=== PATIENT | female | born 1935 | race Caucasian/White ===

== ENCOUNTER 2016-10-02 15:37 | Emergency (ER) | payer MEDICARE, OTHER ==
[2016-10-02 15:47] VITALS: BP 153/95; TEMP 97.9; O2SAT 91
--- NOTE | 2016-10-02 16:13 | RAD ---
PROCEDURE: Ankle,Right 3 Views CLINICAL HISTORY: twisted fell INDICATION: Same as above COMPARISON: None . TECHNIQUE: 3.0 Views of the right ankle were done. FINDINGS: There is nondisplaced spiral fracture through the distal right fibula extending into the distal tibiofibular articulation. There is adjacent soft tissue swelling. There is a small plantar calcaneal spur. There is presence of a 5 mm well-circumscribed lytic lesion with sclerotic margins in the medial subarticular talar dome and may represent a small osteochondral defect There is generalized osteopenia of the bones The joint spaces are relatively well-maintained. There is no visualization of any radiopaque foreign bodies. IMPRESSION: There is nondisplaced spiral fracture through the distal right fibula extending into the distal tibiofibular articulation. There is adjacent soft tissue swelling. There is a small plantar calcaneal spur. There is presence of a 5 mm well-circumscribed lytic lesion with sclerotic margins in the medial subarticular talar dome and may represent a small osteochondral defect. Electronically signed by: Jeronimo Steiner MD 10/02/2016 4:13 PM CDT
--- NOTE | 2016-10-02 16:50 | ED.PDOC ---
History of Present Illness - General Chief Complaint: Lower Extremity Injury Stated Complaint: fall Time Seen by Provider: 10/02/16 15:38 Source: patient Exam Limitations: no limitations - History of Present Illness Initial Comments: the patient is an 80-year-old female who twisted her right ankle and fell when she was walking across the street. She injured her right ankle but no other injuries. The laceration. There is swelling and tenderness about the medial and lateral malleoli. She is neurovascularly intact distally. Tendon function appears to be preserved. Pulses are palpable distally. Capillary refill is good. Passive range of motion appears to be preserved. Occurred: just prior to arrival Pain - Lower Extremity: moderate: Right Ankle Method of Injury: fell, twisted Improving Factors: immobilization Worsening Factors: movement Allergies/Adverse Reactions: Allergies NO KNOWN ALLERGY Allergy (Verified 10/02/16 15:47) Home Medications: Ambulatory Orders Btfwwmbahclws-Jwau-Hyxjbshbwp [Fioricet] 1 ea PO Q8H PRN #21 tab 10/02/16 Review of Systems - Review of Systems Constitutional: States: no symptoms reported EENTM: States: no symptoms reported Respiratory: States: no symptoms reported Cardiology: States: no symptoms reported Gastrointestinal/Abdominal: States: no symptoms reported Genitourinary: States: no symptoms reported Musculoskeletal: States: see HPI Skin: States: no symptoms reported Neurological: States: no symptoms reported Endocrine: States: no symptoms reported All other Systems: No Change from Baseline Past Medical History (General) - Patient Medical History Hx of COPD: Yes Surgical History: no surgical history - Vaccination History Hx Tetanus, Diphtheria Vaccination: No Hx Influenza Vaccination: No Hx Pneumococcal Vaccination: No Immunizations Up to Date: No - Social History Hx Tobacco Use: Yes Hx Alcohol Use: No Hx Substance Use: No Hx Substance Use Treatment: No Hx Depression: No - Activities of Daily Living Hospice Agency (if applicable):: None - Female History Patient is a Female of Child Bearing Age (10 -59 yrs old): No Patient : No Family Medical History - Family History Mother Family History: Unknown Physical Exam - Physical Exam General Appearance: Alert, Comfortable, No apparent distress Eyes, Ears, Nose, Throat: PERRL/EOMI, normal ENT inspection Neck: non-tender, full range of motion, supple Cardiovascular/Respiratory: normal peripheral pulses, normal breath sounds, no respiratory distress, other - regular rate Thigh/Hip: normal inspection, non-tender, no evidence of injury, normal ROM Leg: normal inspection, non-tender, no evidence of injury, normal ROM Knee: normal inspection, non-tender, no evidence of injury, normal ROM Ankle: pain, swelling - see history of present illness, other Foot: normal inspection, non-tender, no evidence of injury, normal ROM Neuro/Tendon: normal sensation, normal motor functions, normal tendon functions Mental Status: alert, oriented x 3 Comments: Vital Signs - 24 hr 10/02/16 15:38 Temperature 97.9 F Pulse Rate [ 88 pulse ox] Respiratory 20 Rate Blood Pressure 153/95 [Left Arm] O2 Sat by Pulse 91 L Oximetry Progress - Progress Progress: 10/02/16 16:50 the patient is a 80-year-old female presenting to the emergency room secondary to a fall while walking. The patient has sustained a bimalleolar fracture. The patient will be immobilized with splinting. Ibuprofen and Fioricet can be used for discomfort. ER warnings were given for any worsening. She needs to follow up with later this week for further evaluation and intervention is warranted. She is to use a walker and be nonweightbearing with that leg. ER warnings were given. 10/02/16 16:51 Departure - Departure Clinical Impression: Bimalleolar fracture of right ankle Qualifiers: Encounter type: initial encounter Fracture type: closed Qualifier Code: ( S82.841A) Displaced bimalleolar fracture of right lower leg, initial encounter for closed fracture Disposition: Discharge to Home or Self Care Condition: Fair Departure Forms: ED Discharge - Pt. Copy, Patient Portal Self Enrollment Instructions: DI for Ankle Fracture Diet: regular diet Activity: no pushing/pulling with affected limb Referrals: Kiko Saunders III, MD [Primary Care Provider] - 1-2 Weeks Prescriptions: Pwnfojiukgrnn-Pndi-Dmbqdspwxc [Fioricet] 1 ea PO Q8H PRN #21 tab PRN Reason: Pain Home Medications: Ambulatory Orders Vrhyfuzrayenb-Klwu-Thdcbjipdr [Fioricet] 1 ea PO Q8H PRN #21 tab 10/02/16 Additional Instructions: the patient is a 80-year-old female presenting to the emergency room secondary to a fall while walking. The patient has sustained a bimalleolar fracture. The patient will be immobilized with splinting. Ibuprofen and Fioricet can be used for discomfort. ER warnings were given for any worsening. She needs to follow up with later this week for further evaluation and intervention is warranted. She is to use a walker and be nonweightbearing with that leg. ER warnings were given.
[2016-10-02] MEDS ORDERED: IBUPROFEN 200 MG TAB PO ONE (16:52)
[2016-10-02] MEDS ORDERED: HYDROcodone 5MG/APAP 325MG 1 EA TAB PO ONE (16:52)
== END 2016-10-02 17:17 | disposition home or self-care (01) ==
LOC: ER 15:37
DX: S82.841A Displaced bimalleolar fracture of right lower leg, initial encounter for closed fracture (principal); J44.9 Chronic obstructive pulmonary disease, unspecified; Z87.891 Personal history of nicotine dependence; W19.XXXA Unspecified fall, initial encounter; X50.1XXA Overexertion from prolonged static or awkward postures, initial encounter; Y92.410 Unspecified street and highway as the place of occurrence of the external cause

== ENCOUNTER → 2016-10-05 | Outpatient (CLI) | payer MEDICARE, OTHER ==
--- NOTE | 2016-10-05 13:37 | RAD ---
EXAM DESCRIPTION: Ankle,Right 3 Views CLINICAL HISTORY: 80 years,Female,FX COMPARISON: October 02, 2016 FINDINGS: The right ankle demonstrates demonstrates overlying splinting material. There is a nondisplaced oblique fracture to the distal fibula and a nondisplaced fracture of the lateral talus as well. Ankle mortise and talar dome unremarkable. Soft tissues are unremarkable. IMPRESSION: Newly casted right ankle with a bimalleolar fracture nondisplaced [] Electronically signed by: Kiko Woodard MD 10/05/2016 1:27 PM CDT
== END | disposition home or self-care (01) ==
LOC: RAD 09:36
PROVIDERS: ATTEND Orthopaedic Surgery
DX: M25.571 Pain in right ankle and joints of right foot (principal)

== ENCOUNTER → 2016-10-06 | Outpatient (CLI) | payer MEDICARE, OTHER | END | disposition home or self-care (01) | LOC: YCHH 10:41 | PROVIDERS: ATTEND Family Medicine | DX: D53.9 Nutritional anemia, unspecified (principal); I10 Essential (primary) hypertension; J44.9 Chronic obstructive pulmonary disease, unspecified ==

== ENCOUNTER → 2016-10-09 | Outpatient (CLI) | payer MEDICARE, OTHER | END | disposition home or self-care (01) | LOC: YCHH 09:16 | PROVIDERS: ATTEND Family Medicine | DX: I10 Essential (primary) hypertension (principal); E53.8 Deficiency of other specified B group vitamins; E55.9 Vitamin D deficiency, unspecified; J44.9 Chronic obstructive pulmonary disease, unspecified ==

== ENCOUNTER → 2016-10-13 | Outpatient (CLI) | payer MEDICARE, OTHER ==
--- NOTE | 2016-10-14 10:40 | RAD ---
Procedure: 3 View right Ankle Exam date: 10/13/2016 8:58 AM CDT Ordering: REX QUIGLEY Clinical Indication: BIMALLEOLAR FX OF ANKLE Comparison: October 05, 2016 FINDINGS: Casting material in place. No significant interval healing of the bimalleolar fractures. No new fractures identified. There is diffuse disuse osteopenia. IMPRESSION: 1. Stable bimalleolar fractures with no significant callus formation. Casting material in place. No significant change. Electronically signed by: Rigoberto Bean MD 10/14/2016 10:39 AM CDT
== END | disposition home or self-care (01) ==
LOC: RAD 08:57
PROVIDERS: ATTEND Orthopaedic Surgery
DX: S82.844D Nondisplaced bimalleolar fracture of right lower leg, subsequent encounter for closed fracture with routine healing (principal)

== ENCOUNTER → 2016-10-16 | Outpatient (CLI) | payer MEDICARE, OTHER | END | disposition home or self-care (01) | LOC: YCHH 10:30 | PROVIDERS: ATTEND Family Medicine | DX: M17.2 Bilateral post-traumatic osteoarthritis of knee (principal); I10 Essential (primary) hypertension ==

== ENCOUNTER → 2016-10-18 | Outpatient (CLI) | payer OTHER | END | disposition home or self-care (01) | LOC: YCHH 17:23 | PROVIDERS: ATTEND Family Medicine | DX: J44.9 Chronic obstructive pulmonary disease, unspecified (principal); I10 Essential (primary) hypertension; N39.0 Urinary tract infection, site not specified ==

== ENCOUNTER → 2016-10-27 | Outpatient (CLI) | payer OTHER ==
--- NOTE | 2016-10-27 11:53 | RAD ---
EXAM DESCRIPTION: Ankle,Right 3 Views CLINICAL HISTORY: 80 years,Female,BIMALLEOLAR FX OF ANKLE COMPARISON: October 13, 2016 FINDINGS: The right ankle demonstrates overlying cast obscuring most detail. There is oblique fracture to the distal fibula with minimal displacement stable. The fracture of the medial malleolus is not seen well through this cast but is nondisplaced. Ankle mortise and talar dome unremarkable. IMPRESSION: Right casted ankle fixating a minimal displaced oblique fracture to the distal right fibula and nondisplaced fracture of the medial malleolus. Note significant changes prior study. [] Electronically signed by: Kiko Woodard MD 10/27/2016 11:52 AM CDT
== END | disposition home or self-care (01) ==
LOC: RAD 08:39
PROVIDERS: ATTEND Orthopaedic Surgery
DX: S82.844D Nondisplaced bimalleolar fracture of right lower leg, subsequent encounter for closed fracture with routine healing (principal); X58.XXXA Exposure to other specified factors, initial encounter

== ENCOUNTER 2016-11-11 08:44 | Emergency (ER) | payer MEDICARE ==
--- NOTE | 2016-11-11 08:56 | ED.PDOC ---
History of Present Illness - General Chief Complaint: Respiratory Problem Stated Complaint: Difficulty breathing Time Seen by Provider: 11/11/16 08:55 Source: patient, RN notes reviewed, Vital Signs reviewed Exam Limitations: no limitations - History of Present Illness Initial Comments: Dominique Vallejo 80 y/o female with history of copd and hbp stated that she had non productive cough this am and sob given 4 nebulzer treatment with b agonist and continue to have difficulty breathing.She continue to smoke 1ppd and had been counseled by her primary md for the last 10 years accdg. to daughter but again counseled while talking to patient that best treatment for her is again to stop her smoking habits but stating she wont quit she only live by herself and smoking gives her some comfort.Denies fever chest pain and hemoptysis.Had closed reduction and plaster cast of right bimalleolar fracture several weeks ago. Timing/Duration: other - today Severity: moderate Activities at Onset: none Possible Cause: chronic episodes, smoke exposure - smoker for 60 years and continue to smoke Improving Factors: nothing Worsening Factors: nothing Associated Symptoms: cough Respiratory Risk Factors: other - cigarettes Allergies/Adverse Reactions: Allergies NO KNOWN ALLERGY Allergy (Verified 10/02/16 15:47) Review of Systems - Review of Systems Constitutional: States: no symptoms reported EENTM: States: no symptoms reported Respiratory: States: see HPI Cardiology: States: no symptoms reported Gastrointestinal/Abdominal: States: no symptoms reported Genitourinary: States: no symptoms reported Musculoskeletal: States: no symptoms reported Skin: States: no symptoms reported Neurological: States: no symptoms reported Endocrine: States: no symptoms reported Hematologic/Lymphatic: States: no symptoms reported Past Medical History (General) - Patient Medical History Hx of COPD: Yes Hx Hypertension: Yes Surgical History: other - knee,cataract,hysterectomy - Vaccination History Hx Tetanus, Diphtheria Vaccination: No Hx Influenza Vaccination: No Hx Pneumococcal Vaccination: No - Social History Hx Tobacco Use: Yes - continue to smoke Hx Alcohol Use: No Hx Substance Use: No Hx Substance Use Treatment: No Hx Depression: No - Activities of Daily Living Patient Lives Alone: Yes Grooming Ability: Independent Eating (Feeding) Ability: Independent Toileting Ability: Minimum Assistance - Female History Patient is a Female of Child Bearing Age (10 -59 yrs old): No Patient : No Family Medical History - Family History Mother Family History: Unknown Hx Family Asthma: Yes - copd-dad Physical Exam - Physical Exam General Appearance: Alert, Anxious, No apparent distress Eyes, Ears, Nose, Throat Exam: PERRL/EOMI, normal ENT inspection, TMs normal, pharynx normal Neck: non-tender, full range of motion, supple, normal inspection Respiratory: chest non-tender, no respiratory distress, rhonchi Cardiovascular/Chest: normal peripheral pulses, regular rate, rhythm, no JVD, no murmur, tachycardia Peripheral Pulses: radial,right: 2+, radial,left: 2+ Gastrointestinal/Abdominal: normal bowel sounds, non tender, soft, no organomegaly Extremity: normal range of motion, non-tender, normal inspection, no pedal edema , no calf tenderness, other - right leg in cast Neurologic: no motor/sensory deficits, alert, normal mood/affect, oriented x 3 Skin Exam: normal color, warm/dry Lymphatic: no adenopathy Progress - Results/Orders Results/Orders: 11/11/16 10:17 CTA Chest [CT] Stat 11/11/16 10:53 LACTIC ACID Stat PARTIAL THROMBOPLASTIN TIME Stat PROTHROMBIN TIME Stat ABG [Arterial Blood Gas] Stat Laboratory Results WBC 13.5 K/mm3 (4.8-10.8) H 11/11/16 09:28 RBC 4.58 M/mm3 (4.20-5.40) 11/11/16 09:28 Hgb 13.6 gm/dL (12.0-16.0) 11/11/16 09:28 Hct 41.8 % (36.0-47.0) 11/11/16 09:28 MCV 91.3 fl (81.0-99.0) 11/11/16 09:28 MCH 29.8 pg (27.0-31.0) 11/11/16 09:28 MCHC 32.6 g/dL (33.0-37.0) L 11/11/16 09:28 RDW 15.4 % (11.5-14.5) H 11/11/16 09:28 Plt Count 282 K/mm3 (130-400) 11/11/16 09:28 MPV 8.2 fl (7.40-10.4) 11/11/16 09:28 Absolute Neuts (auto) 12.70 K/uL (1.8-6.8) H 05/13/17 09:28 Absolute Lymphs (auto) 0.40 K/uL (1.0-3.4) L 11/11/16 09:28 Absolute Monos (auto) 0.40 K/uL (0.2-0.8) 11/11/16 09:28 Absolute Eos (auto) 0.00 K/uL (0.0-0.4) 11/11/16 09:28 Absolute Basos (auto) 0.00 K/uL (0.0-0.1) 11/11/16 09:28 Neutrophils % 93.5 % (42.0-78.0) H 11/11/16 09:28 Lymphocytes % 3.0 % (20.0-50.0) L 11/11/16 09:28 Monocytes % 3.2 % (2.0-9.0) 11/11/16: Eosinophils % 0.1 % (1.0-5.0) L 11/11/16: Basophils % 0.2 % (0.0-2.0) 11/11/16 09:28 PT 12.0 SECONDS (9.4-12.5) 11/11/16 09:28 INR 1.060 11/11/16 09:28 PTT (SP) 30.6 SECONDS (25.1-36.5) 11/11/16 09:28 D-Dimer, Quantitative 3275 ng/mL (0-230) H* 11/11/16 09:28 Sodium 126 mmol/L (135-145) L 11/11/16 09:28 Potassium 4.2 mmol/L (3.6-5.0) 11/11/16 09:28 Chloride 95 mmol/L (101-111) L 11/11/16 09:28 Carbon Dioxide 23 mmol/L (21-31) 11/11/16 09:28 Anion Gap 12.2 (12-18) 11/11/16 09:28 BUN 14 mg/dL (7-18) 11/11/16 09:28 Creatinine 0.98 mg/dL (0.6-1.3) 11/11/16 09:28 BUN/Creatinine Ratio 14.3 (10-20) 11/11/16 09:28 Random Glucose 110 mg/dL (70-105) H 11/11/16 09:28 Serum Osmolality 254.5 mOsm/L (275-295) L* 11/11/16 09: Calcium 11.5 mg/dL (8.4-10.2) H 11/11/16 09: Magnesium 1.3 mg/dL (1.8-2.5) L 11/11/16 09: Total Bilirubin 0.7 mg/dL (0.2-1.0) 11/11/16 09: Direct Bilirubin 0.2 mg/dL (0-0.2) 11/11/16: Indirect Bilirubin 0.5 mg/dL (0.2-0.8) 11/11/16: AST 21 IU/L (10-42) 11/11/16: ALT 14 IU/L (10-60) 11/11/16: Alkaline Phosphatase 67 IU/L (42-121) 11/11/16 09: Creatine Kinase 50 IU/L (26-140) 11/11/16 09: CK-MB (CK-2) 4.9 ng/mL (0.0-4.4) H* 11/11/16 09: CK-MB (CK-2) % Not Reportable 11/11/16: Troponin I 0.12 ng/mL (0.01-0.05) H* 11/11/16 09: B-Natriuretic Peptide 90.9 pg/ml (0-100) 11/11/16 09: Serum Total Protein 6.4 gm/dL (6.4-8.2) 11/11/16 09: Albumin 3.4 g/dl (3.2-5.5) 11/11/16 09:28 Globulin Cancelled 11/11/16 09:28 Albumin/Globulin Ratio Cancelled 11/11/16 09:28 ABG Room air-ph-7.41,co2-30.4 po2-58% sao2-92% Fio2-90.2 % - EKG/XRAY/CT EKG: Sinus, Tachy, nonspecific ST T wave Chg Comments: heart rate-113;possible left atrial enlargement XRAY: chest - per radiologist large infiltrate in the right and lower mid lung zones and small pleural effusion CT Ordered: Yes - per radiologist-right hilar mass with enlrged node,pleural effusion,pe CT Interpretation Call Back: Yes - pe subsegmental Departure - Departure Clinical Impression: Dyspnea and respiratory abnormalities, Pulmonary embolus, right, Mass of hilum , Non-ST elevation ME (NSTEMI), Hyponatremia with decreased serum osmolality Pneumonia, organism unspecified Qualifiers: Laterality: right Lung location: middle lobe of lung Qualified Code(s): J18.9 - Pneumonia, unspecified organism Time of Disposition: 11:57 - D/W [facility] hospitalist Disposition: Transfer to Hospital Condition: Fair Departure Forms: Patient Portal Self Enrollment Referrals: Kiko Saunders III, MD [Primary Care Provider] - 1-2 Weeks
[2016-11-11] MEDS ORDERED: methylPREDNISolone SODIUM SUC 125 MG/2 ML VIAL IV ONE (09:00)
[2016-11-11] MEDS ORDERED: IPRATROPIUM/ALBUTEROL 3 ML VIAL NEB ONE ×2 (09:06→09:07)
--- NOTE | 2016-11-11 09:35 | RAD ---
PROCEDURE: XR CHEST 1 VIEW HISTORY: sob COMPARISON: 10/19/2016 TECHNIQUE: Single projection of the chest was done. FINDINGS: There is presence of large infiltrates in the right mid and lower lung zone, minimal infiltrate in the left lower lung zone and probable small right-sided pleural effusion . The cardiomediastinal silhouette is stable. There are no pneumothoraces IMPRESSION: There is presence of large infiltrates in the right mid and lower lung zone, minimal infiltrate in the left lower lung zone and probable small right-sided pleural effusion . Electronically signed by: Jernoimo Steiner MD 11/11/2016 9:35 AM CDT
--- NOTE | 2016-11-11 11:13 | CT ---
PROCEDURE: CTA Chest HISTORY: sob Indication: Same as above Comparison: Chest x-ray done on the same day Technique: CT of the chest was done with intravenous contrast followed by CT angiography of the pulmonary arteries. Coronal, Sagittal and 3D volumetric MIP reconstructions were generated from the acquired data. The patient was injected with contrast intravenously, without any documented immediate adverse reactions. This exam was performed according to our departmental dose-optimization program, which includes automated exposure control, adjustment of the mA and/or KV according to the patient's size and/or use of iterative reconstruction technique. FINDINGS: There is presence of a 3.1 x 1.9 x 2.4 cm right hilar mass/enlarged lymph node and presence of small free flowing right-sided pleural effusion as well as diffuse infiltrates in the right upper, right middle and right lower lobes of the lung. There is presence of a thrombus in a subsegmental branch in the right lower lobe of the lung The trachea, bilateral mainstem bronchi and the bilateral main segmental bronchi are patent without any intraluminal mass lesions. There is no gross evidence of clinically significant thoracic aortic aneurysm or thoracic aortic dissection. There is no clinically significant pericardial effusion. There are no other pathologically enlarged lymph nodes in the mediastinum, left hilar, bilateral supraclavicular or the bilateral axillary regions. The thoracic bony rib cage appears grossly unremarkable. The visualized thoracic spine shows generalized osteopenia and moderate compression deformities involving the T6 and T7 vertebrae and mild compression deformity involving the T9 vertebra. Limited evaluation of the evaluated upper abdomen does not show any gross abnormalities. The findings were discussed with Dr. Coello at 11:11 AM IMPRESSION: There is presence of a thrombus in a subsegmental branch in the right lower lobe of the lung There is presence of a 3.1 x 1.9 x 2.4 cm right hilar mass/enlarged lymph node and presence of small free flowing right-sided pleural effusion as well as diffuse infiltrates in the right upper, right middle and right lower lobes of the lung. The visualized thoracic spine shows generalized osteopenia and moderate compression deformities involving the T6 and T7 vertebrae and mild compression deformity involving the T9 vertebra. These findings are most likely old Electronically signed by: Jeronimo Steiner MD 11/11/2016 11:12 AM CDT
[2016-11-11] MEDS ORDERED: ASPIRIN (CHEWABLE) 81 MG TAB PO ONE (11:17)
[2016-11-11] MEDS ORDERED: HEPARIN SODIUM (PORCINE) 5,000 U/ML VIAL IV ONE (11:19)
[2016-11-11] MEDS ORDERED: HEPARIN IVPB SCH (11:30)
[2016-11-11] MEDS ORDERED: cefTRIAXone SODIUM 1 GM in SODIUM CHL 0.9% 50ML MIN-BAG+ 50 ML IVPB ONE (11:31)
[2016-11-11] MEDS ORDERED: SODIUM CHL 0.9% 50ML MIN-BAG+ 50 ML IVPB ONE (11:43)
[2016-11-11] MEDS ORDERED: cefTRIAXone SODIUM 1 GM VIAL ONE (11:43)
[2016-11-11 11:53] VITALS: BP 135/59; TEMP 99.6; O2SAT 98
== END 2016-11-11 12:31 | disposition short-term general hospital (02) ==
LOC: ER 08:44
DX: J18.9 Pneumonia, unspecified organism (principal); I26.99 Other pulmonary embolism without acute cor pulmonale; I21.4 Non-ST elevation (NSTEMI) myocardial infarction; E87.1 Hypo-osmolality and hyponatremia; R22.2 Localized swelling, mass and lump, trunk; I10 Essential (primary) hypertension; F17.210 Nicotine dependence, cigarettes, uncomplicated

== ENCOUNTER → 2016-11-16 | Outpatient (CLI) | payer MEDICARE ==
--- NOTE | 2016-11-16 16:33 | RAD ---
EXAM DESCRIPTION: Ankle,Right 3 Views CLINICAL HISTORY: 80 years Female, BIMALLEOLAR FX OF ANKLE IMPRESSION: Today's exam is compared October 13, 2016. 3 views of the right ankle with overlying cast material noted. Only minimal callus is seen about the obliquely oriented distal fibular fracture. The syndesmosis, lateral clear space and ankle mortise are preserved on today's study. The medial malleolus fracture is not well visualized on today's exam is likely healed. Electronically signed by: Gage Hodges MD 11/16/2016 4:33 PM CDT
== END | disposition home or self-care (01) ==
LOC: RAD 09:35
PROVIDERS: ATTEND Orthopaedic Surgery
DX: S82.844D Nondisplaced bimalleolar fracture of right lower leg, subsequent encounter for closed fracture with routine healing (principal)

== ENCOUNTER → 2016-11-30 | Outpatient (CLI) | payer OTHER ==
--- NOTE | 2016-11-30 10:12 | RAD ---
EXAM DESCRIPTION: Ankle,Right 3 Views CLINICAL HISTORY: 80 years, Female, BIMALLEOLAR FX OF ANKLE COMPARISON: November 16, 2016, October 02, 2016 TECHNIQUE: AP/lateral/oblique of the ankle FINDINGS: Out of cast views demonstrate significant osteopenia with a preserved ankle mortise with very slight widening of the joint compartment medially. A minimally displaced nonangulated fracture of the distal fibula above the ankle mortise is present with at least mild bridging callus formation but incomplete bony healing and resolution of the fracture line noted. A new fracture or displacement is not apparent. IMPRESSION: 1. Incompletely healed distal fibular fracture with minimal bridging callus formation and residual lucency along the oblique fracture line above the ankle mortise. 2. Intact ankle mortise with minimal widening of the medial joint compartment, unchanged from prior studies. Electronically signed by: Mauricio Monroy MD 11/30/2016 10:11 AM CDT
== END | disposition home or self-care (01) ==
LOC: RAD 09:31
PROVIDERS: ATTEND Orthopaedic Surgery
DX: S82.844D Nondisplaced bimalleolar fracture of right lower leg, subsequent encounter for closed fracture with routine healing (principal); X58.XXXA Exposure to other specified factors, initial encounter

== ENCOUNTER 2016-12-02 21:40 | Inpatient (IN) | payer OTHER ==
[2016-12-02] MEDS ORDERED: HYDROmorphone HCL INJ 2 MG/ML VIAL ONE (21:47)
[2016-12-02] MEDS ORDERED: ONDANSETRON INJ 4 MG/2 ML VIAL ONE (21:47)
[2016-12-02] MEDS ORDERED: ONDANSETRON INJ 4 MG/2 ML VIAL IV ONE (21:48)
[2016-12-02] MEDS ORDERED: HYDROmorphone HCL INJ 2 MG/ML VIAL IV ONE (21:52)
--- NOTE | 2016-12-02 22:07 | RAD ---
EXAM DESCRIPTION: Hip,Left 2 Views CLINICAL HISTORY: 80 years Female Fall COMPARISON: None. TECHNIQUE: Two view FINDINGS: There is an intertrochanteric fracture of the left hip. There is varus deformity at the fracture. Mild displacement of the lesser trochanteric fragments. IMPRESSION: INTERTROCHANTERIC FRACTURE OF THE LEFT HIP WITH VARUS DEFORMITY Electronically signed by: Veena Jung 12/02/2016 10:07 PM CDT
--- NOTE | 2016-12-02 22:47 | ED.PDOC ---
History of Present Illness - General Chief Complaint: Lower Extremity Injury Stated Complaint: fall/possible hip fx Time Seen by Provider: 12/02/16 22:30 Source: patient, RN notes reviewed, Vital Signs reviewed, family Additional Information: History of fall at home and landed on left hip with possible hip fracture. Left lower extremity externally rotated and shortened upon initial assessment by EMS. Pt fell and unable to get up due to pain. Otherwise, pt denies any other complaints. - History of Present Illness Occurred: just prior to arrival Pain - Lower Extremity: severe: Left Thigh/Hip Method of Injury: fell Improving Factors: immobilization Worsening Factors: movement Allergies/Adverse Reactions: Allergies NO KNOWN ALLERGY Allergy (Verified 10/02/16 15:47) Home Medications: Ambulatory Orders Albuterol Sulfate Nebs [Proventil Nebs] 2.5 mg INH Q4H PRN 11/11/16 Albuterol Sulfate [Proair Hfa] 2 puff INH Q4H PRN 11/11/16 Amlodipine Besylate [Norvasc] 2.5 mg PO DAILY 11/11/16 Donepezil Hydrochloride [Aricept] 10 mg PO DAILY 11/11/16 Lisinopril 40 mg PO DAILY 11/11/16 Tiotropium [place] Monohydrate [Spiriva Handihaler] 1 puff INH DAILY 11/11/16 cloNAZepam [KlonoPIN] 0.5 mg PO BID 11/11/16 Review of Systems - Review of Systems Constitutional: States: no symptoms reported EENTM: States: no symptoms reported Respiratory: States: no symptoms reported Cardiology: States: no symptoms reported Gastrointestinal/Abdominal: States: no symptoms reported Genitourinary: States: no symptoms reported Musculoskeletal: States: see HPI Skin: States: no symptoms reported Neurological: States: no symptoms reported Endocrine: States: no symptoms reported Hematologic/Lymphatic: States: no symptoms reported Past Medical History (General) - Patient Medical History Hx Stroke: No Hx of COPD: Yes Hx Congestive Heart Failure: No Hx Hypertension: Yes Hx Diabetes: No Hx MRSA: No Hx Other PMH: Yes - PE diagnosed 3 weeks ago. On Eliquis. - Vaccination History Hx Tetanus, Diphtheria Vaccination: No Hx Influenza Vaccination: No Hx Pneumococcal Vaccination: No - Social History Hx Tobacco Use: Yes - continue to smoke Hx Alcohol Use: No Hx Substance Use: No Hx Substance Use Treatment: No Hx Depression: No - Female History Patient : No Family Medical History - Family History Mother Family History: Unknown Living Status: Hx Family Asthma: Yes - copd-dad Physical Exam - Physical Exam General Appearance: Frail, Obvious distress - with movement of left lower extremity. Otherwise, comfortable at rest Eyes, Ears, Nose, Throat: PERRL/EOMI, normal ENT inspection, TMs normal, pharynx normal Neck: non-tender, full range of motion, supple Cardiovascular/Respiratory: regular rate, rhythm, normal peripheral pulses, no respiratory distress Gastrointestinal/Abdominal: non-tender Back: normal inspection Thigh/Hip: deformity - left Lower extremity shortened and externally rotated, limited ROM Leg: normal inspection, no evidence of injury Knee: normal inspection, no evidence of injury Ankle: other - right ankle with walking boot for healing ankle fracture Foot: normal inspection Neuro/Tendon: normal sensation, normal motor functions, responds to pain Mental Status: alert, oriented x 3 Skin: normal color Progress - Progress Progress: 12/02/16 22:50 History, Exam suggestive of left hip fracture, confirmed with x-ray. Dr. Wilson contacted and agreed to care for patient's hip fracture if Hospitalist agreed to manage patient's medical issues on the mendoza. Pt appears to be stable medically - no respiratory distress. Stable COPD and PE without complications at this time. - Results/Orders Results/Orders: 12/02/16 12/02/16 22:42 22:45 Temperature 98.2 F Pulse Rate [L 76 Arm] Respiratory 20 18 Rate Blood Pressure 165/56 132/80 [L Arm] O2 Sat by Pulse 97 99 Oximetry - EKG/XRAY/CT XRAY: hip - Intertrochanteric fracture of left hip with varus deformity Departure - Departure Clinical Impression: Intertrochanteric fracture of left femur Qualifiers: Encounter type: initial encounter Fracture type: closed Qualified Code(s): S72.142A - Displaced intertrochanteric fracture of left femur, initial encounter for closed fracture Time of Disposition: 22:55 Disposition: Admit Patient Condition: Fair Departure Forms: ED Discharge - Pt. Copy, Patient Portal Self Enrollment Referrals: Kiko Saunders III, MD [Primary Care Provider] - 1-2 Weeks Home Medications: Ambulatory Orders Albuterol Sulfate Nebs [Proventil Nebs] 2.5 mg INH Q4H PRN 11/11/16 Albuterol Sulfate [Proair Hfa] 2 puff INH Q4H PRN 11/11/16 Amlodipine Besylate [Norvasc] 2.5 mg PO DAILY 11/11/16 Donepezil Hydrochloride [Aricept] 10 mg PO DAILY 11/11/16 Lisinopril 40 mg PO DAILY 11/11/16 Tiotropium [place] Monohydrate [Spiriva Handihaler] 1 puff INH DAILY 11/11/16 cloNAZepam [KlonoPIN] 0.5 mg PO BID 11/11/16 Decision To Admit - Decistion To Admit Decision to Admit Reason: Accidental Injury - Left Hip Fracture Decision to Admit Date: 12/02/16 Decision to Admit Time: 22:35
--- NOTE | 2016-12-02 23:09 | HP ---
SUPERVISING PHYSICIAN: Jonathan Cardona M.D. CHIEF COMPLAINT: Left hip fracture. HISTORY OF PRESENT ILLNESS: Ms. Vallejo is an 80 year-old female patient that fell at home. She has recently had a right ankle fracture and was recently put in a boot. According to her family tonight, the patient was getting off the toilet when she tripped over her boot and landed on her left hip. EMS was notified and on the scene the patient was found to have an externally rotated and shortened left leg with good pulses. She was brought to the Emergency Room with x-rays completed and per radiology interpretation there was note of a left intertrochanteric fracture of the left hip with varus deformity. I was notified of the patient's injuries by Cora Cunha physician who said he had consulted with Dr. Wilson in regards to the patient's injuries and if the patient was medically stable enough to be admitted, the patient could be placed in the Medical/Surgical floor for repair of the hip in the near future. The patient has a significant history of chronic obstructive pulmonary disease with a recent case of pneumonia, and having been treated at [facility] for a pulmonary embolism and placed on Eliquis. The patient is now going to be admitted to the Medical/Surgical floor for consultation services of orthopedic care through Dr. Jefferson Wilson and continued treatment and medical management. PAST MEDICAL HISTORY: 1. Hypertension. 2. Chronic obstructive pulmonary disease. 3. Fracture of the fifth metatarsal of the right foot in 2003. 4. Osteoporosis diagnosed in 2009. 5. 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 6. General anxiety disorder. 7. Tobacco abuse, current smoker since 1952. PAST SURGICAL HISTORY: 1. Appendectomy in 1954. 2. Total abdominal hysterectomy with bilateral salpingo-oophorectomy for benign fibroma of the left ovary. 3. Tubal ligation. 4. Left knee surgery in 1971. 5. Bilateral cataracts in 2008. 6. Cranio-orbit zygomatic skull based approach resection of tumor with pathology revealing a fragment of fibro connected and skeletal muscle tissue with distorted vasculature suggestive of hemangioma in 2009. 7. Echocardiogram in 2008 with an ejection fraction of 65%. HOME MEDICATIONS: 1. Benadryl 25 mg as needed. 2. Motrin 400 mg every 4 hours as needed. 3. Mucinex 600 mg twice daily. 4. Eliquis 5 mg twice daily. 5. Butalbital/APAP/caffeine 1 capsule every 8 hours as needed. 6. Advair Diskus 25/50 one puff b.i.d. 7. Klonopin 0.5 mg at bedtime. 8. Lisinopril 400 mg daily. 9. Aricept 10 mg daily. 10. Norvasc 2-1/2 mg daily. 11. Spiriva 1 puff daily. 12. ProAir inhaler 2 puffs inhaled every 4 hours as needed. ALLERGIES: NO KNOWN DRUG ALLERGIES. FAMILY HISTORY: Father at age 77 secondary to lung cancer and heart disease. Mother at 92 from old age. SOCIAL HISTORY: The patient is a retired [employer] employee. She is , has 4 children. She is a current smoker of approximately 1 pack per day since age 17. She drinks alcohol very infrequently, typically consuming Vodka but denies any illicit drug use. REVIEW OF SYSTEMS: Difficult to obtain as the patient has dementia and is not cooperative in giving medical history. Review of systems obtained from family members. CONSTITUTIONAL: The patient was not having any complaints of weight loss, chills or fevers. HEENT: There was no mention of headaches, visual disturbances, ear aches, sore throat, nasal congestion or cough. RESPIRATORY: She does have a history of smoking and chronic obstructive pulmonary disease by no reported recent cough, congestion, chest congestion. Does have a history of a recently diagnosed pulmonary embolism and treated for pneumonia at [facility] within the last 3 weeks currently on Eliquis. CARDIOVASCULAR: Denied any chest pains, syncopal episodes, palpitations. Does have history as noted above for pulmonary embolism diagnosed 3 weeks ago on Eliquis. GASTROINTESTINAL: The patient was not complaining of any nausea, vomiting, diarrhea or constipation. MUSCULOSKELETAL: As per History of Present Illness with a left hip fracture from same level fall. NEUROLOGIC: The patient has a history of dementia secondary to Alzheimer's and according to family members, it has been her baseline mental status with no abnormalities noted. PHYSICAL EXAMINATION: VITAL SIGNS: On admission from the Emergency Department showed temperature 97.0 , pulse 77, blood pressure 155/77, respirations 20, O2 sat 95% on room air. Admission weight is 64.0 kg. GENERAL: On admission to the Medical/Surgical floor, the patient appears to be resting in no distress, having recently received Dilaudid but does have obvious pain with any movement of her left lower extremity. HEENT: Tympanic membranes are partially occluded by cerumen bilaterally. Oropharynx is pink and moist without any lesions. NECK: Non-tender and supple with full range of motion. No jugular venous distention noted. CHEST: Lungs are clear to auscultation bilaterally without any rhonchi, wheezing or rales. CARDIOVASCULAR: Regular rate and rhythm without appreciable murmurs, gallops, or rubs. ABDOMEN: Non-tender with positive bowel sounds. EXTREMITIES: There is noted deformity of the left hip, extremely shortened and externally rotated with limited range of motion. Bilateral knees were without any evidence of trauma. Right ankle is tender to touch. NEUROLOGIC: The patient is arousable but only aware of herself and family members, not surroundings or time or date. The patient's family reports the patient is near her baseline status. Notes that she can get quite unruly at times secondary to dementia. Facial features are symmetrical. Extraocular movements are within normal limits. There was no nystagmus. There was no notable localizing or lateralizing neurologic deficits, although lower extremity exam is limited due to acute fracture of the left hip. All labs in addition to radiographic studies were obtained after the patient was admitted to the Medical/Surgical floor. LABORATORY: White count on admission was 8.1, hemoglobin 12.5, hematocrit 38.3 , platelet count 262,000. Differential is without a left shift. Coagulation showed an elevated PT of 14.4 with INR of 1.28, PTT was 39.9. Chemistries showed a low sodium of 123, potassium 4.6, carbon dioxide was 19, BUN 7, creatinine 0.63. Glucose 122, serum osmolality was low at 247. Liver functions showed to be within normal limits. CK was 74, CK-MB 5.2, troponin was less than 0.02. BNP was 66. Urinalysis showed 15 ketones, small amount of blood. Microscopic only revealed 5 to 10 RBCs, otherwise within normal limits. RADIOLOGY: Initially in the Emergency Department hip x-ray was completed and per radiology interpretation showed an intertrochanteric fracture of the left hip with varus deformity. Chest x-ray is pending. EKG is pending. ASSESSMENT: 1. Acute intertrochanteric fracture of the left hip status post same level fall requiring surgical intervention with the patient being high risk secondary to the patient being on Eliquis. 2. History of hypertension. 3. Chronic obstructive pulmonary disease in a chronic smoker with recently being treated for pneumonia at [facility]. 4. 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 5. Chronic tobacco abuse since age 17. 6. History of pulmonary embolism diagnosed 11/11/16 and treated at [facility] and started on Eliquis. 7. Recent history of pneumonia right middle and lower lobes with initiation of antibiotic therapy and treatment at [facility] with the patient pending repeat study of x-ray with the patient having completed antibiotic therapy. PLAN: The patient will be placed in the hospital tonight on the Medical/ Surgical floor with consultation pending with Dr. Wilson for repair of the left hip fracture. She will be provided pain management with Dilaudid as needed. Will go ahead and hold her Eliquis in anticipation of surgical procedure in the morning likely to be held at least 24 hours as the patient is a high risk for bleeding. Will await Dr. Wilson's consultation with anticipation of surgery on Sunday morning or Sunday. Will continue with surgical clearance. Will anticipate length of stay to be 3 to 5 days after which she meets goals for physical therapy, discharge planning will be needed as the patient is at a significant disadvantage with a recent right ankle fracture requiring a walking boot. Until then, will continue to monitor the patient and treat appropriately. #[id number] [facility]
[2016-12-02] MEDS ORDERED: ACETAMINOPHEN 325 MG TAB PO PRN (23:54)
[2016-12-02] MEDS ORDERED: MORPHINE SULFATE INJ 10 MG/ML VIAL IV PRN (23:54)
[2016-12-03] MEDS: SODIUM CHLORIDE 0.9% 1000ML 1,000 ML IVS PRN ×2 (01:25→20:55)
[2016-12-03] MEDS: SODIUM CHLORIDE 0.9% (FLUSH) 10 ML SYG IV PRN ×3 (01:26→20:54)
[2016-12-03] MEDS ORDERED: NICOTINE PATCH 21 MG TD SCH (02:30)
[2016-12-03] MEDS: HYDROmorphone HCL INJ 2 MG/ML VIAL IV PRN ×4 (03:00→18:33)
[2016-12-03] MEDS: IV SET AND CAP CHANGE INJ INJ SCH (03:07)
--- NOTE | 2016-12-03 06:31 | RAD ---
Clinical History : preop , MAIN Exam : Portable AP view of the chest 12/03/2016 7:00 AM CDT Comparisons : CT pulmonary angiogram November 11, 2016 Findings : The lungs are clear without focal consolidation or pleural effusion. The heart is normal in size. The mediastinal contours are normal in appearance. There are vascular calcifications along the aortic arch. The patient is osteopenic which limits evaluation of the thoracic spine. The ribs and shoulders are grossly normal. Limited evaluation of the upper abdomen demonstrates no gross abnormalities. Impression: No acute cardiopulmonary disease Electronically signed by: Li Modi MD 12/03/2016 6:31 AM CDT
[2016-12-03] MEDS: ALBUTEROL SULFATE 2.5 MG/3 ML VIAL NEB SCH ×4 (08:35→20:09)
[2016-12-03] MEDS ORDERED: IBUPROFEN 400 MG TAB PO PRN (08:49)
[2016-12-03] MEDS ORDERED: FUROSEMIDE INJ 20 MG/2 ML VIAL IV ONE (08:52)
[2016-12-03] MEDS ORDERED: ACETAMINOPHEN-CAFF-BUTALBITAL 1 EA TAB PO PRN (09:00)
[2016-12-03] MEDS ORDERED: SODIUM CHLORIDE 0.9% (FLUSH) 10 ML SYG IV SCH (09:00)
[2016-12-03] MEDS: FLUTICASONE/SALMETEROL 250/50 14 PUFF/17 GM INH INH SCH ×2 (09:56→20:43)
[2016-12-03] MEDS ORDERED: PANTOPRAZOLE INJECTION 40 MG in SODIUM CHLORIDE 0.9% 100ML 100 ML IVPB ONE (10:21)
[2016-12-03] MEDS ORDERED: PANTOPRAZOLE SODIUM IV 40 MG VIAL ONE (10:24)
[2016-12-03] MEDS ORDERED: FUROSEMIDE INJ 40 MG/4 ML VIAL ONE (10:25)
[2016-12-03] MEDS ORDERED: SODIUM CHL 0.9% 100ML MINI-BAG 100 ML IVPB ONE (10:41)
[2016-12-03] MEDS: LISINOPRIL 10 MG TAB PO SCH (11:29)
[2016-12-03] MEDS: amLODIPine BESYLATE 5 MG TAB PO SCH (11:29)
[2016-12-03] MEDS: guaiFENesin ER TAB 600 MG TAB PO SCH ×2 (11:29→20:46)
[2016-12-03] MEDS: DONEPEZIL HCL 5 MG TAB PO SCH (11:29)
--- NOTE | 2016-12-03 13:57 | CT ---
EXAM: CT PELVIS WITHOUT CONTRAST DATE: 12/03/2016 1:08 PM CDT INDICATION: Hip fracture COMPARISON: Hip x-ray 6017 TECHNIQUE: CT acquisition of the pelvis after the intravenous administration contrast was performed. Coronal and sagittal reconstructions were performed. Further delayed images were performed. Total radiation dose DLP: 503.04 mGy-cm FINDINGS: Markedly distended partially visualized gallbladder. Bladder: Underdistended with Travis in place. Small volume gas in the bladder lumen, likely secondary to catheterization. Reproductive organs: No CT abnormality. Gastrointestinal tract: Normal caliber. Peritoneum and retroperitoneum: No ascites or free air. No other fluid collection. Lymph nodes: Significant atherosclerotic calcification of the abdominal aorta and iliac vasculature. Vasculature: Normal. Bones: There is a comminuted, intertrochanteric fracture of the left proximal femur. There is separation of the lesser trochanter which lies anteromedially, with impaction of the femoral shaft. There is also comminution of the greater trochanter without significant distraction. The femoral head is well-seated within the acetabulum without evidence of dislocation. There is varus angulation of the femoral shaft. Surrounding soft tissue swelling without definite hematoma this time. Soft tissues: Normal. IMPRESSION: Comminuted, impaction fracture of the left proximal femur as above with varus angulation. No dislocation. Marked distention of probable gallbladder which is partially visualized. Recommend correlation with ultrasound. Electronically signed by: Robson Hedrick MD 12/03/2016 1:56 PM CDT
[2016-12-03] MEDS: diphenhydrAMINE HCL 50 MG/ML VIAL IV PRN ×2 (15:02→20:55)
[2016-12-03] MEDS ORDERED: HALOPERIDOL LACTATE INJ 5 MG/ML VIAL IM ONE (18:25)
[2016-12-03] MEDS ORDERED: NICOTINE PATCH 21 MG TD ONE (19:35)
[2016-12-03] MEDS: NICOTINE PATCH 21 MG TD SCH (20:46)
--- NOTE | 2016-12-03 21:25 | PCM.CORE ---
Physician DVT/VTE - Prophylaxis Currently: Patient already on anticoagulation therapy - kelly - Nurse DVT Assessment & Total Each Risk Factor Represents 5 Points: Hip,Pelvis,leg Fx <1month Each Risk Factor Represents 3 Points: Age over 75 years, Hx of DVT/PE Each Risk Factor Represents 2 Points: Confined to bed >72 hours Each Risk Factor Represents 1 Point: Hx Major Surgery <1month, Hx of smoking past year Each Risk Factor is 1 Point: Serious Lung disease (pnemonia <1month, COPD, emphysema,etc) DVT Assessment Score: 16 - 5 or more Very High Risk Treatments: Early Ambulation * - fx hip, Sequential Compression Device
[2016-12-04] MEDS: SODIUM CHLORIDE 0.9% (FLUSH) 10 ML SYG IV PRN ×3 (00:04→05:14)
[2016-12-04] MEDS: HYDROmorphone HCL INJ 2 MG/ML VIAL IV PRN ×4 (00:04→19:33)
[2016-12-04] MEDS: diphenhydrAMINE HCL 50 MG/ML VIAL IV PRN ×3 (03:23→21:06)
[2016-12-04] MEDS: SODIUM CHLORIDE 0.9% 1000ML 1,000 ML IVS PRN ×3 (05:31→23:51)
[2016-12-04] MEDS ORDERED: ceFAZolin SODIUM 1 GM VIAL ONE ×2 (07:54→09:48)
[2016-12-04] MEDS ORDERED: VANCOMYCIN HCL INJ 1,000 MG VIAL IVPB ONE ×2 (07:54→09:49)
[2016-12-04] MEDS: FLUTICASONE/SALMETEROL 250/50 14 PUFF/17 GM INH INH SCH ×2 (08:00→20:34)
[2016-12-04] MEDS: TIOTROPIUM INHALER INH SCH (08:00)
[2016-12-04] MEDS: ALBUTEROL SULFATE 2.5 MG/3 ML VIAL NEB SCH ×4 (08:11→20:33)
[2016-12-04] MEDS ORDERED: HALOPERIDOL LACTATE INJ 5 MG/ML VIAL IM ONE (08:18)
--- NOTE | 2016-12-04 08:35 | PN ---
SUPERVISING PHYSICIAN: Jonathan Cardona MD DATE: 12/03/16 SUBJECTIVE: The patient has had good pain control management with Dilaudid and has been resting. Her family continues to remain at bedside to help with the patient with any confusional episodes. Dr. Wilson has seen the patient in consultation and based on the patient's medical history and her current Eliquis medication, surgery will be postponed until tomorrow. The patient remains afebrile. OBJECTIVE: VITAL SIGNS: Temperature 97.9. Pulse 82. Blood pressure 111/69. Respirations 16. Saturation 91% to 92% on room air. I&Os show negative balance of 385. Weight 64.0 kg. CHEST: Lung sounds are diminished towards the bases, but no obvious rhonchi or wheezing noted. ABDOMEN: Soft, nontender. Positive bowel sounds. EXTREMITIES: Distal pulses are strong at 1+. There is no notable edema to the lower extremities except as noted the deformity to the left hip with some lateral rotation. NEUROLOGIC: She remains arousable, but at times becomes confused, but according to family, this is her baseline status. LABORATORY: CBC shows white count 10.5, hemoglobin 11.7, hematocrit 35.7, platelet count 234,000. Differential does show a left shift. Coagulation studies show an PT 14.4, INR 1.28, PT-T 39.9. Chemistries show continued hyponatremia, although improved at 125 with now mild hypokalemia with 5.1. Carbon dioxide normalized at 23. BUN 9, creatinine 0.62, glucose 132, osmolality improved at 252. Liver functions continue to show normal levels. MICROBIOLOGY: No specimens submitted for review. RADIOLOGY: Chest x-ray per radiologic interpretation shows no acute cardiopulmonary disease. ASSESSMENT: 1. Acute intertrochanteric fracture of the left hip status post same level fall requiring surgical intervention with the patient being high risk secondary to the patient being on Eliquis. 2. History of hypertension. 3. Chronic obstructive pulmonary disease in a chronic smoker with recently being treated for pneumonia at [facility]. 4. 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 5. Chronic tobacco abuse since age 17. 6. History of pulmonary embolism diagnosed 11/11/16 and treated at [facility] and started on Eliquis. 7. Recent history of pneumonia right middle and lower lobes with initiation of antibiotic therapy and treatment at [facility] with completion of therapy with a followup chest x-ray being clear. 8. Electrolyte imbalance with hyponatremia, likely chronic. PLAN: The patient will likely be taken to surgery tomorrow for repair of the hip by Dr. Jefferson Wilson. She will be made NPO tonight at midnight. Today, she will be allowed p.o. fluids and diet and her p.o. medications. We will continue with Dilaudid as needed for pain management. Should she show any episodes of confusion or psychosis as the family says she probably will, we will certainly treat with Haldol as needed. In regards to the hyponatremia, we will continue with IV fluids to include normal saline. Right now, there are no potassium supplements being given. Unsure as to why she has continued to show rising potassium. We have also given her a touch of Lasix to assist with removing some of the free water load. Until surgery, we will continue to monitor the patient accordingly and after surgery, follow her medically. Until then, we will follow the patient along with Dr. Wilson and treat appropriately. #[id number] [facility]
[2016-12-04] MEDS ORDERED: HYDROmorphone HCL INJ 2 MG/ML VIAL ONE (09:04)
[2016-12-04] MEDS ORDERED: MIDAZOLAM INJ 5 MG/5 ML VIAL ONE (09:39)
[2016-12-04] MEDS ORDERED: SODIUM CHLORIDE 0.9% 250ML 250 ML ONE (09:49)
[2016-12-04] MEDS ORDERED: ELECTROLYTE-A 1,000 ML IVS ONE (10:36)
[2016-12-04] MEDS ORDERED: BUPIVACAINE 0.25% INJ 30 ML VIAL INJ ONE (10:57)
[2016-12-04] MEDS ORDERED: LEVALBUTEROL NEBS 1.25 MG/3 ML VIAL NEB ONE (11:37)
--- NOTE | 2016-12-04 11:56 | RAD ---
EXAM DESCRIPTION: Hip,Left 2 Views CLINICAL HISTORY: 80 years Female, Post-op COMPARISON: December 02, 2016 FINDINGS: Postoperative changes in the left hip are new from the prior exam. No hardware ossification is seen. There is near anatomic postreduction alignment of a known intertrochanteric left femoral fracture. Vascular calcifications are noted. There are mild degenerative changes in the left hip joint. IMPRESSION: Uncomplicated postoperative changes in the left hip. Electronically signed by: Noah Stiles MD 12/04/2016 11:56 AM CDT Workstation: [id number]
--- NOTE | 2016-12-04 11:57 | RAD ---
EXAM DESCRIPTION: Pelvis CLINICAL HISTORY: 80 years Female, Post-op COMPARISON: None. FINDINGS: Single AP view the pelvis shows postoperative changes in left hip without apparent hardware complication. There is near anatomic postreduction alignment of a known intertrochanteric left femoral fracture. No additional displaced pelvic fracture is seen. Vascular calcifications are noted. IMPRESSION: Uncomplicated postoperative changes in the left hip with near anatomic postreduction alignment of a known intertrochanteric left femoral fracture. Vascular calcifications. Electronically signed by: Noah Stiles MD 12/04/2016 11:57 AM CDT Workstation: [id number]
[2016-12-04] MEDS ORDERED: PROPOFOL 200 MG/20 ML VIAL IV ONE (12:00)
[2016-12-04] MEDS ORDERED: raNITIdine HCL INJ 25 MG/ML VIAL IV ONE (12:00)
[2016-12-04] MEDS ORDERED: DEXAMETHASONE INJ 10 MG/ML VIAL IV ONE (12:00)
[2016-12-04] MEDS ORDERED: LIDOCAINE 1% 10 ML VIAL INJ ONE (12:00)
[2016-12-04] MEDS ORDERED: ceFAZolin SODIUM 1 GM VIAL IVPB ONE (12:00)
[2016-12-04] MEDS ORDERED: METOCLOPRAMIDE HCL INJ 10 MG/2 ML VIAL IV ONE (12:00)
[2016-12-04] MEDS ORDERED: ePHEDrine SULF 50 MG/ML IV ONE (12:00)
[2016-12-04] MEDS: DONEPEZIL HCL 5 MG TAB PO SCH (12:13)
[2016-12-04] MEDS: LISINOPRIL 10 MG TAB PO SCH (12:13)
[2016-12-04] MEDS: amLODIPine BESYLATE 5 MG TAB PO SCH (12:13)
[2016-12-04] MEDS: guaiFENesin ER TAB 600 MG TAB PO SCH ×2 (12:13→20:29)
--- NOTE | 2016-12-04 13:10 | OP ---
DATE OF PROCEDURE: 12/04/16 PREOPERATIVE DIAGNOSIS: 1. Left intertrochanteric hip fracture. POSTOPERATIVE DIAGNOSIS: 1. Left intertrochanteric hip fracture. PROCEDURE: 1. Gamma nail, left hip. SURGEON: Jefferson Wilson MD. [employer] SAL[employer] SUPERVISOR: Mahesh Orourke CST, SA-C. ANESTHESIA: General. COMPLICATIONS: None. FINDINGS: Displaced fracture of the intertrochanteric region of the right hip. INDICATION: Ms. Vallejo has a history of fall on the day of presentation. Ms. Vallejo had the acute onset of pain at that time. She has pain only in the area of the hip without radiation or neurologic symptoms. Ms. Vallejo does suffer from a degree of dementia and, therefore, discussion was had with the family and her medical power of criminal attorney regarding options. After discussing the risks, benefits and alternatives to operative therapy, informed consent was obtained for Gamma nailing. PROCEDURE: The patient was brought to the Operating Room and placed in the supine position. General anesthesia was administered and the patient was placed on the fracture table. The fracture was provisionally reduced under fluoroscopic imaging and after reduction, the leg and hemipelvis were sterilely prepped and draped. An incision was made just proximal to the greater trochanter and dissection was carried through the iliotibial band and down to the greater trochanter. A starting pin was placed and a one-step reamer was used to open the femoral canal. A 125 degree angled Gamma nail was inserted into the canal to the appropriate level. A guide pin was placed from the lateral cortex into the femoral head. The appropriate length compression screw was measured and inserted with the placement guided under direct imaging. Following that, the distal locking screw was drilled, measured, and placed under imaging. The proximal locking screw was placed through the outrigger into the top of the nail and the outrigger removed. The final construct was imaged and the wounds were thoroughly irrigated, followed by closure with Monocryl suture. Sterile dressings were placed. The patient was awoken from anesthesia and taken to the Recovery Room. POSTOPERATIVE INSTRUCTIONS: She will be postoperative weight-bearing on postoperative day 1. #[id number] [facility]
[2016-12-04] MEDS ORDERED: hydrOXYzine HCl 25 MG TAB PO PRN (15:16)
[2016-12-04] MEDS: APIXABAN 2.5 MG TAB PO SCH (20:28)
[2016-12-04] MEDS: QUEtiapine FUMARATE 25 MG TAB PO SCH (20:28)
[2016-12-04] MEDS: NICOTINE PATCH 21 MG TD SCH (20:28)
[2016-12-04] MEDS ORDERED: QUEtiapine FUMARATE 25 MG TAB PO SCH (21:00)
--- NOTE | 2016-12-04 21:05 | PN ---
DATE: 12/04/16 SUPERVISING PHYSICIAN: Jonathan Cardona M.D. SUBJECTIVE: The patient was taken to the O.R. today for a left intertrochanteric hip fracture repair with a gamma nail performed by Dr. Jefferson Wilson. The patient was seen postoperatively. She was in stable condition and comfortable. OBJECTIVE: VITAL SIGNS: Temperature 98.0, pulse 99, blood pressure 119/70, respirations 20, satting 100% on nasal cannula at rest. I's and O's show a positive balance of 2381 with 2581 in, 200 out. Weight 64.8 kg. CHEST: Lungs are clear to auscultation bilaterally. HEART: Regular rate and rhythm. ABDOMEN : Soft, non-tender. Positive bowel sounds. EXTREMITIES: Left hip has dressing in place that is clean and dry. Pulses distally are strong. There is no clubbing, cyanosis or edema. NEUROLOGIC: She is responding. Answers yes or no questions but remains only oriented to self and family, but is much less confused than previous days. LABORATORY: Lab this morning showed potassium 4.8, sodium had improved to 130, BUN 10, creatinine 0.79, serum osmolality is up to 259. RADIOLOGY: No additional radiographic studies were performed on the Medical/ Surgical floor prior to surgery. Postoperatively, she had a hip x-ray and a pelvis x-ray that showed uncomplicated postoperative changes of the left hip. Pelvis x-ray per radiology interpretation showed near anatomic post reduction alignment of known intertrochanteric left hip fracture. Please refer to those results for final description. ASSESSMENT: 1. Acute intertrochanteric fracture of the left hip status post same level fall requiring surgical intervention with a gamma nail performed by Dr. Jefferson Wilson on 12/04/16, postoperative day zero with the patient being on Eliquis prior secondary to pulmonary embolism. 2. History of hypertension. 3. Chronic obstructive pulmonary disease in a chronic smoker having been recently treated for pneumonia at [facility]. 4. 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 5. Chronic tobacco abuse since age 17. 6. History of pulmonary embolism diagnosed 11/11/16 treated at [facility] and started on Eliquis which was held for 24 hours prior to repair of the hip to be resumed as per protocol. 7. Recent history of pneumonia right middle and lower lobes with initiation of antibiotic therapy and treatment at [facility] with completion of therapy with followup chest x-ray being clear. 8. Electrolyte imbalance on admission with hyponatremia likely chronic showing improvement after IV fluids. 9. Previous right ankle fracture followed by Dr. Jefferson Wilson currently partial weightbearing with a boot. PLAN: Will continue to monitor the patient medically as she recovers and continues through her rehabilitation efforts postoperatively under the guidance of Dr. Jefferson Wilson and Physical Therapy. She has been having some Sundowners and some confusion. She has gotten several doses of Haldol. Will try some Seroquel tonight and see if this will assist with the patient having less agitation. Her pain is being well controlled with Dilaudid and will continue with this plan at this point. She is on postoperative day zero. Darren has been resumed tonight as previous to surgery. Will continue with aggressive pulmonary hygiene as she is a chronic smoker and encourage deep breathing exercises to prevent any complications postoperatively. Her family is very attentive and very cooperative in assisting with keeping the patient calm. She will resume her physical therapy tomorrow. Until discharge, will continue to monitor and treat the patient appropriately. #[id number] [facility]
[2016-12-05] MEDS: HYDROmorphone HCL INJ 2 MG/ML VIAL IV PRN ×3 (02:23→11:24)
[2016-12-05] MEDS ORDERED: HYDROmorphone HCL INJ 2 MG/ML VIAL IV ONE (05:12)
[2016-12-05] MEDS: SODIUM CHLORIDE 0.9% (FLUSH) 10 ML SYG IV PRN (07:49)
[2016-12-05] MEDS: ALBUTEROL SULFATE 2.5 MG/3 ML VIAL NEB SCH ×4 (08:25→20:44)
[2016-12-05] MEDS: FLUTICASONE/SALMETEROL 250/50 14 PUFF/17 GM INH INH SCH ×3 (08:25→20:59)
[2016-12-05] MEDS: TIOTROPIUM INHALER INH SCH (08:25)
[2016-12-05] MEDS: guaiFENesin ER TAB 600 MG TAB PO SCH ×2 (09:25→20:21)
[2016-12-05] MEDS: amLODIPine BESYLATE 5 MG TAB PO SCH (09:25)
[2016-12-05] MEDS: DONEPEZIL HCL 5 MG TAB PO SCH (09:26)
[2016-12-05] MEDS: APIXABAN 2.5 MG TAB PO SCH ×2 (09:26→20:21)
[2016-12-05] MEDS: LISINOPRIL 10 MG TAB PO SCH (09:26)
[2016-12-05] MEDS: SODIUM CHLORIDE 0.9% 1000ML 1,000 ML IVS PRN (11:21)
[2016-12-05] MEDS ORDERED: HALOPERIDOL LACTATE INJ 5 MG/ML VIAL IM ONE ×2 (13:53→13:55)
[2016-12-05] MEDS ORDERED: diphenhydrAMINE HCL 50 MG/ML VIAL IM ONE (13:55)
[2016-12-05] MEDS ORDERED: HYDROmorphone HCL INJ 2 MG/ML VIAL IM ONE (15:31)
[2016-12-05] MEDS: NICOTINE PATCH 21 MG TD SCH (20:21)
[2016-12-05] MEDS: QUEtiapine FUMARATE 25 MG TAB PO SCH (20:21)
[2016-12-05] MEDS: HYDROmorphone HCL INJ 2 MG/ML VIAL IM PRN (20:30)
--- NOTE | 2016-12-05 20:47 | PN ---
DATE: 12/05/16 SUPERVISING PHYSICIAN: Jonathan Cardona M.D. SUBJECTIVE: The patient is sitting in her hospital bed. She is very combative at this time. She is yelling and screaming at the nurses. She is also throwing objects. She is very confused at this time. She has pulled out her IVs as well as pulling on her catheter. Her family is at the bedside. OBJECTIVE: VITAL SIGNS: She is afebrile. Heart rate 80, blood pressure 105/66 , respiratory rate 20, O2 sat is 93% on room air. RESPIRATORY: Essentially clear to auscultation bilaterally. CARDIAC: Regular rate and rhythm. ABDOMEN: Soft, nondistended, non-tender. Bowel sounds are positive. NEUROLOGIC: She is confused. She is combative. EXTREMITIES: Bilateral pedal pulses are palpable at +1. Dressing to her left lateral hip is dry and intact. LABORATORY: WBCs are 8.4, hemoglobin 8.8 and 26.8, platelets 170. Sodium 134, potassium 4.4, chloride 107, carbon dioxide 22, BUN 8, creatinine 0.61, serum osmolality 266. All other labs and films have been reviewed via the EMR. ASSESSMENT: 1. Acute intertrochanteric fracture of the left hip status post surgical intervention with gamma nail performed by Dr. Jefferson Wilson on 12/04/16, postoperative day 1. 2. History of hypertension. 3. Chronic obstructive pulmonary disease in a chronic smoker. 4. 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 5. Chronic tobacco abuse since age 17. 6. History of pulmonary embolism diagnosed 11/11/16 treated at [facility] and presently on Eliquis that has recently been resumed postoperatively. 7. Recent history of pneumonia that was treated at [facility]. 8. Electrolyte imbalance that continues with mild hyponatremia. 9. Previous right ankle fracture being followed by Dr. Jefferson Wilson currently partial weightbearing with a boot. PLAN: We will continue present supportive care. Will hold off on labs for tomorrow. At this point, we will try to get her calmed down. I have given her some Haldol, Benadryl and Ativan. She may need scheduled dosing of that for at least a day or 2. In the past, she has responded well to the Haldol and Benadryl, but was not sufficient enough in keeping her calm, so we may have to add just a little bit of Ativan, but will see how she responds to this current medication regimen and order appropriately. Otherwise we will continue to monitor her closely and followup as needed. Dr. Cardona is the collaborating physician available for consultation. #[id number] [facility]
[2016-12-05] MEDS ORDERED: diphenhydrAMINE HCL 50 MG/ML VIAL IV SCH (22:00)
[2016-12-05] MEDS ORDERED: HALOPERIDOL LACTATE INJ 5 MG/ML VIAL IM SCH (22:00)
[2016-12-06] MEDS: IV SET AND CAP CHANGE INJ INJ SCH (03:07)
[2016-12-06] MEDS: HALOPERIDOL LACTATE INJ 5 MG/ML VIAL IM SCH ×3 (03:07→18:33)
[2016-12-06] MEDS: diphenhydrAMINE HCL 50 MG/ML VIAL IV SCH ×3 (03:10→18:34)
[2016-12-06] MEDS: SODIUM CHLORIDE 0.9% 1000ML 1,000 ML IVS PRN ×2 (05:14→12:26)
[2016-12-06] MEDS: HYDROmorphone HCL INJ 2 MG/ML VIAL IV PRN ×3 (05:22→21:52)
--- NOTE | 2016-12-06 07:54 | CONS ---
CHIEF COMPLAINT: Left hip pain. HISTORY OF PRESENT ILLNESS: Ms. Vallejo is an 80-year-old female with a history of a fall on the day of presentation. She had the acute onset of pain. She was taken to the Emergency Room and x-rays revealed a fracture of the left hip. She had no other injury associated with this fall, denies any radiation of pain, and denies any neurologic symptoms. PAST MEDICAL HISTORY: 1. Hypertension. 2. Chronic obstructive pulmonary disease. 3. Dementia. 4. Anxiety. 5. Tobacco use. PAST SURGICAL HISTORY: 1. Appendectomy. 2. Hysterectomy. 3. Tubal ligation. 4. Left knee surgery. 5. Bilateral cataract removal. MEDICATIONS: 1. Benadryl. 2. Motrin. 3. Mucinex. 4. Eliquis. 5. Butalbital. 6. Advair. 7. Klonopin. 8. Lisinopril. 9. Aricept. 10. Norvasc. 11. Spiriva. 12. ProAir. ALLERGIES: NO KNOWN DRUG ALLERGIES. SOCIAL HISTORY: The patient does not drink or use any illicit drugs. She does smoke. FAMILY HISTORY: None pertinent to today's complaint. REVIEW OF SYSTEMS: Negative except as indicated in the History of Present Illness. PHYSICAL EXAMINATION: VITAL SIGNS: Blood pressure 155/77. Pulse 77. Respirations 20. O2 saturation 95%. Weight 64 kg. MENTAL STATUS: Much of the history above has been gained from family and previous medical records secondary to the patient's dementia. SKIN: Normal tone and turgor. HEENT: Normocephalic, atraumatic. Pupils equal, round and reactive. Mucosal membranes are moist. NECK: Normal range of motion. No thyromegaly, no lymphadenopathy. CHEST: Normal respiratory excursion. CARDIAC: Regular rate and rhythm. No murmurs, rubs or gallops. MUSCULOSKELETAL: Bilateral upper extremities show no significant pain with range of motion. Sensation is intact in the extremities. They are warm and well perfused. There is no deformity or evidence of trauma. The right lower extremity shows no significant pain with range of motion. She has intact sensation. It is warm and well perfused. There is no deformity. The left lower extremity is difficult to do any range of motion on secondary to severe pain of the hip. There is no significant deformity. It is warm and well perfused. Sensation is intact. IMAGING: X-rays show an intertrochanteric fracture of the hip. ASSESSMENT: 1. Intertrochanteric fracture. PLAN: The plan at this point is for Gamma nailing. Due to the dementia of the patient, informed consent as been obtained from the family after appropriate discussion of the risks, benefits and alternatives to operative therapy. The plan at this point is to proceed with Gamma nailing and she has been cleared from the medical standpoint by our hospitalist team. #[id number] [facility]
--- NOTE | 2016-12-06 08:08 | PN ---
DATE: 12/04/16 POSTOPERATIVE NOTE SUBJECTIVE: She is doing well. She is resting and does not appear to be in any significant discomfort. OBJECTIVE: Afebrile. Vital signs stable. Dressing is clean, dry and intact. ASSESSMENT: Status post Gamma nail. PLAN: At this point, she is going to begin partial weight-bearing on postoperative day 1. I will progress that as her mental status allows. #[id number] [facility]
--- NOTE | 2016-12-06 08:10 | PN ---
DATE: 12/05/16 SUBJECTIVE: From a mental standpoint, Ms. Vallejo is actually much improved today. She continues to be slightly confused, but actually is better and closer to her baseline. OBJECTIVE: Afebrile. Vital signs stable. Dressing is clean, dry and intact. ASSESSMENT: Status post Gamma nail. PLAN: The plan at this point is for her to begin physical therapy. We will progress as her mental status allows and healing allows. #[id number] [facility]
[2016-12-06] MEDS: TIOTROPIUM INHALER INH SCH (08:45)
[2016-12-06] MEDS: ALBUTEROL SULFATE 2.5 MG/3 ML VIAL NEB SCH ×2 (08:45→20:11)
[2016-12-06] MEDS: FLUTICASONE/SALMETEROL 250/50 14 PUFF/17 GM INH INH SCH ×2 (08:45→20:11)
[2016-12-06] MEDS: amLODIPine BESYLATE 5 MG TAB PO SCH (09:29)
[2016-12-06] MEDS: APIXABAN 2.5 MG TAB PO SCH ×2 (09:30→21:01)
[2016-12-06] MEDS: DONEPEZIL HCL 5 MG TAB PO SCH (09:30)
[2016-12-06] MEDS: LISINOPRIL 10 MG TAB PO SCH (09:31)
[2016-12-06] MEDS: guaiFENesin ER TAB 600 MG TAB PO SCH ×2 (09:31→21:01)
[2016-12-06] MEDS ORDERED: MAGNESIUM HYDROXIDE 30 ML UD PO ONE (11:20)
[2016-12-06] MEDS ORDERED: MAGNESIUM HYDROXIDE 30 ML UD ONE (11:27)
[2016-12-06] MEDS ORDERED: MAGNESIUM SULFATE PREMIX 2GM 2 GM in PREMIX BAG 1 BAG IVPB ONE (15:00)
[2016-12-06] MEDS ORDERED: DEX 5% W/NACL 0.9% 1000ML 1,000 ML IVS PRN (15:01)
[2016-12-06] MEDS ORDERED: MAGNESIUM SULFATE PREMIX 2GM 0 ML IVPB ONE (15:59)
[2016-12-06] MEDS ORDERED: MAGNESIUM SULFATE PREMIX 2GM 50 ML IVPB ONE (16:01)
--- NOTE | 2016-12-06 17:36 | PN ---
DATE: 12/06/16 SUPERVISING PHYSICIAN: Mauricio Phipps M.D. SUBJECTIVE: The patient is sitting in the chair in her room. She is much calmer today than she was yesterday. She denies any shortness of breath, chest pain or nausea. Her family member is at her side and says she has not eaten very much, but she has been much calmer today and she has participated in her physical therapy as far as transferring from the bed to the chair, but that is about it. OBJECTIVE: VITAL SIGNS: She is afebrile, heart rate 104, blood pressure 100/62 , respiratory rate 18, O2 sat 90% on room air. RESPIRATORY: Somewhat diminished at the bases but otherwise clear to auscultation. CARDIAC: Regular rate and rhythm. ABDOMEN: Soft, nondistended, non-tender. Bowel sounds are positive. EXTREMITIES: Bilateral pedal pulses are palpable at +1. NEUROLOGIC : She is awake. She is alert but oriented only to person. ASSESSMENT: 1. Acute intertrochanteric fracture of the left hip status post surgical intervention with gamma nail performed by Dr. Jefferson Wilson on 12/04/16. She is postoperative day 2. 2. Hypertension. 3. Chronic obstructive pulmonary disease. 4. 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 5. Chronic tobacco abuse since age 17. 6. History of pulmonary embolism diagnosed on 11/11/16 treated at [facility] and started on Eliquis which was restarted yesterday. 7. Recent history of right middle and lower lobe pneumonia with completion of antibiotic therapy at [facility]. 8. Electrolyte imbalance with hyponatremia that has improved. 9. Previous right ankle fracture followed by Dr. Jefferson Wilson, currently partial weightbearing with a boot. PLAN: We will continue present supportive care. I have discontinued her Ativan from her Haldol, Benadryl, Ativan dosing that she had gotten started yesterday. Her last dose of Haldol and Benadryl will be tomorrow morning at 11: 00. I have increased her Seroquel to 25 mg b.i.d. Hopefully that will help, although it may need to be increased. There are discussions with Luz Marina Lebron, our Case Management Assistant, about discharge and the family will talk to her tomorrow at which time they may be sending [place] [facility]. The other option is she may be going home with 24 hour care. I have encouraged good pulmonary hygiene and I have added percussion to her regimen. I have ordered routine lab for in the morning. She will continue strengthening and conditioning with Physical Therapy. We will continue to monitor the patient closely and followup as needed. #[id number] [facility]
[2016-12-06] MEDS: NICOTINE PATCH 21 MG TD SCH (21:01)
[2016-12-06] MEDS: QUEtiapine FUMARATE 25 MG TAB PO SCH (21:01)
[2016-12-07] MEDS: HALOPERIDOL LACTATE INJ 5 MG/ML VIAL IM SCH ×2 (03:17→11:52)
[2016-12-07] MEDS: diphenhydrAMINE HCL 50 MG/ML VIAL IV SCH ×2 (03:18→11:51)
--- NOTE | 2016-12-07 07:56 | PN ---
DATE: 12/07/16 SUBJECTIVE: Ms. Vallejo this morning is doing okay. She is at about her baseline status as far as her mental changes. OBJECTIVE: Afebrile. Vital signs stable. Wounds are clean. There are no signs or symptoms of infection. ASSESSMENT: Status post Gamma nail. PLAN: At this point, the plan is to continue with her therapy as she is able to participate. #[id number] [facility]
[2016-12-07] MEDS: FLUTICASONE/SALMETEROL 250/50 14 PUFF/17 GM INH INH SCH ×2 (08:28→20:00)
[2016-12-07] MEDS: TIOTROPIUM INHALER INH SCH (08:28)
[2016-12-07] MEDS: ALBUTEROL SULFATE 2.5 MG/3 ML VIAL NEB SCH ×4 (08:28→19:50)
[2016-12-07] MEDS: DONEPEZIL HCL 5 MG TAB PO SCH (09:20)
[2016-12-07] MEDS: QUEtiapine FUMARATE 25 MG TAB PO SCH ×2 (09:21→20:54)
[2016-12-07] MEDS: amLODIPine BESYLATE 5 MG TAB PO SCH ×2 (09:21→11:18)
[2016-12-07] MEDS: APIXABAN 2.5 MG TAB PO SCH ×2 (09:21→20:54)
[2016-12-07] MEDS: guaiFENesin ER TAB 600 MG TAB PO SCH ×2 (09:21→20:54)
[2016-12-07] MEDS ORDERED: SODIUM CHLORIDE 0.9% 500ML 500 ML IVS ONE (10:57)
[2016-12-07] MEDS: LISINOPRIL 10 MG TAB PO SCH (11:16)
--- NOTE | 2016-12-07 13:59 | PN ---
SUPERVISING PHYSICIAN: Jonathan Cardona MD DATE: 12/07/16 SUBJECTIVE: The patient continues to progress slowly, but is doing well. She remains afebrile. She is finishing up her last dose of Ativan Haldol today and continues on Seroquel. She has been noncombative and fairly cooperative. OBJECTIVE: VITAL SIGNS: Temperature 97.3. Pulse 89. Blood pressure 90/61. Respirations 20. O2 saturation 94% on room air. I&Os show negative balance of 1375 with 1625 in and 3027 out. Weight 71.8 kg. CHEST: Lungs clear to auscultation bilaterally. HEART: Regular rate and rhythm. ABDOMEN: Soft, nontender. Positive bowel sounds. EXTREMITIES: Left hip has bandage in place that is clean and dry with no obvious infection or drainage. Pulses distally are 1+. NEUROLOGIC: Alert and awake, oriented only to herself and family members at times. LABORATORY: White count 6.4, hemoglobin 8.2, hematocrit 24.8, platelet count 204,000, differential without left shift. Chemistries show normal sodium 137, potassium slightly low at 3.3 with BUN 8, creatinine 0.48, glucose 121, calcium 9.7. MICROBIOLOGY: Urine culture showed no growth at 48 yours. Blood cultures remain negative at 24 hours. ASSESSMENT: 1. Acute intertrochanteric fracture of the left hip status post surgical intervention with Gamma nail performed by Dr. Jefferson Wilson on 12/04/16. She is postoperative day 3 . 2. Hypertension. 3. Chronic obstructive pulmonary disease, stable. 4. 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 5. Chronic tobacco abuse since age 17, on nicotine patch. 6. History of pulmonary embolism diagnosed on 11/11/16 treated at [facility] and started on Eliquis, which was restarted yesterday. 7. Recent history of right middle and lower lobe pneumonia with completion of antibiotic therapy at [facility]. 8. Electrolyte imbalance with hyponatremia, now resolved. 9. Previous right ankle fracture followed by Dr. Jefferson Wilson, currently partial weightbearing with a boot. PLAN: We will continue to follow the patient as she progresses through her physical therapy efforts. Her last dose of Haldol is today. She has been on Seroquel now for 2 days at 25 mg b.i.d. which seems to be helping. Discussion about discharge planning continues. At this point, it sounds like the family is opting to possibly take the patient home with 24 hour care and physical therapy at home. We will continue to encourage good pulmonary hygiene and help the patient remain oriented as possible pending aggressive behavior. She will continue with percussion on her bronchial hygiene. We will continue to monitor the patient as needed until discharge. #[id number] [facility]
[2016-12-07] MEDS: HYDROmorphone HCL INJ 2 MG/ML VIAL IV PRN (17:23)
[2016-12-07] MEDS: NICOTINE PATCH 21 MG TD SCH (20:54)
[2016-12-08] MEDS ORDERED: FUROSEMIDE INJ 40 MG/4 ML VIAL IV ONE (06:39)
[2016-12-08] MEDS ORDERED: diphenhydrAMINE HCL 50 MG/ML VIAL IV ONE (06:39)
[2016-12-08] MEDS ORDERED: ACETAMINOPHEN 325 MG TAB PO ONE (06:39)
[2016-12-08] MEDS ORDERED: SODIUM CHLORIDE 0.9% 500ML 500 ML IVS SCH (07:00)
[2016-12-08] MEDS: POTASSIUM CHLORIDE 20 MEQ TAB PO SCH (08:18)
[2016-12-08] MEDS: FLUTICASONE/SALMETEROL 250/50 14 PUFF/17 GM INH INH SCH ×2 (08:27→20:27)
[2016-12-08] MEDS: TIOTROPIUM INHALER INH SCH (08:27)
[2016-12-08] MEDS: ALBUTEROL SULFATE 2.5 MG/3 ML VIAL NEB SCH ×4 (08:27→20:27)
[2016-12-08] MEDS: DONEPEZIL HCL 5 MG TAB PO SCH (10:01)
[2016-12-08] MEDS: amLODIPine BESYLATE 5 MG TAB PO SCH (10:02)
[2016-12-08] MEDS: LISINOPRIL 10 MG TAB PO SCH (10:02)
[2016-12-08] MEDS: PANTOPRAZOLE SODIUM IV 40 MG VIAL IV SCH (10:03)
[2016-12-08] MEDS: guaiFENesin ER TAB 600 MG TAB PO SCH ×2 (10:03→20:16)
[2016-12-08] MEDS: QUEtiapine FUMARATE 25 MG TAB PO SCH ×2 (10:05→20:17)
--- NOTE | 2016-12-08 13:53 | PN ---
SUPERVISING PHYSICIAN: Jonathan Cardona MD DATE: 12/08/16 SUBJECTIVE: The patient is doing much better today. She is interactive. She has been awake and cooperative. She has had no further outbursts of agitation. She remains afebrile. She did show a low hemoglobin and hematocrit this morning, but has not had any nausea, vomiting, diarrhea or any other signs of blood loss. OBJECTIVE: VITAL SIGNS: Temperature 97.6. Pulse 82. Blood pressure 137/72. Respirations 18. Saturation 98% on nasal cannula at 3 liters. I&Os show negative balance of 730 with 1195 in, 1925 out. She has had one bowel movement. Weight 71.6 kg. CHEST: Lungs clear to auscultation with no obvious wheezing although diminished towards the bases. HEART: Regular rate and rhythm. ABDOMEN: Soft, nontender. Positive bowel sounds. EXTREMITIES: No cyanosis, clubbing. There is just a trace amount of edema bilaterally. Left hip has bandages in place, clean and dry. No signs of infection. Distal pulses are strong. NEUROLOGIC: She is alert to herself, her family members, but not to location. She is very cooperative compared to previous days. LABORATORY: Hemoglobin and hematocrit did drop compared to previous days, which has slowly been showing a decrease and is down hemoglobin 7.5 and hematocrit 22.6 today. Chemistries show low potassium at 3.1, but all other electrolytes are within normal limits. BUN 8, creatinine less than 0.4, serum osmolality 277, calcium 9.9. Repeat urinalysis due to hematuria showed greater than 300 protein with 15 ketones, large amount of blood with large bilirubin 2.0 urobilinogen with large leukocyte esterase. Microscopic reveals too numerous to count RBCs with greater than 50 WBCs, epithelials were skewed by RBCs as well as bacteria. MICROBIOLOGY: Urine culture at 48 hours showed no growth. Blood culture times 2 showed no growth at 48 hours. Additional urine culture today is pending. ASSESSMENT: 1. Acute intertrochanteric fracture of the left hip status post surgical intervention with Gamma nail performed by Dr. Jefferson Wilson on 12/04/16. She is postoperative day 4. 2. Hypertension, stable. 3. Chronic obstructive pulmonary disease, stable. 4. 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 5. Chronic tobacco abuse since age 17, currently on nicotine patch. 6. History of pulmonary embolism diagnosed on 11/11/16 treated at [facility] and started on Eliquis, which was resumed on postoperative day 1. 7. Recent history of right middle and lower lobe pneumonia with completion of antibiotic therapy at [facility], now resolved. 8. Electrolyte imbalance with hyponatremia, resolved, now with a mild hypokalemia. 9. Previous right ankle fracture followed by Dr. Jefferson Wilson, currently partial weightbearing with a boot. 10. Anemia with a hypochromic/normocytic red blood cell presentation in a patient with a recent hip surgery on Eliquis without any obvious etiology of blood loss, felt to be secondary to previous surgical procedure and a poor physiological reserve with the patient being hemodynamically stable. PLAN: We will continue to follow as she progresses through her physical therapy efforts. Given that her hemoglobin and hematocrit dropped in the last 4 hours, we will give her 2 units of packed red blood cells and order occult bloods as well as any stool studies as needed. We will give her 40 mg of Lasix after the second unit of blood and recheck hemoglobin and hematocrit in the morning. I did hold her Eliquis this morning, but given that there are no obvious signs of acute loss, the Eliquis has been resumed given her history of recent pulmonary embolism and past surgical history. We will anticipate hopefully going to Swing Bed either Sunday or Sunday, depending on how well the patient stabilizes in regards to her hemoglobin and hematocrit. Until then , we will continue to monitor the patient closely and treat appropriately. #[id number] [facility]
[2016-12-08] MEDS ORDERED: SODIUM CHL 0.9% 50ML MIN-BAG+ 50 ML IVPB ONE ×2 (17:23→19:47)
[2016-12-08] MEDS ORDERED: cefTRIAXone SODIUM 1 GM VIAL ONE ×2 (17:24→19:47)
[2016-12-08] MEDS: cefTRIAXone SODIUM 1 GM in SODIUM CHL 0.9% 50ML MIN-BAG+ 50 ML IVPB SCH ×2 (17:26→22:08)
[2016-12-08] MEDS ORDERED: APIXABAN 2.5 MG TAB PO ONE (19:46)
[2016-12-08] MEDS: NICOTINE PATCH 21 MG TD SCH (20:16)
[2016-12-08] MEDS: SODIUM CHLORIDE 0.9% (FLUSH) 10 ML SYG IV SCH (20:17)
[2016-12-08] MEDS: HYDROmorphone HCL INJ 2 MG/ML VIAL IV PRN (20:19)
[2016-12-08] MEDS: APIXABAN 2.5 MG TAB PO SCH (20:26)
[2016-12-08] MEDS: diphenhydrAMINE HCL 50 MG/ML VIAL IV PRN (22:09)
[2016-12-08] MEDS: SODIUM CHLORIDE 0.9% (FLUSH) 10 ML SYG IV PRN (22:10)
[2016-12-09] MEDS: IV SET AND CAP CHANGE INJ INJ SCH (02:56)
[2016-12-09] MEDS ORDERED: HYDROcodone 7.5MG/APAP 325MG 1 EA TAB ONE (07:51)
[2016-12-09] MEDS ORDERED: APIXABAN 2.5 MG TAB PO ONE ×3 (07:57→20:09)
[2016-12-09] MEDS: POTASSIUM CHLORIDE 20 MEQ TAB PO SCH (08:20)
[2016-12-09] MEDS: TIOTROPIUM INHALER INH SCH (08:26)
[2016-12-09] MEDS: FLUTICASONE/SALMETEROL 250/50 14 PUFF/17 GM INH INH SCH ×2 (08:26→20:31)
[2016-12-09] MEDS: ALBUTEROL SULFATE 2.5 MG/3 ML VIAL NEB SCH ×4 (08:26→20:30)
[2016-12-09] MEDS: amLODIPine BESYLATE 5 MG TAB PO SCH (08:52)
[2016-12-09] MEDS: LISINOPRIL 10 MG TAB PO SCH (08:53)
[2016-12-09] MEDS: DONEPEZIL HCL 5 MG TAB PO SCH (08:53)
[2016-12-09] MEDS: guaiFENesin ER TAB 600 MG TAB PO SCH ×2 (08:53→20:07)
[2016-12-09] MEDS: APIXABAN 2.5 MG TAB PO SCH ×2 (09:00→20:07)
[2016-12-09] MEDS: PANTOPRAZOLE SODIUM IV 40 MG VIAL IV SCH (09:02)
[2016-12-09] MEDS: QUEtiapine FUMARATE 25 MG TAB PO SCH ×2 (09:03→20:07)
[2016-12-09] MEDS: SODIUM CHLORIDE 0.9% (FLUSH) 10 ML SYG IV SCH ×2 (09:30→20:08)
[2016-12-09] MEDS ORDERED: cefTRIAXone SODIUM 1 GM VIAL ONE ×2 (10:37→19:14)
[2016-12-09] MEDS ORDERED: SODIUM CHL 0.9% 50ML MIN-BAG+ 50 ML IVPB ONE ×2 (10:37→19:13)
[2016-12-09] MEDS: cefTRIAXone SODIUM 1 GM in SODIUM CHL 0.9% 50ML MIN-BAG+ 50 ML IVPB SCH ×2 (10:43→22:44)
--- NOTE | 2016-12-09 14:14 | PN ---
DATE: 12/08/16 SUBJECTIVE: She is doing well and her mental status continues to improve. OBJECTIVE: She is afebrile. Vital signs are stable. Wounds are clean. There are no signs or symptoms of infection. ASSESSMENT: 1. Status post gamma nail. PLAN: The plan at this point is for continued physical therapy. #[id number] [facility]
--- NOTE | 2016-12-09 14:30 | PN ---
DATE: 12/09/16 SUBJECTIVE: Ms. Vallejo is much improved and her mental status is significantly better. OBJECTIVE: She is afebrile. Vital signs are stable. Wounds are clean. There are no signs or symptoms of infection. ASSESSMENT: 1. Status post gamma nail. PLAN: The plan at this point is for continued partial weightbearing. Will advance as healing and comfort allows. #[id number] [facility]
[2016-12-09] MEDS ORDERED: HYDROcodone 5MG/APAP 325MG 1 EA TAB PO PRN (15:02)
[2016-12-09] MEDS ORDERED: FUROSEMIDE 40 MG TAB ONE (15:44)
[2016-12-09] MEDS ORDERED: POTASSIUM CHLORIDE 10 MEQ TAB PO SCH (17:00)
[2016-12-09] MEDS: FUROSEMIDE 40 MG TAB PO SCH (17:00)
--- NOTE | 2016-12-09 17:14 | PN ---
DATE: 12/09/16 SUBJECTIVE: The patient is resting in the bed attempting to ambulate a little bit with Physical Therapy's input and being subsequently very tired. Her hemoglobin yesterday was very low being at 7.5 and required 2 units of packed red blood cells. This in attempt to allow her blood to be approachable to a physiologic level so that she could participate in her rehab program. Appetite is fair. Family is very helpful in assisting in her ongoing observation and care, and plans are being made with Social Service intervention to assist with eventual discharge planning. OBJECTIVE: Afebrile, pulse 88, blood pressure 132/82, pulse oximetry 91% on room air. Weight is 70.3 kilos. GENERAL: The patient is resting at the present time. No complaint of abdominal pain. She did have a bowel movement earlier today. Her mental outlook is still quite confused though she is able to recognize family members and this is an encouragement to them. Appetite is fair. LABORATORY: Hemoglobin is up to 10.7 after 2 units of packed red blood cells with a normocytic normochromic presentation and neutrophils of 56%, white count 6,200. Chemistries showed potassium 3.3 requiring supplementation while BUN is 9, creatinine 0.49, calcium elevated at 10.3 with albumin 2.5. Urinalysis yesterday did show hematuria as well as pyuria and proteinuria and ketonuria. Stool guaiac yesterday was negative with other studies pending. Urine culture is negative obtained yesterday but apparently she has already been on antibiotics which will be continued to more adequately treat a potential underlying urinary tract infection. ASSESSMENT: 1. Postoperative day number 5 gamma nail placement for an acute intertrochanteric fracture of the left hip performed by Dr. Jefferson Wilson on 12/04/16. 2. Significant postoperative anemia probably secondary to the femoral fracture requiring 2 units of red blood cells with reevaluation overnight to see if she will require more before being placed on Swing Bed rehab status. 3. Hypertension, stable. 4. Chronic obstructive pulmonary disease, stable. 5. History of dementia with psychosis on Seroquel currently stable. 6. Chronic tobacco abuse currently on a nicotine patch. 7. History of recent acute pulmonary embolism diagnosed at [facility] on 11/11/16 having been on Eliquis which is now resumed postoperatively. 8. Recent history of right middle and lower lobe pneumonia with having completed a course of therapy at [facility]. 9. Hyponatremia and mild hypokalemia with supplement continued. 10. Recent history of right ankle fracture treated by Dr. Wilson with partial weightbearing with a support boot. PLAN: Recheck CBC and BMP in the morning. Check stools for occult bleeding. Reevaluate Travis use for in the morning. Potassium supplementation. Continue treatment for the urinary tract infection with parenteral antibiotics and reevaluate in the morning at which time, if stable, consider Swing Bed rehabilitation status to continue with rehab supervised by Physical Therapy and Orthopedic Surgery. #[id number] [facility]
[2016-12-09] MEDS ORDERED: PANTOPRAZOLE SODIUM TAB 40 MG PO ONE (19:14)
[2016-12-09] MEDS: NICOTINE PATCH 21 MG TD SCH (20:07)
[2016-12-09] MEDS: HYDROmorphone HCL INJ 2 MG/ML VIAL IM PRN (21:27)
[2016-12-10] MEDS: diphenhydrAMINE HCL 50 MG/ML VIAL IV PRN ×2 (00:31→09:21)
[2016-12-10] MEDS ORDERED: PANTOPRAZOLE SODIUM TAB 40 MG PO SCH (06:30)
[2016-12-10] MEDS: POTASSIUM CHLORIDE 20 MEQ TAB PO SCH (08:02)
[2016-12-10] MEDS: TIOTROPIUM INHALER INH SCH (08:53)
[2016-12-10] MEDS: FLUTICASONE/SALMETEROL 250/50 14 PUFF/17 GM INH INH SCH (08:53)
[2016-12-10] MEDS: ALBUTEROL SULFATE 2.5 MG/3 ML VIAL NEB SCH ×3 (08:53→15:48)
[2016-12-10] MEDS: DONEPEZIL HCL 5 MG TAB PO SCH (09:07)
[2016-12-10] MEDS: QUEtiapine FUMARATE 25 MG TAB PO SCH (09:07)
[2016-12-10] MEDS: FUROSEMIDE 40 MG TAB PO SCH (09:08)
[2016-12-10] MEDS: guaiFENesin ER TAB 600 MG TAB PO SCH (09:08)
[2016-12-10] MEDS: amLODIPine BESYLATE 5 MG TAB PO SCH (09:08)
[2016-12-10] MEDS: LISINOPRIL 10 MG TAB PO SCH (09:08)
[2016-12-10] MEDS: SODIUM CHLORIDE 0.9% (FLUSH) 10 ML SYG IV SCH (09:09)
[2016-12-10] MEDS: APIXABAN 2.5 MG TAB PO SCH (09:11)
[2016-12-10] MEDS ORDERED: APIXABAN 2.5 MG TAB PO ONE ×2 (09:11→09:13)
[2016-12-10] MEDS ORDERED: cefTRIAXone SODIUM 1 GM VIAL ONE (10:05)
[2016-12-10] MEDS ORDERED: SODIUM CHL 0.9% 50ML MIN-BAG+ 50 ML IVPB ONE (10:05)
[2016-12-10] MEDS: cefTRIAXone SODIUM 1 GM in SODIUM CHL 0.9% 50ML MIN-BAG+ 50 ML IVPB SCH (11:00)
[2016-12-10] MEDS ORDERED: ALBUTEROL INHALER 64 PUFF/8GM INH PRN (11:41)
[2016-12-10 15:54] VITALS: O2SAT 95
[2016-12-10 16:17] VITALS: BP 147/75; TEMP 97
--- NOTE | 2016-12-10 20:16 | DS ---
DISCHARGE DIAGNOSIS: 1. Postoperative day number 6 gamma nail placement for an acute intertrochanteric fracture of the left hip performed by Dr. Jefferson Wilson, orthopedic surgeon on 12/04/16. 2. Significant postoperative anemia probably secondary to a femoral fracture requiring 2 units of red blood cells with reevaluation showing some improvement in the blood hemoglobin level before the patient could be readied for rehab Swing Bed status. 3. Hypertension, stable. 4. Chronic obstructive pulmonary disease, stable. 5. History of dementia with some psychosis currently on Seroquel and stable. 6. Chronic tobacco abuse currently on a nicotine patch, encouraged to stop. 7. History of recent acute pulmonary embolism diagnosed at [facility] on 11/11/16 having been on Eliquis which is now resumed postoperatively after being held before the surgery had been performed. 8. History of recent right middle and lower lobe pneumonias having completed a course of therapy at [facility]. 9. Hyponatremia and mild hypokalemia, improved with supplementation. 10. Recent history of a right ankle fracture treated by Dr. Wilson with partial weightbearing and support boot. HISTORY OF PRESENT ILLNESS: This 80 year-old white female was admitted to the hospital via the Emergency Room after falling at home. She did have a caregiver at home but apparently she tripped on some carpeting and even though using a walker, fell forcefully onto her left side with an intertrochanteric fracture of the left femur noted. This was subsequently repaired by Dr. Wilson with a gamma nail, the procedure of which she tolerated fairly well. She had a fairly significant amount of blood absorption into the area of the fracture contributing to her anemia requiring 2 units of packed red blood cells before she could be transferred to the Swing Bed rehabilitation service. At the time of discharge, the patient was ready for continued Swing Bed rehabilitation care. PAST MEDICAL HISTORY: 1. Hypertension. 2. Chronic obstructive pulmonary disease. 3. Fracture of the fifth metatarsal of the right foot in 2003. 4. Osteoporosis diagnosed in 2009. 5. 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 6. General anxiety disorder. 7. Tobacco abuse, current smoker since 1952. PAST SURGICAL HISTORY: 1. Appendectomy in 1954. 2. Total abdominal hysterectomy with bilateral salpingo-oophorectomy for benign fibroma of the left ovary. 3. Tubal ligation. 4. Left knee surgery in 1971. 5. Bilateral cataracts in 2008. 6. Cranio-orbit zygomatic skull based approach resection of tumor with pathology revealing a fragment of fibro connected and skeletal muscle tissue with distorted vasculature suggestive of hemangioma in 2009. 7. Echocardiogram in 2009 with an ejection fraction of 65%. 8. Gamma nail repair left intertrochanteric fracture performed on 12/04/16. HOME MEDICATIONS: Please refer to nurses' notes. ALLERGIES: NONE KNOWN. FAMILY HISTORY: Lung cancer and heart disease present. SOCIAL HISTORY: The patients is a retired [employer] employee. She is , has 4 children. She is a current smoker of a pack a day since age 17 , encouraged to stop. She has been drinking alcohol infrequently, usually Vodka. REVIEW OF SYSTEMS: Unchanged. PHYSICAL EXAMINATION: VITAL SIGNS: Afebrile, pulse 86, blood pressure 147/75, room air saturation 95% , weight 69.1 kilos. GENERAL: The patients is awake and alert. She has had spells of severe confusion state in the past possibly related to anesthesia and analgesic medications which are attempting to be adjusted as the rehab condition continues. CHEST: Lungs have diminished breath sounds. HEART: Tones regular. ABDOMEN: Soft, slightly distended with fairly good bowel tones. No rebound tenderness. EXTREMITIES: The left leg does show evidence of ecchymoses with good healing process of the incision at the lateral left hip region. NEUROLOGIC: The patient is having some difficulty with confusion states, especially worse in the evening. She does have a sitter and/or family with her at all times which assists greatly in her ongoing care. HOSPITAL COURSE: The patient was feeling much improved at the time of discharge from Med/Surg and will be continued on Swing Bed rehabilitation until she is safely able to continue care at home. PLAN: The patient is admitted to Swing Bed rehabilitation status as of today after being discharged from Med/Surg. Eventually she will be available to go home when stable and will benefit by ongoing shelter care at home and with family's assistance, which is greatly benefitting the patient. Close followup suggested. Special attention to prevention of DVT and close followup suggested as Physical Therapy and Orthopedic Surgery supervisor records change rehab course. #[id number] [facility]
== END 2016-12-10 16:18 | disposition swing bed (61) | DRG 481 ==
LOC: ER 21:40 → UNDOADMIN 23:08 → MS 23:08
PROVIDERS: ADMIT Nurse Practitioner Family; ATTEND Emergency Medicine
PROC: 0QH736Z Insertion of Intramedullary Internal Fixation Device into Left Upper Femur, Percutaneous Approach (ICD-10-PCS; principal; 2016-12-02)
PROC: 30233N1 Transfusion of Nonautologous Red Blood Cells into Peripheral Vein, Percutaneous Approach (ICD-10-PCS; 2016-12-08)
DX: S72.142A Displaced intertrochanteric fracture of left femur, initial encounter for closed fracture (principal); F02.81 Dementia in other diseases classified elsewhere, unspecified severity, with behavioral disturbance; N39.0 Urinary tract infection, site not specified; E87.1 Hypo-osmolality and hyponatremia; S82.891D Other fracture of right lower leg, subsequent encounter for closed fracture with routine healing; W01.0XXA Fall on same level from slipping, tripping and stumbling without subsequent striking against object, initial encounter; D64.9 Anemia, unspecified; E87.6 Hypokalemia; J44.9 Chronic obstructive pulmonary disease, unspecified; I10 Essential (primary) hypertension; M81.0 Age-related osteoporosis without current pathological fracture; G30.9 Alzheimer's disease, unspecified; F41.1 Generalized anxiety disorder; F17.210 Nicotine dependence, cigarettes, uncomplicated; Z86.711 Personal history of pulmonary embolism; Y93.89 Activity, other specified; Y92.002 Bathroom of unspecified non-institutional (private) residence as the place of occurrence of the external cause; Y99.9 Unspecified external cause status; Z79.01 Long term (current) use of anticoagulants; Z79.1 Long term (current) use of non-steroidal anti-inflammatories (NSAID); Z79.51 Long term (current) use of inhaled steroids; Z87.01 Personal history of pneumonia (recurrent)

== ENCOUNTER 2016-12-10 16:21 | Inpatient (IN) | payer OTHER ==
[2016-12-10] MEDS ORDERED: MAGNESIUM HYDROXIDE 30 ML UD PO PRN (16:56)
[2016-12-10] MEDS ORDERED: SODIUM PHOS/BIPHOS ENEMA ADULT 133 ML BTTL PR PRN (16:56)
[2016-12-10] MEDS ORDERED: ACETAMINOPHEN 325 MG TAB PO PRN (17:30)
[2016-12-10] MEDS ORDERED: ACETAMINOPHEN 325 MG TAB ONE (17:42)
[2016-12-10] MEDS ORDERED: ALBUTEROL SULFATE 2.5 MG/3 ML VIAL NEB ONE (19:09)
[2016-12-10] MEDS: CEPHALEXIN MONOHYDRATE 500 MG CAP PO SCH ×2 (19:30→23:45)
--- NOTE | 2016-12-10 20:17 | HP ---
DISCHARGE DIAGNOSIS: 1. Postoperative day number 6 gamma nail placement for an acute intertrochanteric fracture of the left hip performed by Dr. Jefferson Wilson, orthopedic surgeon on 12/04/16. 2. Significant postoperative anemia probably secondary to a femoral fracture requiring 2 units of red blood cells with reevaluation showing some improvement in the blood hemoglobin level before the patient could be readied for rehab Swing Bed status. 3. Hypertension, stable. 4. Chronic obstructive pulmonary disease, stable. 5. History of dementia with some psychosis currently on Seroquel and stable. 6. Chronic tobacco abuse currently on a nicotine patch, encouraged to stop. 7. History of recent acute pulmonary embolism diagnosed at [facility] on 11/11/16 having been on Eliquis which is now resumed postoperatively after being held before the surgery had been performed. 8. History of recent right middle and lower lobe pneumonias having completed a course of therapy at [facility]. 9. Hyponatremia and mild hypokalemia, improved with supplementation. 10. Recent history of a right ankle fracture treated by Dr. Wilson with partial weightbearing and support boot. HISTORY OF PRESENT ILLNESS: This 80 year-old white female was admitted to the hospital via the Emergency Room after falling at home. She did have a caregiver at home but apparently she tripped on some carpeting and even though using a walker, fell forcefully onto her left side with an intertrochanteric fracture of the left femur noted. This was subsequently repaired by Dr. Wilson with a gamma nail, the procedure of which she tolerated fairly well. She had a fairly significant amount of blood absorption into the area of the fracture contributing to her anemia requiring 2 units of packed red blood cells before she could be transferred to the Swing Bed rehabilitation service. At the time of discharge, the patient was ready for continued Swing Bed rehabilitation care. PAST MEDICAL HISTORY: 1. Hypertension. 2. Chronic obstructive pulmonary disease. 3. Fracture of the fifth metatarsal of the right foot in 2003. 4. Osteoporosis diagnosed in 2009. 5. 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 6. General anxiety disorder. 7. Tobacco abuse, current smoker since 1952. PAST SURGICAL HISTORY: 1. Appendectomy in 1954. 2. Total abdominal hysterectomy with bilateral salpingo-oophorectomy for benign fibroma of the left ovary. 3. Tubal ligation. 4. Left knee surgery in 1971. 5. Bilateral cataracts in 2008. 6. Cranio-orbit zygomatic skull based approach resection of tumor with pathology revealing a fragment of fibro connected and skeletal muscle tissue with distorted vasculature suggestive of hemangioma in 2009. 7. Echocardiogram in 2009 with an ejection fraction of 65%. 8. Gamma nail repair left intertrochanteric fracture performed on 12/04/16. HOME MEDICATIONS: Please refer to nurses' notes. ALLERGIES: NONE KNOWN. FAMILY HISTORY: Lung cancer and heart disease present. SOCIAL HISTORY: The patients is a retired [employer] employee. She is , has 4 children. She is a current smoker of a pack a day since age 17 , encouraged to stop. She has been drinking alcohol infrequently, usually Vodka. REVIEW OF SYSTEMS: Unchanged. PHYSICAL EXAMINATION: VITAL SIGNS: Afebrile, pulse 86, blood pressure 147/75, room air saturation 95% , weight 69.1 kilos. GENERAL: The patients is awake and alert. She has had spells of severe confusion state in the past possibly related to anesthesia and analgesic medications which are attempting to be adjusted as the rehab condition continues. CHEST: Lungs have diminished breath sounds. HEART: Tones regular. ABDOMEN: Soft, slightly distended with fairly good bowel tones. No rebound tenderness. EXTREMITIES: The left leg does show evidence of ecchymoses with good healing process of the incision at the lateral left hip region. NEUROLOGIC: The patient is having some difficulty with confusion states, especially worse in the evening. She does have a sitter and/or family with her at all times which assists greatly in her ongoing care. HOSPITAL COURSE: The patient was feeling much improved at the time of discharge from Med/Surg and will be continued on Swing Bed rehabilitation until she is safely able to continue care at home. PLAN: The patient is admitted to Swing Bed rehabilitation status as of today after being discharged from Med/Surg. Eventually she will be available to go home when stable and will benefit by ongoing intermediate care at home and with family's assistance, which is greatly benefitting the patient. Close followup suggested. Special attention to prevention of DVT and close followup suggested as Physical Therapy and Orthopedic Surgery electrical installation supervisor rehab course. #[id number] [facility]ENTERFernando
[2016-12-10] MEDS: LEVALBUTEROL NEBS 1.25 MG/3 ML VIAL INH SCH (20:36)
[2016-12-10] MEDS ORDERED: APIXABAN 2.5 MG TAB PO ONE (20:59)
[2016-12-10] MEDS ORDERED: NON-FORMULARY MEDICATION 1 EA MIS (Apixaban [Eliquis] 5 MG) PO SCH (21:00)
[2016-12-10] MEDS: QUEtiapine FUMARATE 25 MG TAB PO SCH (21:16)
[2016-12-10] MEDS: LORazepam 0.5 MG TAB PO PRN (23:45)
[2016-12-10] MEDS: HYDROcodone 5MG/APAP 325MG 1 EA TAB PO PRN (23:45)
[2016-12-11] MEDS ORDERED: LEVALBUTEROL NEBS 1.25 MG/3 ML VIAL INH SCH
[2016-12-11] MEDS: PANTOPRAZOLE SODIUM TAB 40 MG PO SCH (06:02)
[2016-12-11] MEDS ORDERED: FLUTICASONE/SALMETEROL 250/50 14 PUFF/17 GM INH INH SCH (08:00)
[2016-12-11] MEDS: POTASSIUM CHLORIDE 10 MEQ TAB PO SCH (08:02)
[2016-12-11] MEDS: LEVALBUTEROL NEBS 1.25 MG/3 ML VIAL INH SCH ×3 (08:40→21:00)
[2016-12-11] MEDS: TIOTROPIUM INHALER INH SCH (08:40)
[2016-12-11] MEDS: APIXABAN 2.5 MG TAB PO SCH ×2 (08:48→20:32)
[2016-12-11] MEDS: LISINOPRIL 10 MG TAB PO SCH (08:48)
[2016-12-11] MEDS: QUEtiapine FUMARATE 25 MG TAB PO SCH ×2 (08:48→20:32)
[2016-12-11] MEDS: HYDROcodone 5MG/APAP 325MG 1 EA TAB PO PRN ×3 (08:48→17:51)
[2016-12-11] MEDS: DOCUSATE SODIUM 100 MG CAP PO SCH (08:48)
[2016-12-11] MEDS: CEPHALEXIN MONOHYDRATE 500 MG CAP PO SCH ×2 (08:48→17:51)
[2016-12-11] MEDS: amLODIPine BESYLATE 5 MG TAB PO SCH (08:49)
[2016-12-11] MEDS: DONEPEZIL HCL 5 MG TAB PO SCH (08:49)
[2016-12-11] MEDS: NICOTINE PATCH 14 MG TD SCH (09:42)
[2016-12-11] MEDS ORDERED: ALUM & MAG HYDROX-SIMETHICONE 30 ML UD PO PRN (18:39)
[2016-12-11] MEDS: HYDROcodone 10MG/APAP 325MG 1 EA TAB PO PRN (20:32)
[2016-12-11] MEDS: FLUTICASONE/SALMETEROL 250/50 14 PUFF/17 GM INH INH SCH (21:00)
[2016-12-11] MEDS: LORazepam 0.5 MG TAB PO PRN (22:00)
[2016-12-12] MEDS: CEPHALEXIN MONOHYDRATE 500 MG CAP PO SCH ×3 (02:01→18:01)
[2016-12-12] MEDS: PANTOPRAZOLE SODIUM TAB 40 MG PO SCH (06:22)
--- NOTE | 2016-12-12 08:24 | PN ---
DATE: 12/11/16 SUBJECTIVE: The patient is sitting up, fully alert and cooperative. She just had a good trip to the bathroom and is still working on a mild degree of constipation. Physical therapy is continuing to work with her rehabilitation. OBJECTIVE: The wound appears to be good on the left lateral hip. Continues with her rehab program. ASSESSMENT: 1. History of left intertrochanteric fracture, currently day 7 after Gamma nail repair by Dr. Wilson. PLAN: We will continue observing the hypertension, the chronic obstructive pulmonary disease. Her dementia seems to be better. Continue with observing the hyponatremia, the recent pulmonary embolism and the anemia. Continue with increased activity level until safe to return home with improved physical conditioning and confidence. #[id number] [facility]
[2016-12-12] MEDS: HYDROcodone 10MG/APAP 325MG 1 EA TAB PO PRN ×2 (08:55→22:46)
[2016-12-12] MEDS: APIXABAN 2.5 MG TAB PO SCH ×2 (09:00→20:10)
[2016-12-12] MEDS: DONEPEZIL HCL 5 MG TAB PO SCH (09:01)
[2016-12-12] MEDS: POTASSIUM CHLORIDE 10 MEQ TAB PO SCH (09:01)
[2016-12-12] MEDS: LISINOPRIL 10 MG TAB PO SCH (09:01)
[2016-12-12] MEDS: NICOTINE PATCH 14 MG TD SCH (09:01)
[2016-12-12] MEDS: QUEtiapine FUMARATE 25 MG TAB PO SCH ×2 (09:01→20:11)
[2016-12-12] MEDS: amLODIPine BESYLATE 5 MG TAB PO SCH (09:01)
[2016-12-12] MEDS: DOCUSATE SODIUM 100 MG CAP PO SCH (09:01)
[2016-12-12] MEDS: LEVALBUTEROL NEBS 1.25 MG/3 ML VIAL INH SCH ×3 (09:29→20:48)
[2016-12-12] MEDS: FLUTICASONE/SALMETEROL 250/50 14 PUFF/17 GM INH INH SCH (09:30)
[2016-12-12] MEDS: TIOTROPIUM INHALER INH SCH (09:30)
[2016-12-12] MEDS ORDERED: SUCRALFATE 1 GM/10 ML 1 GM UD ONE (10:59)
--- NOTE | 2016-12-12 13:58 | PN ---
DATE: 12/12/16 SUBJECTIVE: The patient is sitting up in the chair eating. She is very awake and alert. No noticeable dyspnea at this time. She has a fracture boot on where her ankle has been fractured to assist. She stood up this morning when the therapist came in, but did not participate with walking and this will be discussed with the therapist to see if there is a reason. She is complaining of no significant pain at this time. History of pulmonary embolism in the past as well as low sodium and anemia which will require further lab evaluation tomorrow as rehab continues. Close followup suggested. #[id number] KERRY
[2016-12-12] MEDS: LORazepam 0.5 MG TAB PO PRN (20:53)
[2016-12-13] MEDS: CEPHALEXIN MONOHYDRATE 500 MG CAP PO SCH ×2 (01:14→08:38)
[2016-12-13] MEDS: PANTOPRAZOLE SODIUM TAB 40 MG PO SCH (05:49)
--- NOTE | 2016-12-13 08:17 | PN ---
DATE: 12/12/16 SUBJECTIVE: Ms. Vallejo is doing well. OBJECTIVE: Afebrile. Vital signs stable. Wound is clean. There are no signs or symptoms of infection. ASSESSMENT: Status post Gamma nail. PLAN: At this point, Ms. Vallejo appears to be making progress. She is not a candidate for discharge at this time and, therefore, Swing Bed will continue. She will continue with therapy. #[id number] MTDD
[2016-12-13] MEDS: POTASSIUM CHLORIDE 10 MEQ TAB PO SCH (08:36)
[2016-12-13] MEDS: NICOTINE PATCH 14 MG TD SCH (08:37)
[2016-12-13] MEDS: QUEtiapine FUMARATE 25 MG TAB PO SCH ×2 (08:37→20:59)
[2016-12-13] MEDS: DONEPEZIL HCL 5 MG TAB PO SCH (08:38)
[2016-12-13] MEDS: amLODIPine BESYLATE 5 MG TAB PO SCH (08:38)
[2016-12-13] MEDS: APIXABAN 2.5 MG TAB PO SCH ×2 (08:38→20:59)
[2016-12-13] MEDS: DOCUSATE SODIUM 100 MG CAP PO SCH (08:38)
[2016-12-13] MEDS: LISINOPRIL 10 MG TAB PO SCH (08:38)
[2016-12-13] MEDS: HYDROcodone 10MG/APAP 325MG 1 EA TAB PO PRN ×2 (08:44→13:43)
[2016-12-13] MEDS: LEVALBUTEROL NEBS 1.25 MG/3 ML VIAL INH SCH ×3 (09:07→20:42)
[2016-12-13] MEDS: FLUTICASONE/SALMETEROL 250/50 14 PUFF/17 GM INH INH SCH ×2 (09:16→20:43)
[2016-12-13] MEDS: TIOTROPIUM INHALER INH SCH (09:16)
[2016-12-13] MEDS: LORazepam 0.5 MG TAB PO PRN (13:35)
--- NOTE | 2016-12-13 21:25 | PN ---
DATE: 12/13/16 SUBJECTIVE: Ms. Vallejo seems to be more active today. She still has occasional flare-ups where she resists some of the assistance of the staff, but seems to be responding appropriately and hopefully is showing a little more strength and endurance than she had. OBJECTIVE: Lab studies were done today and white count was 8,000, hemoglobin 12.4. Sodium 135, potassium 3.8, BUN 11, calcium 11.1. Further evaluation and followup of the calcium may be helpful. Review of previous calcium show the calcium was elevated up to 11.5 a month ago, it came down to 9.7 the first of this month and now is back up to 11.1 at this time. Albumin has been low at 2.5 in the past. ASSESSMENT: 1. History of left intertrochanteric fracture after a fall currently day number 9 after gamma nail repair by Dr. Wilson. PLAN: Continue with rehabilitation under Orthopedic Surgery and Physical Therapy supervision. Special attention to assisting the aides that are presently with the patient and to get her on a rhythm of self care so that she will be able to eventually safely return home. #[id number] [facility]
[2016-12-14] MEDS: PANTOPRAZOLE SODIUM TAB 40 MG PO SCH (06:35)
[2016-12-14] MEDS: POTASSIUM CHLORIDE 10 MEQ TAB PO SCH (07:36)
[2016-12-14] MEDS: HYDROcodone 10MG/APAP 325MG 1 EA TAB PO PRN ×2 (08:02→20:58)
[2016-12-14] MEDS: FLUTICASONE/SALMETEROL 250/50 14 PUFF/17 GM INH INH SCH ×2 (08:52→20:28)
[2016-12-14] MEDS: LEVALBUTEROL NEBS 1.25 MG/3 ML VIAL INH SCH ×3 (08:52→20:26)
[2016-12-14] MEDS: TIOTROPIUM INHALER INH SCH (08:53)
[2016-12-14] MEDS: amLODIPine BESYLATE 5 MG TAB PO SCH (08:57)
[2016-12-14] MEDS: NICOTINE PATCH 14 MG TD SCH (08:57)
[2016-12-14] MEDS: QUEtiapine FUMARATE 25 MG TAB PO SCH ×2 (08:58→20:45)
[2016-12-14] MEDS: LISINOPRIL 10 MG TAB PO SCH (08:58)
[2016-12-14] MEDS: DONEPEZIL HCL 5 MG TAB PO SCH (08:58)
[2016-12-14] MEDS: APIXABAN 2.5 MG TAB PO SCH ×2 (08:58→20:45)
[2016-12-14] MEDS: DOCUSATE SODIUM 100 MG CAP PO SCH (09:00)
--- NOTE | 2016-12-14 20:58 | PCM.CORE ---
Physician DVT/VTE - Prophylaxis Currently: Patient already on anticoagulation therapy - xarelto - Nurse DVT Assessment & Total Each Risk Factor Represents 5 Points: Major Trauma < 1 month Each Risk Factor Represents 3 Points: Age over 75 years Each Risk Factor Represents 1 Point: Hx Major Surgery <1month, Hx of smoking past year DVT Assessment Score: 10 - 5 or more Very High Risk Treatments: Early Ambulation *, Sequential Compression Device
[2016-12-15] MEDS: LORazepam 0.5 MG TAB PO PRN ×2 (02:55→22:23)
[2016-12-15] MEDS: PANTOPRAZOLE SODIUM TAB 40 MG PO SCH (06:01)
[2016-12-15] MEDS: HYDROcodone 10MG/APAP 325MG 1 EA TAB PO PRN ×3 (08:17→22:23)
[2016-12-15] MEDS: POTASSIUM CHLORIDE 10 MEQ TAB PO SCH (08:17)
[2016-12-15] MEDS: LEVALBUTEROL NEBS 1.25 MG/3 ML VIAL INH SCH ×3 (08:45→21:07)
[2016-12-15] MEDS: TIOTROPIUM INHALER INH SCH (09:28)
[2016-12-15] MEDS: FLUTICASONE/SALMETEROL 250/50 14 PUFF/17 GM INH INH SCH ×2 (09:28→21:09)
[2016-12-15] MEDS: DONEPEZIL HCL 5 MG TAB PO SCH (10:25)
[2016-12-15] MEDS: amLODIPine BESYLATE 5 MG TAB PO SCH (10:25)
[2016-12-15] MEDS: APIXABAN 2.5 MG TAB PO SCH ×2 (10:25→20:29)
[2016-12-15] MEDS: QUEtiapine FUMARATE 25 MG TAB PO SCH ×2 (10:25→20:29)
[2016-12-15] MEDS: DOCUSATE SODIUM 100 MG CAP PO SCH (10:25)
[2016-12-15] MEDS: LISINOPRIL 10 MG TAB PO SCH (10:25)
[2016-12-15] MEDS: NICOTINE PATCH 14 MG TD SCH (10:26)
[2016-12-16] MEDS: PANTOPRAZOLE SODIUM TAB 40 MG PO SCH (05:59)
[2016-12-16] MEDS: TIOTROPIUM INHALER INH SCH (07:50)
[2016-12-16] MEDS: POTASSIUM CHLORIDE 10 MEQ TAB PO SCH (07:50)
[2016-12-16] MEDS: LEVALBUTEROL NEBS 1.25 MG/3 ML VIAL INH SCH ×3 (07:50→20:50)
[2016-12-16] MEDS: FLUTICASONE/SALMETEROL 250/50 14 PUFF/17 GM INH INH SCH ×2 (07:50→20:50)
[2016-12-16] MEDS: HYDROcodone 10MG/APAP 325MG 1 EA TAB PO PRN ×2 (07:50→13:13)
[2016-12-16] MEDS: APIXABAN 2.5 MG TAB PO SCH ×2 (10:22→20:50)
[2016-12-16] MEDS: LISINOPRIL 10 MG TAB PO SCH (10:23)
[2016-12-16] MEDS: DOCUSATE SODIUM 100 MG CAP PO SCH (10:23)
[2016-12-16] MEDS: amLODIPine BESYLATE 5 MG TAB PO SCH (10:23)
[2016-12-16] MEDS: DONEPEZIL HCL 5 MG TAB PO SCH (10:23)
[2016-12-16] MEDS: QUEtiapine FUMARATE 25 MG TAB PO SCH ×2 (10:23→20:50)
[2016-12-16] MEDS: NICOTINE PATCH 14 MG TD SCH (10:25)
[2016-12-16] MEDS ORDERED: diphenhydrAMINE HCL 12.5 MG/5 ML UD PO PRN (14:48)
[2016-12-16] MEDS: LORazepam 0.5 MG TAB PO PRN (21:05)
[2016-12-17] MEDS: LORazepam 0.5 MG TAB PO PRN ×2 (04:12→16:38)
[2016-12-17] MEDS: HYDROcodone 10MG/APAP 325MG 1 EA TAB PO PRN ×2 (04:12→18:13)
[2016-12-17] MEDS: PANTOPRAZOLE SODIUM TAB 40 MG PO SCH (06:18)
[2016-12-17] MEDS: FLUTICASONE/SALMETEROL 250/50 14 PUFF/17 GM INH INH SCH ×2 (07:25→20:49)
[2016-12-17] MEDS: LEVALBUTEROL NEBS 1.25 MG/3 ML VIAL INH SCH ×3 (07:25→20:50)
[2016-12-17] MEDS: TIOTROPIUM INHALER INH SCH (07:25)
[2016-12-17] MEDS ORDERED: diphenhydrAMINE HCL 12.5 MG/5 ML UD PO PRN (08:00)
[2016-12-17] MEDS: POTASSIUM CHLORIDE 10 MEQ TAB PO SCH (08:09)
[2016-12-17] MEDS: amLODIPine BESYLATE 5 MG TAB PO SCH (09:13)
[2016-12-17] MEDS: DOCUSATE SODIUM 100 MG CAP PO SCH (09:13)
[2016-12-17] MEDS: NICOTINE PATCH 14 MG TD SCH (09:13)
[2016-12-17] MEDS: QUEtiapine FUMARATE 25 MG TAB PO SCH ×2 (09:14→21:12)
[2016-12-17] MEDS: APIXABAN 2.5 MG TAB PO SCH ×2 (09:14→21:12)
[2016-12-17] MEDS: DONEPEZIL HCL 5 MG TAB PO SCH (09:14)
[2016-12-17] MEDS: LISINOPRIL 10 MG TAB PO SCH (09:14)
--- NOTE | 2016-12-17 18:46 | PN ---
DATE: 12/17/16 SUPERVISING PHYSICIAN: Mauricio Phipps M.D. SUBJECTIVE: Ms. Vallejo is doing well. She is very active. She has been mentally stable. She has had some difficulty with sleeping but has overall been improving. She continues to work well with Physical Therapy. OBJECTIVE: Vital signs remain stable. Temperature 97.7, pulse 79, blood pressure 128/73, respirations 21, satting 98% on room air. Weight 65.5 kg. CHEST: Lungs are clear to auscultation. HEART: Regular rate and rhythm. ABDOMEN: Soft, non-tender. Positive bowel sounds. EXTREMITIES: No clubbing, cyanosis or edema. Left hip has incision that looks clean and dry without any obvious infection. NEUROLOGIC: She is alert to herself and her family, and is cooperative. ASSESSMENT: 1. History of left intertrochanteric hip fracture after a fall currently on day number 13 after gamma nail repair by Dr. Wilson. PLAN: Continue with rehab under Orthopedic Surgery and continued Physical Therapy supervision. Will anticipate discharge as she meets clinical goals. Until then continue to monitor and treat appropriately. #[id number] [facility]
[2016-12-17] MEDS ORDERED: HALOPERIDOL LACTATE INJ 5 MG/ML VIAL IM ONE ×2 (22:43→22:50)
[2016-12-18] MEDS: HYDROcodone 10MG/APAP 325MG 1 EA TAB PO PRN ×3 (01:11→18:08)
[2016-12-18] MEDS: PANTOPRAZOLE SODIUM TAB 40 MG PO SCH (06:40)
[2016-12-18] MEDS: POTASSIUM CHLORIDE 10 MEQ TAB PO SCH (07:44)
[2016-12-18] MEDS: LEVALBUTEROL NEBS 1.25 MG/3 ML VIAL INH SCH ×3 (08:50→21:09)
[2016-12-18] MEDS: FLUTICASONE/SALMETEROL 250/50 14 PUFF/17 GM INH INH SCH ×2 (09:00→21:09)
[2016-12-18] MEDS: TIOTROPIUM INHALER INH SCH (09:00)
[2016-12-18] MEDS: APIXABAN 2.5 MG TAB PO SCH ×2 (09:31→20:35)
[2016-12-18] MEDS: LISINOPRIL 10 MG TAB PO SCH (09:31)
[2016-12-18] MEDS: DONEPEZIL HCL 5 MG TAB PO SCH (09:31)
[2016-12-18] MEDS: QUEtiapine FUMARATE 25 MG TAB PO SCH ×2 (09:31→20:35)
[2016-12-18] MEDS: DOCUSATE SODIUM 100 MG CAP PO SCH (09:32)
[2016-12-18] MEDS: amLODIPine BESYLATE 5 MG TAB PO SCH (09:32)
[2016-12-18] MEDS: NICOTINE PATCH 14 MG TD SCH (09:32)
[2016-12-19] MEDS: PANTOPRAZOLE SODIUM TAB 40 MG PO SCH (05:55)
[2016-12-19] MEDS: LEVALBUTEROL NEBS 1.25 MG/3 ML VIAL INH SCH ×3 (08:50→20:51)
[2016-12-19] MEDS: HYDROcodone 10MG/APAP 325MG 1 EA TAB PO PRN ×3 (09:20→22:12)
[2016-12-19] MEDS: POTASSIUM CHLORIDE 10 MEQ TAB PO SCH (09:21)
[2016-12-19] MEDS: NICOTINE PATCH 14 MG TD SCH (09:22)
[2016-12-19] MEDS: LISINOPRIL 10 MG TAB PO SCH (09:22)
[2016-12-19] MEDS: QUEtiapine FUMARATE 25 MG TAB PO SCH ×2 (09:22→21:08)
[2016-12-19] MEDS: DONEPEZIL HCL 5 MG TAB PO SCH (09:22)
[2016-12-19] MEDS: DOCUSATE SODIUM 100 MG CAP PO SCH (09:22)
[2016-12-19] MEDS: APIXABAN 2.5 MG TAB PO SCH ×2 (09:22→21:08)
[2016-12-19] MEDS: amLODIPine BESYLATE 5 MG TAB PO SCH (09:23)
[2016-12-19] MEDS: FLUTICASONE/SALMETEROL 250/50 14 PUFF/17 GM INH INH SCH ×2 (09:45→20:51)
[2016-12-19] MEDS: TIOTROPIUM INHALER INH SCH (09:45)
[2016-12-19] MEDS: LORazepam 0.5 MG TAB PO PRN (19:22)
[2016-12-20] MEDS: HYDROcodone 10MG/APAP 325MG 1 EA TAB PO PRN ×2 (04:25→08:40)
[2016-12-20] MEDS: PANTOPRAZOLE SODIUM TAB 40 MG PO SCH (06:28)
[2016-12-20] MEDS: TIOTROPIUM INHALER INH SCH (08:17)
[2016-12-20] MEDS: FLUTICASONE/SALMETEROL 250/50 14 PUFF/17 GM INH INH SCH ×2 (08:17→21:41)
[2016-12-20] MEDS: LEVALBUTEROL NEBS 1.25 MG/3 ML VIAL INH SCH ×3 (08:17→21:41)
[2016-12-20] MEDS: POTASSIUM CHLORIDE 10 MEQ TAB PO SCH (08:31)
[2016-12-20] MEDS: DONEPEZIL HCL 5 MG TAB PO SCH (08:32)
[2016-12-20] MEDS: NICOTINE PATCH 14 MG TD SCH (08:33)
[2016-12-20] MEDS: APIXABAN 2.5 MG TAB PO SCH ×2 (08:33→20:48)
[2016-12-20] MEDS: QUEtiapine FUMARATE 25 MG TAB PO SCH ×2 (08:33→20:48)
[2016-12-20] MEDS: LISINOPRIL 10 MG TAB PO SCH (08:33)
[2016-12-20] MEDS: DOCUSATE SODIUM 100 MG CAP PO SCH (08:33)
[2016-12-20] MEDS: amLODIPine BESYLATE 5 MG TAB PO SCH (08:33)
[2016-12-20] MEDS: LORazepam 0.5 MG TAB PO PRN ×2 (15:20→21:19)
[2016-12-21] MEDS: PANTOPRAZOLE SODIUM TAB 40 MG PO SCH (05:54)
[2016-12-21] MEDS: POTASSIUM CHLORIDE 10 MEQ TAB PO SCH (08:09)
[2016-12-21] MEDS: FLUTICASONE/SALMETEROL 250/50 14 PUFF/17 GM INH INH SCH (08:40)
[2016-12-21] MEDS: LEVALBUTEROL NEBS 1.25 MG/3 ML VIAL INH SCH (08:40)
[2016-12-21] MEDS: TIOTROPIUM INHALER INH SCH (08:40)
[2016-12-21] MEDS: HYDROcodone 10MG/APAP 325MG 1 EA TAB PO PRN (09:43)
[2016-12-21] MEDS: NICOTINE PATCH 14 MG TD SCH (09:46)
[2016-12-21] MEDS: amLODIPine BESYLATE 5 MG TAB PO SCH (09:47)
[2016-12-21] MEDS: DOCUSATE SODIUM 100 MG CAP PO SCH (09:48)
[2016-12-21] MEDS: LISINOPRIL 10 MG TAB PO SCH (09:48)
[2016-12-21] MEDS: QUEtiapine FUMARATE 25 MG TAB PO SCH (09:49)
[2016-12-21] MEDS: APIXABAN 2.5 MG TAB PO SCH (09:49)
[2016-12-21] MEDS: DONEPEZIL HCL 5 MG TAB PO SCH (09:50)
[2016-12-21 12:47] VITALS: BP 133/69; TEMP 97.7; O2SAT 94
--- NOTE | 2016-12-21 14:10 | DS ---
SUPERVISING PHYSICIAN: Mauricio Phipps MD DISCHARGE DIAGNOSIS: 1. Postoperative day #15 Gamma nail placement for an acute intertrochanteric fracture of the left hip performed by Dr. Jefferson Wilson, orthopedic surgeon , on 12/04/16. 2. Significant postoperative anemia, probably secondary to a femoral fracture, requiring 2 units of red blood cells, now improved. 3. Hypertension. 4. Chronic obstructive pulmonary disease, stable. 5. History of dementia, currently on Seroquel and stable. 6. Chronic tobacco abuse, currently on a nicotine patch. 8. History of recent acute pulmonary embolism, diagnosed at [facility] on 11/11/16 and presently on Eliquis. 9. History of recent right middle and lower lobe pneumonia, treated at [facility], in October 2016. 10. Hyponatremia and mild hypokalemia, improved. 11. Recent history of a right ankle fracture, treated by Dr. Wilson with partial weightbearing and support boot. HISTORY OF PRESENT ILLNESS: This is an 80-year-old female patient who was admitted to Swing Bed at [facility] on 12/10/16. Her prior Acute Care admission was due to a fall at home that she sustained an acute intertrochanteric fracture of the left hip. On the day following admission, her hip was repaired by Dr. Wilson, orthopedic surgeon, with a Gamma nail. She tolerated the procedure well. During her hospital stay, she became anemic and required transfusion of 2 units of packed red blood cells. She also had to have supplementation for her hyponatremia and hypokalemia that improved during her Acute Care stay. She was admitted to Swing bed for strengthening and conditioning. She has completed her physical therapy and at this point can be discharged home. DISCHARGE PLAN: The patient will be discharged home in stable condition. She will have [facility] to continue with her physical therapy. She will be discharged on her home medications that include Eliquis. She will need a CBC and CMP when she sees Dr. Saunders on 12/22/16 at 9:45. She also has a followup appointment with Dr. Wilson in three weeks. I have given her some hydrocodone until she can be reevaluated by Dr. Saunders tomorrow as far as her pain medication needs. She is to return to hospital, call Dr. Saunders or Dr. Wilson for any problems that arise. DISCHARGE MEDICATIONS: 1. Spiriva. 2. Aricept. 3. ProAir. 4. Klonopin. 5. Norvasc. 6. Advair 250/50. 7. Eliquis. 8. Butalbital-acetaminophen. 9. Diphenhydramine. 10. Guaifenesin. 11. Albuterol nebulizers. 12. Hydrocodone. 13. Pantoprazole. 14. Potassium chloride. 15. Seroquel. 16. Lisinopril. 17. Nicotine patch. Dr. Phipps is the collaborating physician and available for consultation. #[id number] [facility]
== END 2016-12-21 12:40 | disposition home health service (06) | DRG 560 ==
LOC: INTOOBSV 16:21 → OBSVTOIN 16:21 → MS 16:21
PROVIDERS: ADMIT Emergency Medicine; ATTEND Nurse Practitioner Acute Care
DX: S72.142D Displaced intertrochanteric fracture of left femur, subsequent encounter for closed fracture with routine healing (principal); E87.1 Hypo-osmolality and hyponatremia; F02.81 Dementia in other diseases classified elsewhere, unspecified severity, with behavioral disturbance; S82.891D Other fracture of right lower leg, subsequent encounter for closed fracture with routine healing; D64.9 Anemia, unspecified; I10 Essential (primary) hypertension; J44.9 Chronic obstructive pulmonary disease, unspecified; Z86.711 Personal history of pulmonary embolism; E87.6 Hypokalemia; M81.0 Age-related osteoporosis without current pathological fracture; G30.9 Alzheimer's disease, unspecified; F41.1 Generalized anxiety disorder; K59.00 Constipation, unspecified; F17.210 Nicotine dependence, cigarettes, uncomplicated; Z79.02 Long term (current) use of antithrombotics/antiplatelets; Z79.52 Long term (current) use of systemic steroids; Z79.899 Other long term (current) drug therapy

== ENCOUNTER → 2017-01-04 | Outpatient (CLI) | payer OTHER ==
--- NOTE | 2017-01-04 11:52 | CT ---
EXAM DESCRIPTION: CTA Chest CLINICAL HISTORY: 81 years, Female, LUNG MASS COMPARISON: November 11, 2016 TECHNIQUE: Rapid bolus administration of nonionicIV contrast was performed with thin-section axial scanning of the chest performed in a dynamic fashion. Reconstructed multiplanar and three dimensional MIP and VRT images created on a separate dedicated workstation were reviewed along with the source axial images and stored in the patient's medical record. This exam was performed according to our departmental dose-optimization program, which includes automated exposure control, adjustment of the mA and/or kV according to patient size and/or use of iterative reconstruction technique. FINDINGS: CTA of the chest demonstrates an improved appearance of the right lung with interval resolution of the pulmonary embolus in the medial aspect of the right lower lobe. New emboli elsewhere are not apparent. The right hilar oval 3 x 2 cm soft tissue density mass is unchanged from prior study and likely represents an enlarged right hilar lymph node. The extensive inflammatory changes in the right lung base have essentially completely resolved and the left lung remains adequately aerated. A distinct endobronchial lesion is not apparent. A distinct etiology for the enlarged right hilar lymph node is not evident. Aneurysmal dilatation of the ascending aorta to 5.1 cm is present but unchanged from prior study. No involvement of the aortic arch or descending aorta is noted. In the infradiaphragmatic region marked intrahepatic ductal dilation and a large distended gallbladder is noted and incompletely evaluated. Extensive coronary calcification and aortic tortuosity and atherosclerosis is noted in the lower chest and abdomen. Kyphosis of the dorsal spine with old moderate mid dorsal compression deformities is unchanged. IMPRESSION: 1. Interval resolution of right lower lobe pulmonary embolus with no evidence of recurrent or new emboli. 2. Interval resolution of right basilar inflammatory changes but persistent enlarged approximate 3 x 2 cm inferior right hilar lymph node, of uncertain significance without distinct peripheral pulmonary mass. 3. Aneurysmal dilatation of the ascending aorta to 5.1 cm and unchanged from prior studies. 4. Markedly distended gallbladder and intrahepatic ductal dilation, again unchanged from prior study. Electronically signed by: Mauricio Monroy MD 01/04/2017 11:51 AM CDT
== END | disposition home or self-care (01) ==
LOC: CT 10:02
PROVIDERS: ATTEND Family Medicine
DX: R59.0 Localized enlarged lymph nodes (principal)

== ENCOUNTER → 2017-01-09 | Outpatient (CLI) | payer MEDICARE ==
--- NOTE | 2017-01-09 17:35 | RAD ---
EXAM DESCRIPTION: Ankle,Right 3 Views CLINICAL HISTORY: 81 years, Female, BIMALLEOLAR FX OF ANKLE, RIGHT COMPARISON: None. TECHNIQUE: AP/lateral/oblique of the ankle FINDINGS: The bony structures are severely osteopenic with an intact ankle mortise with an oblique fracture of the distal fibula just proximal to the ankle mortise. The medial malleolus and the posterior malleolus appear intact. IMPRESSION: 1. Mildly displaced distal fibular fracture at and just above the ankle mortise without significant disruption or widening of the mortise. Electronically signed by: Mauricio Monroy MD 01/09/2017 5:33 PM CDT
--- NOTE | 2017-01-09 17:37 | RAD ---
EXAM DESCRIPTION: Pelvis CLINICAL HISTORY: 81 years Female, PAIN IN LEFT HIP COMPARISON: December 04, 2016 FINDINGS: The bony pelvis and hips are severely osteopenic. There is internal fixation of an incompletely healed left hip fracture with separate lesser trochanteric fragment. Femoral head has impacted on the compression screw and the screw now projects beyond the cortical margin of the humeral head and into the medial aspect of the left hip joint and pubic and ischial rami in the iliac wings are intact. Severe degenerative changes in the spine and extensive vascular calcification noted. IMPRESSION: 1. Internal fixation of subacute left hip fracture with impaction of the femoral head into the compression screw which now projects into the left hip joint superomedially. This represents interval change from prior November 2016 study 2. Severe osteopenia and modest degenerative changes with intact bony pelvis Electronically signed by: Mauricio Monroy MD 01/09/2017 5:36 PM CDT
--- NOTE | 2017-01-09 17:39 | RAD ---
EXAM DESCRIPTION: Hip,Left 2 Views CLINICAL HISTORY: PAIN IN LEFT HIP COMPARISON: December 04, 2016 TECHNIQUE: AP/frog leg lateral FINDINGS: The left hip is internally fixed with a compression screw interlocking with a short intramedullary sven with interval impaction of the femoral head and neck into the fracture site with shortening and projection of the tip of the compression screw into the left hip joint superomedially. Alignment otherwise is near-anatomic with the frog-leg view confirming the tip of the screw projecting beyond the femoral head contour approximately 3 mm. IMPRESSION: Subacute fracture of the left hip with internal fixation with impaction of the femoral head and neck and the compression screw projecting into the left hip joint. This represents interval change from the essentially anatomic appearance noted December 04, 2016. Electronically signed by: Mauricio Monroy MD 01/09/2017 5:37 PM CDT
== END | disposition home or self-care (01) ==
LOC: RAD 08:42
PROVIDERS: ATTEND Orthopaedic Surgery
DX: S82.844D Nondisplaced bimalleolar fracture of right lower leg, subsequent encounter for closed fracture with routine healing (principal); X58.XXXA Exposure to other specified factors, initial encounter

== ENCOUNTER → 2017-01-10 | Outpatient (CLI) | payer MEDICARE | END | disposition home or self-care (01) | LOC: GMAL 14:24 | PROVIDERS: ATTEND Family Medicine | DX: R30.0 Dysuria (principal) ==

== ENCOUNTER → 2017-01-16 | Outpatient (CLI) | payer MEDICARE | LOC: YCHH 11:53 | PROVIDERS: ATTEND Family Medicine | DX: D53.9 Nutritional anemia, unspecified (principal); J18.9 Pneumonia, unspecified organism; J44.9 Chronic obstructive pulmonary disease, unspecified ==

== ENCOUNTER → 2017-01-18 | Outpatient (CLI) | payer MEDICARE, OTHER | LOC: YCHH 13:10 | PROVIDERS: ATTEND Family Medicine | DX: N39.0 Urinary tract infection, site not specified (principal) ==

== ENCOUNTER → 2017-01-24 | Outpatient (CLI) | payer OTHER | END | disposition home or self-care (01) | LOC: YCHH 14:45 | PROVIDERS: ATTEND Family Medicine | DX: J44.9 Chronic obstructive pulmonary disease, unspecified (principal); M62.81 Muscle weakness (generalized) ==

== ENCOUNTER → 2017-01-29 | Outpatient (CLI) | payer OTHER | END | disposition home or self-care (01) | LOC: YCHH 11:26 | PROVIDERS: ATTEND Family Medicine | DX: N39.0 Urinary tract infection, site not specified (principal); R30.0 Dysuria ==

== ENCOUNTER → 2017-02-01 | Outpatient (CLI) | payer OTHER | END | disposition home or self-care (01) | LOC: YCHH 17:25 | PROVIDERS: ATTEND Family Medicine | DX: D53.9 Nutritional anemia, unspecified (principal) ==

== ENCOUNTER → 2017-02-17 | Outpatient (CLI) | payer MEDICARE | END | disposition home or self-care (01) | LOC: YCHH 13:38 | PROVIDERS: ATTEND Family Medicine | DX: R30.0 Dysuria (principal) ==

== ENCOUNTER → 2017-03-19 | Outpatient (CLI) | payer OTHER | END | disposition home or self-care (01) | LOC: YCHH 17:54 | PROVIDERS: ATTEND Family Medicine | DX: N39.0 Urinary tract infection, site not specified (principal) ==

== ENCOUNTER → 2017-03-27 | Outpatient (CLI) | payer MEDICARE | END | disposition home or self-care (01) | LOC: YCHH 13:36 | PROVIDERS: ATTEND Family Medicine | DX: D53.9 Nutritional anemia, unspecified (principal) ==

== ENCOUNTER → 2017-03-28 | Outpatient (CLI) | payer MEDICARE | LOC: YCHH 16:26 | PROVIDERS: ATTEND Family Medicine | DX: N39.0 Urinary tract infection, site not specified (principal) ==

== ENCOUNTER → 2017-04-05 | Outpatient (CLI) | payer MEDICARE, OTHER ==
--- NOTE | 2017-04-08 18:20 | CT ---
EXAM DESCRIPTION: Chest w/o Contrast CLINICAL HISTORY: 81 years Female, COPD, PULMONARY EMBOLISM COMPARISON: January 04, 2017 TECHNIQUE: Axial imaging. No IV contrast. Sagittal and coronal reconstruction FINDINGS: Cannot assess for pulmonary embolus since this is a noncontrast study. Ascending aorta remains dilated measuring 5 cm transverse, not significantly changed. Coronary artery calcifications are again seen. 2.8 cm right hilar node is stable. Stable pleural parenchymal change right posterior subapical region. Lung parenchyma is otherwise clear. No pleural effusions Subdiaphragmatically, incidental dilated intrahepatic biliary ducts are again seen. IMPRESSION: 1. Stable dilatation ascending aorta, 5 cm transverse 2. Pleural parenchymal change at posterior subapical region, stable 3. 2.8 cm right hilar node 4. Incidental coronary artery calcifications 5. No significant change compared with January 04, 2017 examination Electronically signed by: Brock Bolton 04/08/2017 6:18 PM CDT
== END | disposition home or self-care (01) ==
LOC: CT 11:10
PROVIDERS: ATTEND Internal Medicine Pulmonary Disease
DX: J44.9 Chronic obstructive pulmonary disease, unspecified (principal); I26.99 Other pulmonary embolism without acute cor pulmonale

== ENCOUNTER → 2017-04-11 | Outpatient (CLI) | payer OTHER | END | disposition home or self-care (01) | LOC: YCHH 12:41 | PROVIDERS: ATTEND Family Medicine | DX: N39.0 Urinary tract infection, site not specified (principal) ==

== ENCOUNTER → 2017-04-12 | Outpatient (CLI) | payer OTHER | END | disposition home or self-care (01) | LOC: YCHH 15:47 | PROVIDERS: ATTEND Family Medicine | DX: N39.0 Urinary tract infection, site not specified (principal) ==

== ENCOUNTER → 2017-04-16 | Outpatient (CLI) | payer OTHER, MEDICARE | END | disposition home or self-care (01) | LOC: YCHH 14:11 | PROVIDERS: ATTEND Family Medicine | DX: D53.9 Nutritional anemia, unspecified (principal); R17 Unspecified jaundice ==

== ENCOUNTER → 2017-05-17 | Outpatient (CLI) | payer OTHER | END | disposition home or self-care (01) | LOC: YCHH 15:31 | PROVIDERS: ATTEND Family Medicine | DX: N39.0 Urinary tract infection, site not specified (principal) ==

== ENCOUNTER → 2017-05-28 | Outpatient (CLI) | payer OTHER | END | disposition home or self-care (01) | LOC: YCHH 13:53 | PROVIDERS: ATTEND Family Medicine | DX: N39.0 Urinary tract infection, site not specified (principal) ==

== ENCOUNTER 2017-06-24 22:28 | Inpatient (IN) | payer OTHER, MEDICARE ==
--- NOTE | 2017-06-24 22:54 | ED.PDOC ---
History of Present Illness - General Chief Complaint: Respiratory Problem Stated Complaint: SOB, fast heartrate Time Seen by Provider: 06/24/17 22:43 Source: patient, RN notes reviewed, Vital Signs reviewed, family - Daughter, EMS , skilled nursing records Exam Limitations: no limitations - History of Present Illness Initial Comments: Patient comes to ER via EMS with c/o SOB and tachycardia. She was started on Levaquin 2 days ago but is not improving. + productive cough. She also was found to have a UTI with culture results coming today. She has 2 different bacteria, Klebsiella and Enterococcus. The Klebsiella is only sensitive to Ertapenem, Imipenem and Tobramycin. She finished 7 days of Ertapenem on 06/07/17 for a UTI. Timing/Duration: days - 2 Severity: moderate Activities at Onset: none Possible Cause: occasional episodes - Hx of COPD, illness exposure Improving Factors: nothing Worsening Factors: movement Associated Symptoms: cough, weakness, wheezing Respiratory Risk Factors: exposure to illness Allergies/Adverse Reactions: Allergies NO KNOWN ALLERGY Allergy (Verified 06/24/17 22:56) Home Medications: Ambulatory Orders Albuterol Sulfate [Proair Hfa] 2 puff INH Q4H PRN 11/11/16 Amlodipine Besylate [Norvasc] 2.5 mg PO DAILY 11/11/16 Donepezil Hydrochloride [Aricept] 10 mg PO DAILY 11/11/16 Tiotropium [place] Monohydrate [Spiriva Handihaler] 1 puff INH DAILY 11/11/16 cloNAZepam [Klonopin] 0.5 mg PO BEDTIME 11/11/16 Apixaban [Eliquis] 5 mg PO BID 12/03/16 Vcgffjuuvc-Afceguybtejwm-Twzku [Butalbital/Acetaminophen/ 50-300-40 mg] 1 cap PO Q8H PRN 12/03/16 Fluticasone/Salmeterol 250/50 [Advair 250/50 Diskus] 1 puff INH BID 12/03/16 Guaifenesin [Mucinex] 600 mg PO BID 12/03/16 diphenhydrAMINE HCL [Benadryl] 25 mg PO DAILY PRN 12/03/16 Albuterol Sulfate Nebs [Proventil Nebs] 2.5 mg NEB RTQID 12/10/16 HYDROcodone 5MG/APAP 325MG [[place] 5/325] 1 ea PO Q4H PRN 12/10/16 Lisinopril 20 mg PO DAILY #0 12/10/16 Pantoprazole Tablet [Protonix] 40 mg PO DAILY@0630 12/10/16 Potassium Chloride Tab [K-Dur] 40 meq PO DAILYBK 12/10/16 HYDROcodone 10MG/APAP 325MG [[place] 10/325] 1 ea PO Q4H PRN 12/21/16 Nicotine Patch 14 mg [Habitrol Patch 14mg] 1 ea TD DAILY #30 12/21/16 Potassium Chloride Tab [Micro-K] 20 meq PO DAILYBK #30 capsule 12/21/16 QUEtiapine FUMARATE [Seroquel] 25 mg PO BID #60 tablet 12/21/16 Review of Systems - Review of Systems Constitutional: States: malaise. Denies: chills, fever EENTM: States: no symptoms reported Respiratory: States: cough, short of breath, wheezing Cardiology: States: no symptoms reported Genitourinary: States: see HPI Musculoskeletal: States: no symptoms reported Skin: States: no symptoms reported Neurological: States: no symptoms reported All other Systems: No Change from Baseline Past Medical History (General) - Patient Medical History Hx Seizures: No Hx Stroke: No Hx Asthma: Yes Hx of COPD: Yes Hx Congestive Heart Failure: Yes Hx Pacemaker: No Hx Hypertension: Yes Hx Diabetes: No Hx Cancer: No Hx Hepatitis C: No Hx MRSA: No - Vaccination History Hx Tetanus, Diphtheria Vaccination: No Hx Influenza Vaccination: No Hx Pneumococcal Vaccination: No - Social History Hx Tobacco Use: Yes - continue to smoke Hx Chewing Tobacco Use: No Hx Alcohol Use: No Hx Substance Use: No Hx Substance Use Treatment: No Hx Depression: No Hx Physical Abuse: No Hx Emotional Abuse: No Hx Suspected Abuse: No - Female History Patient : No Family Medical History - Family History Mother Family History: Unknown Living Status: Hx Family Asthma: Yes - copd-dad Physical Exam - Physical Exam General Appearance: Lethargic, Ill Appearing, Well Developed, Well Groomed, Well Nourished Neck: supple, normal inspection Respiratory: no respiratory distress, crackles - Throughout, rales, wheezing Cardiovascular/Chest: no gallop, no murmur, tachycardia Gastrointestinal/Abdominal: normal bowel sounds, non tender, soft, no organomegaly, no pulsatile mass Neurologic: normal mood/affect, disoriented x 3 - has dementia Skin Exam: normal color, warm/dry Progress - Results/Orders Results/Orders: 06/24/17 23:01 Sodium Chloride 0.9% 1000ML [Ns 1000 ml] 1,000 ml IVS .QD 06/24/17 23:05 BLOOD CULTURE Stat 06/24/17 23:24 LACTIC ACID Stat 06/24/17 23:29 ED Intent to Admit Routine Laboratory Results - last 24 hr 06/24/17 06/24/17 23:00 23:00 WBC 15.2 H RBC 3.74 L Hgb 11.0 L Hct 33.6 L MCV 90.0 MCH 29.4 MCHC 32.6 L RDW 16.8 H Plt Count 295 MPV 7.8 Absolute Neuts (auto) 13.40 H Absolute Lymphs (auto) 0.70 L Absolute Monos (auto) 1.10 H Absolute Eos (auto) 0.00 Absolute Basos (auto) 0.10 Neutrophils % 87.9 H Lymphocytes % 4.4 L Monocytes % 7.3 Eosinophils % 0.0 L Basophils % 0.4 Sodium 136 Potassium 2.6 L Chloride 94 L Carbon Dioxide 32 H Anion Gap 12.6 BUN 24 H Creatinine 0.69 BUN/Creatinine Ratio 34.8 H Random Glucose 104 Serum Osmolality 276.3 Calcium 11.4 H Total Bilirubin 0.6 AST 34 ALT 27 Alkaline Phosphatase 91 Serum Total Protein 6.3 L Albumin 2.5 L Globulin 3.8 H Albumin/Globulin Ratio 0.7 L - EKG/XRAY/CT XRAY: chest - RLL opacities concerning for pneumonia per Rad Departure - Departure Clinical Impression: Pneumonia of right lower lobe due to infectious organism Urinary tract infection Qualifiers: Urinary tract infection type: acute cystitis Hematuria presence: without hematuria Qualified Code(s): N30.00 - Acute cystitis without hematuria Time of Disposition: 23:28 Disposition: Admit Patient Condition: Poor Departure Forms: ED Discharge - Pt. Copy, Patient Portal Self Enrollment Referrals: Kiko Saunders III, MD [Primary Care Provider] - 1-2 Weeks Home Medications: Ambulatory Orders Albuterol Sulfate [Proair Hfa] 2 puff INH Q4H PRN 11/11/16 Amlodipine Besylate [Norvasc] 2.5 mg PO DAILY 11/11/16 Donepezil Hydrochloride [Aricept] 10 mg PO DAILY 11/11/16 Tiotropium [place] Monohydrate [Spiriva Handihaler] 1 puff INH DAILY 11/11/16 cloNAZepam [Klonopin] 0.5 mg PO BEDTIME 11/11/16 Apixaban [Eliquis] 5 mg PO BID 12/03/16 Ichfbzjfnm-Zbqbalhwxhpqw-Dkgca [Butalbital/Acetaminophen/ 50-300-40 mg] 1 cap PO Q8H PRN 12/03/16 Fluticasone/Salmeterol 250/50 [Advair 250/50 Diskus] 1 puff INH BID 12/03/16 Guaifenesin [Mucinex] 600 mg PO BID 12/03/16 diphenhydrAMINE HCL [Benadryl] 25 mg PO DAILY PRN 12/03/16 Albuterol Sulfate Nebs [Proventil Nebs] 2.5 mg NEB RTQID 12/10/16 HYDROcodone 5MG/APAP 325MG [[place] 5/325] 1 ea PO Q4H PRN 12/10/16 Lisinopril 20 mg PO DAILY #0 12/10/16 Pantoprazole Tablet [Protonix] 40 mg PO DAILY@0630 12/10/16 Potassium Chloride Tab [K-Dur] 40 meq PO DAILYBK 12/10/16 HYDROcodone 10MG/APAP 325MG [[place] 10/325] 1 ea PO Q4H PRN 12/21/16 Nicotine Patch 14 mg [Habitrol Patch 14mg] 1 ea TD DAILY #30 12/21/16 Potassium Chloride Tab [Micro-K] 20 meq PO DAILYBK #30 capsule 12/21/16 QUEtiapine FUMARATE [Seroquel] 25 mg PO BID #60 tablet 12/21/16 Decision To Admit - Decistion To Admit Decision to Admit Reason: Admit from ER Decision to Admit Date: 06/24/17 Decision to Admit Time: 23:24
--- NOTE | 2017-06-24 22:57 | RAD ---
Examination: XR CHEST 1 VIEW dated 06/24/2017 10:44 PM [facility] History: cough SOB Comparison: 04/05/2017 Technique: Frontal view of the chest Findings: Patchy right lower lobe airspace opacities. Left lung is clear. No pneumothorax or pleural effusion. Aortic atherosclerosis. Normal cardiac silhouette. Impression: Right lower lobe airspace opacities concerning for pneumonia. Follow-up chest radiograph after treatment is recommended to ensure resolution. Electronically signed by: Jonathan Moore MD 06/24/2017 10:56 PM [facility]
[2017-06-24] MEDS ORDERED: SODIUM CHLORIDE 0.9% 1000ML 1,000 ML IVS PRN (23:01)
[2017-06-24] MEDS ORDERED: KCL 40 MEQ/WATER FOR INJECTION 40 MEQ in PREMIX BAG 1 BAG IVPB ONE (23:30)
--- NOTE | 2017-06-24 23:53 | HP ---
SUPERVISING PHYSICIAN: Mauricio Phipps MD CHIEF COMPLAINT: Shortness of breath, decreased heart rate. HISTORY OF PRESENT ILLNESS: Ms. Vallejo presented to the Emergency Room via EMS with complaint of some shortness of breath and tachycardia. She was started on Levaquin two days previously and has not shown any improvement and is having a productive cough. She has also had a significant urinary tract infection in the past and was recently treated. Recent culture just completed yesterday showed she had two organisms present, an enterococcus and Klebsiella pneumoniae that was resistant to all but Primaxin and Invanz. She just recently was treated with Invanz and finished a 7 day course on 06/07/17 for a similar urinary tract infection. She does reside at [facility]. She has a significant history of chronic obstructive pulmonary disease. Her laboratory studies initially in the Emergency Department showed that she had a leukocytosis of 15,200 with hemoglobin 11, hematocrit 33.6 with a left shift. Chemistries showed she had a hypokalemia with potassium 2.6, elevated BUN of 24 , creatinine 0.69, calcium elevated at 11.4, albumin 2.5. Initially on presentation to the Emergency Department, the patient was satting 94% on nasal cannula with an initial heart rate of 141 with blood pressure 102/58 with respirations 20, saturation 94% again on nasal cannula at 2 liters. Lactic acid was within normal limits. Given the patient has a history of chronic obstructive pulmonary disease, chronic urinary tract infections and having to respond to treatment plan with multiple antibiotics and the patient showing a leukocytosis with radiographic study indicating a right lower lobe pneumonia, the patient is now going to be admitted to the Medical/Surgical Floor for definitive treatment and further evaluation. She was admitted in stable condition. PAST MEDICAL HISTORY: 1. Hypertension. Last echocardiogram as noted per review of records was in 2008 with ejection fraction of 65%. 2. Chronic urinary tract infection with highly resistant organisms. 3. Chronic obstructive pulmonary disease. 4. Osteoporosis. 5. 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 6. General anxiety disorder. 7. Tobacco abuse. 8. Left hip fracture in November of 2016. 9. History of pulmonary embolism after being treated for pneumonia at [facility] in 2017. PAST SURGICAL HISTORY: 1. Appendectomy in 1994. 2. Total abdominal hysterectomy with bilateral salpingo-oophorectomy for a benign fibroma of the left ovary. 3. Tubal ligation. 4. Left knee surgery in 1971. 5. Bilateral cataracts in 2008. 6. Cranio-orbit zygomatic skull based approach resection of tumor with pathology revealing a fragment of fibro connected and skeletal muscle tissue with distorted vasculature, suggestive of hemangioma in 2009. 7. Repair of left hip fracture with Gamma nail by Dr. Wilson in November 2016. HOME MEDICATIONS: 1. Erinn Intensive Relief cream applied externally as needed. 2. Lisinopril 40 mg daily. 3. Vitamin B complex 1 tablet daily. 4. Multivitamin 1 tablet daily. 5. FiberCon tablet 625 mg. 6. Spiriva Handihaler 1 puff daily. 7. Albuterol inhaler 1 puff q.4h. as needed. 8. Aricept 10 mg daily. 9. Klonopin 0.25 mg b.i.d. as needed. 10. Amlodipine 2.5 mg daily. 11. Proventil nebulizers 5 mg q.i.d. 12. Advair 250/50 Diskus 1 puff inhaled daily. ALLERGIES: NO KNOWN DRUG ALLERGIES. FAMILY HISTORY: Father at age 77 secondary to lung cancer and heart disease. Mother at age 92 from advanced age. SOCIAL HISTORY: The patients is a retired [employer] employee. She is , has 4 children. She has been a current smoker as recently as this year and has been so since age 17. She drinks alcohol very infrequently and typically consumes vodka, but denies any illicit drug use. She currently resides at [facility]. REVIEW OF SYSTEMS: CONSTITUTIONAL: Notes general malaise, but denies any fevers or chills. HEENT: No reported headaches, visual disturbances, sore throat, nasal congestion. She does have a nonproductive cough. RESPIRATORY: History of longstanding chronic obstructive pulmonary disease with a nonproductive cough and some noted chest congestion and recent for upper respiratory infection in the last week. Positive for shortness of breath and wheezing. CARDIOVASCULAR: Denies chest pain. As per history of present illness, she has some tachycardia. No syncopal episodes. GENITOURINARY: Multiple urinary tract infections as noted in history of present illness. GASTROINTESTINAL: No complaints of nausea, vomiting, diarrhea or constipation. NEUROLOGIC: The patient does have a history of demential secondary to Alzheimer 's. Her son says she is at her baseline mental status. PHYSICAL EXAMINATION: VITAL SIGNS: Temperature 98.9. Pulse 141. Blood pressure 102/58. Respirations 20. Saturation 94% on 2 liters nasal cannula. Admission weight 52.3 kg. After admission to the Medical/Surgical Floor, pulse was noted to be 126 with blood pressure 107/73. Saturation 94% on nasal cannula at 2 liters. Respirations 20. GENERAL: On examination on the Medical/Surgical Floor, the patient is resting comfortably and appears to be in no acute distress. She does appear ill, but is is well-nourished and disoriented with dementia and is very gruff in demeanor , but is easily calmed down with family members. HEENT: Tympanic membranes clear bilaterally. Oropharynx is pink. Mucosal membranes dry. No lesions. NECK: Supple, nontender with full range of motion. No jugular venous distention noted. CHEST: Crackles and coarse breath sounds to the lateral posterior aspect on the right side. Left was fairly clear. There was very faint expiratory wheezing heard on the right, but no rales. CARDIOVASCULAR: Tachycardic rhythm, but regular with no murmurs, gallops, or rubs. ABDOMEN: Soft, nontender. Positive bowel sounds. EXTREMITIES: There is no cyanosis, clubbing or edema. NEUROLOGIC: Cranial nerves II-XII are grossly intact. Facial features are symmetrical. Extraocular movements are within normal limits. There is no nystagmus noted. She is disoriented times three and has a very coarse, gruff demeanor and is easily upset, but consoled by family members. LABORATORY: CBC shows leukocytosis of 15,200 with hemoglobin 11, hematocrit 32.6, platelet count 295,000. Differential does show a left shift. Chemistries show sodium 135, potassium 2.6, carbon dioxide elevated at 32, anion normal at 12, BUN elevated at 24, creatinine 0.69. Glucose 104. Lactic acid normal at 1.4. Calcium elevated at 1.4, but albumin 2.5. Liver functions all within normal limits. Urinalysis pending. MICROBIOLOGY: Urine culture pending. Influenza swab for A and B by PCR was negative for both A and B. Blood cultures pending. Sputum culture pending. Culture results from [facility] showed she had two isolates, one was an enterococcus subspecies and the second was a Klebsiella pneumoniae that was ESBL positive and highly resistant to all but carbapenems. However, the sensitivity did not cover meropenem. She also showed sensitivity to tobramycin and gentamicin. RADIOLOGY: Single view chest showed patchy right lower lobe airspace opacities concerning for pneumonia. Left lung was clear. There was no pneumothorax or pleural effusions noted. EKG pending at time of admission, but monitor showed regular rate and rhythm, but tachycardic at 110 to 120. ASSESSMENT: 1. Acute exacerbation of chronic obstructive pulmonary disease having failed to respond to outpatient treatment plan for treatment of pneumonia with Levaquin within the last week, concerning for a multidrug resistant presentation. She does reside at [facility] with the patient having been recently treated for an underlying urinary tract infection with Invanz. 2. Right lower lobe pneumonia as indicted on radiographic studies with concerns again for multidrug resistant organisms with the patient having leukocytosis at the time of admission. Likely a healthcare related pneumonia. 3. Tachycardia, possibly secondary to recent Levaquin administration with the patient being hemodynamically stable and no history of atrial fibrillation and also secondary to underlying dehydration and ongoing inflammatory response due to multiple infections to include urinary tract infection and pneumonia. 4. Chronic urinary tract infection failing to respond to outpatient treatment plan with multiple organisms identified on most recently culture on 06/24/17 at the [facility] showing an enterococcus species and a Klebsiella pneumoniae that was positive for Extended Spectrum Beta-Lactamase with sensitivity pattern showing a highly resistant species of Klebsiella and recent treatment for additional urinary tract infection with Invanz. 5. History of recent upper respiratory infection, acute bronchitis with treatment with Levaquin, having failed to respond to outpatient treatment plan. 6. Electrolyte imbalance to include a hypokalemia. 7. Hypercalcemia, possibly elevated secondary to dehydration, requiring close monitoring. 8. Dehydration as noted by elevated BUN, possibly contributing to increased heart rate. 9. Hypertension with last echocardiogram noted to be in 2008 with ejection fraction of 65%. 10. 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 11. General anxiety disorder. 12. Tobacco abuse. PLAN: The patient will be admitted to the Medical/Surgical Floor for initiation of treatment for a right lower lobe pneumonia with a high probability of a multidrug resistant organism versus atypical pneumonia. Therefore, we will start her on doxycycline as she is on Seroquel and she already has a rapid heart rate to prevent any further interactions between those two drugs as well as Zyvox for concerns for a methicillin-resistant Staphylococcus aureus and for treatment again for the healthcare acquired pneumonia along with a combination to treat the underlying urinary tract infection based on current sensitivity with Klebsiella pneumoniae that was reported as highly resistant, we will start her on Invanz. We will culture urine and sputum and await those results to further target antibiotic therapy. She will be on aggressive pulmonary hygiene with Xopenex treatments given that she is tachycardic. She will be on telemetry and will await a 12-lead. We will try a bolus of saline to help with heart rate and dehydration and continue with IV fluids with normal saline with 20 of potassium to run at 80 an hour. We will hold off on giving any steroids at this point as she was not having any significant wheezing and was in no respiratory distress. She will be on DVT prophylaxis per protocol. We will resume her home medications once those have been updated and verified from the [facility] and placed in the electronic medical records. We will anticipate length of stay to be at least two to three days, possibly longer depending on she progresses clinically. Of note is that [facility] currently as a high rate of influenza A, however, her influenza test was negative and she has been afebrile, so I will hold off on starting any antivirals. I will treat the hypokalemia with potassium and she received 40 mEq in the Emergency Room before admission. We will plan to repeat laboratory studies in the morning as well as chest x-ray. In regards to her hypercholesterolemia and low albumin, we will readdress this in the morning after she has had a chance to have fluids in anticipation of it being possibly elevated due to dehydration. She will be on telemetry for close monitoring. Until discharge, we will continue to monitor the patient closely and treat appropriately. #[id number] [facility] HOSPITALFernando
[2017-06-24] MEDS ORDERED: KCL 40 MEQ/WATER FOR INJECTION 100 ML IVPB ONE (23:59)
[2017-06-25] MEDS ORDERED: SODIUM CHLORIDE 0.9% (FLUSH) 10 ML SYG IV PRN (00:06)
[2017-06-25] MEDS ORDERED: SODIUM CHLORIDE 0.9% 500ML 500 ML IVS ONE (00:18)
[2017-06-25] MEDS: IV SET AND CAP CHANGE INJ INJ SCH (00:35)
[2017-06-25] MEDS ORDERED: SODIUM CHLORIDE 0.9% 250ML 250 ML ONE ×3 (01:12→19:26)
[2017-06-25] MEDS ORDERED: DOXYCYCLINE HYCLATE IV 100 MG VIAL IVPB ONE ×3 (01:13→19:27)
[2017-06-25] MEDS: DOXYCYCLINE HYCLATE IV 100 MG in SODIUM CHLORIDE 0.9% 250ML 250 ML IVPB SCH ×2 (01:16→12:09)
[2017-06-25] MEDS: KCL 20 MEQ/NS 1,000 ML IVS PRN ×2 (01:18→22:59)
[2017-06-25] MEDS ORDERED: LINEZOLID IV 600 MG in PREMIX BAG 1 BAG IVPB SCH (01:30)
[2017-06-25] MEDS ORDERED: ERTAPENEM 1 GM in SODIUM CHL 0.9% 50ML MIN-BAG+ 50 ML IVPB SCH (01:30)
[2017-06-25] MEDS ORDERED: LINEZOLID IV 300 ML IVPB ONE ×2 (02:10→16:08)
[2017-06-25] MEDS ORDERED: SODIUM CHL 0.9% 50ML MIN-BAG+ 50 ML IVPB ONE ×3 (02:11→19:23)
[2017-06-25] MEDS ORDERED: ERTAPENEM 1 GM VIAL ONE (02:11)
--- NOTE | 2017-06-25 02:54 | PCM.CORE ---
Physician DVT/VTE - Nurse DVT Assessment & Total Each Risk Factor Represents 3 Points: Age over 75 years, Hx of DVT/PE, Medical PT with Hx of NE, CHF, Severe infection/sepsis Each Risk Factor Represents 1 Point: Medical PT at Bed Rest, Hx of smoking past year Each Risk Factor is 1 Point: Serious Lung disease (pnemonia <1month, COPD, emphysema,etc) DVT Assessment Score: 12 - 5 or more Very High Risk Treatments: Early Ambulation *, Sequential Compression Device Pharmacological: Enoxaparin 40mg SQ Daily
[2017-06-25] MEDS: PANTOPRAZOLE SODIUM IV 40 MG VIAL IV SCH (06:21)
--- NOTE | 2017-06-25 06:40 | RAD ---
EXAM: Single view chest. INDICATION: Pneumonia. COMPARISON: Chest x-ray: 06/24/2017. FINDINGS: There is a right basilar airspace opacity. A small right pleural effusion is present. The left lung is clear. The heart size is stable. There is no pneumothorax. IMPRESSION: Right basilar airspace opacity, likely representing pneumonia. Electronically signed by: Angelo Lowry MD 06/25/2017 6:38 AM [facility] Workstation: [id number]
[2017-06-25] MEDS ORDERED: DONEPEZIL HCL 5 MG TAB ONE (07:08)
[2017-06-25] MEDS ORDERED: amLODIPine BESYLATE 5 MG TAB ONE (07:08)
[2017-06-25] MEDS ORDERED: ALBUTEROL SULFATE 2.5 MG/3 ML VIAL NEB SCH (08:30)
[2017-06-25] MEDS: BIFIDOBACTERIUM INFANTIS 4 MG CAP PO SCH ×3 (08:39→20:34)
[2017-06-25] MEDS: DONEPEZIL HCL 5 MG TAB PO SCH (08:39)
[2017-06-25] MEDS: ENOXAPARIN SODIUM 40 MG/0.4 ML SYG SUBCU SCH (08:39)
[2017-06-25] MEDS ORDERED: amLODIPine BESYLATE 5 MG TAB PO SCH (09:00)
[2017-06-25] MEDS: LEVALBUTEROL NEBS 1.25 MG/3 ML VIAL NEB SCH ×2 (09:08→16:04)
[2017-06-25] MEDS: FLUTICASONE/SALMETEROL 250/50 14 PUFF/17 GM INH INH SCH (09:45)
[2017-06-25] MEDS: TIOTROPIUM INHALER INH SCH (09:45)
[2017-06-25] MEDS: METOPROLOL TARTRATE 25 MG TAB PO SCH ×2 (11:43→17:30)
--- NOTE | 2017-06-25 12:24 | PN ---
DATE: 06/25/17 SUBJECTIVE: The patient is feeling much improved this morning compared to her admission last evening. Still with deep cough and difficulty sputum production. She is quite tachypneic and is tachycardic as well, and review of her telemetry shows an acute atrial fibrillation with rapid ventricular response. She was started on multiple antibiotics last evening which are now adjusted to Merrem, Doxycycline and Zyvox. It is of note that she has been in [facility] until recently where she is receiving ongoing care home care. OBJECTIVE: Temperature 97.4, pulse is up to 124, blood pressure 108/74, pulse oximetry up to 99% nasal cannula to be adjusted down as required. She still has some rales, especially in the right base upon deep inspirations and is encouraged to continue with deep inspiratory efforts. She is currently receiving postural drainage and percussion to assist with secretion control. HEART: Tones are rapid and irregular. Unable to get a urine specimen until a straight cath was used on current orders and sent to the lab. Awaiting sputum collection as well. Blood cultures are pending. LABORATORY: Laboratory this morning shows white count 13,000, hemoglobin has dropped from 11 to 9.9 with 86% neutrophils. Chemistry shows potassium is up from 2.6 to 3, BUN 19, creatinine 0.56, glucose 121, calcium 10.4. TSH of 3.05. Urinalysis does show hematuria, pyuria, bacteriuria and proteinuria with cultures pending. Blood cultures are negative thus far and Influenza A and B is negative as well. RADIOLOGY: Chest x-ray this morning shows significant right lower lobe infiltrate suggesting pneumonia process to be followed closely. ASSESSMENT: 1. Acute right lower lobe pneumonia requiring vigorous antibiotics because of her residing in a care home facility and with a past history of multiple organisms with resistance on urinary tract infections. 2. Acute exacerbation of chronic obstructive pulmonary disease requiring bronchodilators, antibiotic coverage as well as bronchial hygiene treatments. 3. Urinary tract infection started on multiple antibiotics because of the history of multiple drug resistance recently awaiting culture results. 4. Acute atrial fibrillation with rapid ventricular response no doubt contributing to some of her disability and requiring rate control at this time with introduction of beta blockade. Because of low blood pressure, some of her antihypertensive medicines are being held as observation continues. If blood pressure remains low, may require digitalization to assist with rate control. 5. Chronic recurring urinary tract infections with Klebsiella pneumoniae and Escherichia coli with an extended spectrum beta lactonase presentation awaiting cultures. 6. Hypokalemia. 7. Hypercalcemia. 8. Moderate dehydration with elevated BUN showing some improvement. 9. History of hypertension yet now with low blood pressure possibly related to the acute atrial fibrillation with rapid ventricular response, but will also moderate and observe and adjust medications accordingly. 10. 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 11. General anxiety disorder. 12. Chronic tobacco abuse. PLAN: Will continue with the current treatment course to include Meropenem, Doxycycline and Zyvox, and continue to observe clinical response. Started on Metoprolol tartrate 25 mg twice a day and observe and adjust dosing accordingly to assist with rate control and hopefully returning to normal sinus rhythm with telemetry to continue. Discussed with the family. #[id number] KERRY
[2017-06-25] MEDS ORDERED: MEROPENEM 1 GM VIAL IVPB ONE ×2 (14:27→19:23)
[2017-06-25] MEDS: MEROPENEM 1 GM in SODIUM CHL 0.9% 50ML MIN-BAG+ 50 ML IVPB SCH ×2 (14:31→22:50)
[2017-06-25] MEDS: LINEZOLID IV 600 MG in PREMIX BAG 1 BAG IVPB SCH (16:11)
[2017-06-25] MEDS: LEVALBUTEROL NEBS 1.25 MG/3 ML VIAL NEB PRN (21:00)
[2017-06-25] MEDS: ACETAMINOPHEN 325 MG TAB PO PRN (23:19)
[2017-06-25] MEDS: TEMAZEPAM 15 MG CAP PO PRN (23:46)
[2017-06-26] MEDS: DOXYCYCLINE HYCLATE IV 100 MG in SODIUM CHLORIDE 0.9% 250ML 250 ML IVPB SCH (00:15)
[2017-06-26] MEDS ORDERED: ERTAPENEM 1 GM in SODIUM CHL 0.9% 50ML MIN-BAG+ 50 ML IVPB SCH (03:00)
[2017-06-26] MEDS ORDERED: LINEZOLID IV 300 ML IVPB ONE ×3 (04:10→19:57)
[2017-06-26] MEDS ORDERED: SODIUM CHL 0.9% 50ML MIN-BAG+ 50 ML IVPB ONE ×2 (04:10→18:36)
[2017-06-26] MEDS ORDERED: MEROPENEM 1 GM VIAL IVPB ONE ×3 (04:10→18:36)
[2017-06-26] MEDS: LINEZOLID IV 600 MG in PREMIX BAG 1 BAG IVPB SCH ×2 (04:19→16:34)
[2017-06-26] MEDS: PANTOPRAZOLE SODIUM IV 40 MG VIAL IV SCH (06:23)
[2017-06-26] MEDS: MEROPENEM 1 GM in SODIUM CHL 0.9% 50ML MIN-BAG+ 50 ML IVPB SCH ×2 (06:53→18:41)
[2017-06-26] MEDS: FLUTICASONE/SALMETEROL 250/50 14 PUFF/17 GM INH INH SCH (08:23)
[2017-06-26] MEDS: TIOTROPIUM INHALER INH SCH (08:23)
[2017-06-26] MEDS: LEVALBUTEROL NEBS 1.25 MG/3 ML VIAL NEB SCH ×4 (08:24→23:55)
[2017-06-26] MEDS: BIFIDOBACTERIUM INFANTIS 4 MG CAP PO SCH ×3 (08:54→21:09)
[2017-06-26] MEDS: METOPROLOL TARTRATE 25 MG TAB PO SCH ×2 (08:54→16:43)
[2017-06-26] MEDS: DONEPEZIL HCL 5 MG TAB PO SCH (08:54)
[2017-06-26] MEDS: ENOXAPARIN SODIUM 40 MG/0.4 ML SYG SUBCU SCH (08:55)
[2017-06-26] MEDS ORDERED: POTASSIUM CHLORIDE 20 MEQ TAB ONE (12:33)
[2017-06-26] MEDS: DOXYCYCLINE HYCLATE CAP 100 MG CAP PO SCH ×2 (12:34→21:09)
--- NOTE | 2017-06-26 13:13 | PN ---
DATE: 06/26/17 SUBJECTIVE: The patient was awake a lot of last night and now is somewhat sleepy though is able to answer questions even though her eyes are closed. She states she feels a little better today than yesterday. She is not coughing as much, but still has secretions to clear from the back of her throat. She now continues on the second day of parenteral antibiotic therapy for a significant pneumonia state. Acute atrial fibrillation is evident and she is now on rate control with metoprolol tartrate, showing much improved rate though still in atrial fibrillation with Lovenox anticoagulation at the present time. Final decision for home anticoagulation to be made prior to the time of discharge. OBJECTIVE: VITAL SIGNS: Afebrile. Pulse 78. Blood pressure 100/69. Pulse oximetry 99% on 2 liters nasal cannula to be adjusted accordingly. LUNG Some rhonchi which clear a little bit with her clearing secretions. She is eating a little better today than yesterday. Family comes and goes in her ongoing care. HEART: Irregular. ABDOMEN: Soft with a bowel movement apparently she states recently. EXTREMITIES: No pedal edema. LABORATORY: Potassium is now up to 3.1 with supplementation while BUN is 13, sugar 136, blood count 10, white count 10,500 down from 15,200. Urinalysis shows hematuria, pyuria and bacteruria, yet cultures showed normal margarita at 24 hours with specimen having been obtained well after the initiation of antibiotic. Sputum also was obtained later showing normal margarita. Blood cultures are negative at this time. Repeat chest x-ray is scheduled in the morning. ASSESSMENT: 1. Acute right lower lobe pneumonia requiring vigorous antibiotics because of her residing in a longterm facility and with a past history of multiple organisms with resistance on urinary tract infections. 2. Acute exacerbation of chronic obstructive pulmonary disease requiring bronchodilators, antibiotic coverage as well as bronchial hygiene treatments. 3. Urinary tract infection started on multiple antibiotics because of the history of multiple drug resistance recently awaiting culture results. 4. Acute atrial fibrillation with rapid ventricular response no doubt contributing to some of her disability and requiring rate control at this time with introduction of beta blockade. Because of low blood pressure, some of her antihypertensive medicines are being held as observation continues. If blood pressure remains low, may require digitalization to assist with rate control. 5. Chronic recurring urinary tract infections with Klebsiella pneumoniae and Escherichia coli with an extended spectrum beta lactonase presentation awaiting cultures. 6. Hypokalemia. 7. Hypercalcemia. 8. Moderate dehydration with elevated BUN showing some improvement. 9. History of hypertension yet now with low blood pressure possibly related to the acute atrial fibrillation with rapid ventricular response, but will also moderate and observe and adjust medications accordingly. 10. 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 11. General anxiety disorder. 12. Chronic tobacco abuse. PLAN: We will continue with antibiotic therapy. Repeat chest x-ray in the morning with some labs, especially with the low potassium. Continue to observe the rate control of the atrial fibrillation with the metoprolol medication. Request physical therapy evaluation for strengthening and safety in ambulation. Try an ambulation study to evaluate for desaturation potential. The patient when stable will be able to return to [facility]. She is now on Zyvox and Merrem and the doxycycline is changed from parenteral to p.o. A decision regarding anticoagulation as atrial fibrillation continues to be made at the time of discharge or before. [facility][id number] [facility]ITAL[facility]ern[facility]
[2017-06-26] MEDS: LEVALBUTEROL NEBS 1.25 MG/3 ML VIAL NEB PRN ×2 (14:00→20:41)
[2017-06-26] MEDS: ACETAMINOPHEN 325 MG TAB PO PRN (14:21)
[2017-06-26] MEDS: POTASSIUM CHLORIDE 10 MEQ TAB PO SCH ×2 (15:00→19:00)
[2017-06-26] MEDS: KCL 20 MEQ/NS 1,000 ML IVS PRN (20:15)
[2017-06-26] MEDS: TEMAZEPAM 15 MG CAP PO PRN (21:09)
[2017-06-27] MEDS ORDERED: SODIUM CHL 0.9% 50ML MIN-BAG+ 50 ML IVPB ONE ×2 (02:45→16:27)
[2017-06-27] MEDS ORDERED: PANTOPRAZOLE SODIUM TAB 40 MG PO ONE (02:46)
[2017-06-27] MEDS ORDERED: MEROPENEM 1 GM VIAL IVPB ONE ×2 (02:46→16:28)
[2017-06-27] MEDS: LINEZOLID IV 600 MG in PREMIX BAG 1 BAG IVPB SCH ×2 (04:24→16:37)
[2017-06-27] MEDS: PANTOPRAZOLE SODIUM TAB 40 MG PO SCH (06:07)
[2017-06-27] MEDS: MEROPENEM 1 GM in SODIUM CHL 0.9% 50ML MIN-BAG+ 50 ML IVPB SCH ×2 (06:49→19:29)
--- NOTE | 2017-06-27 06:54 | RAD ---
EXAM DESCRIPTION: Chest,1 View CLINICAL HISTORY: RLL Pneumonia COMPARISON: 06/25/2017 FINDINGS: Single frontal view of the chest. Atherosclerotic calcification aortic arch. Cardiomegaly. Interval increase in bilateral pleural effusions now moderate on the right and small and the left with bibasilar airspace opacities. No pneumothorax. No new osseous abnormalities. Upper abdominal soft tissues are unremarkable. IMPRESSION: 1. Interval increase in now moderate right and small left pleural effusions with persistent bibasilar opacities. Electronically signed by: Jose Alberto Snyder 06/27/2017 6:53 AM [employer]ION [employer] LENS TECHNICIAN
[2017-06-27] MEDS: POTASSIUM CHLORIDE 10 MEQ TAB PO SCH ×2 (07:44→17:55)
[2017-06-27] MEDS: METOPROLOL TARTRATE 25 MG TAB PO SCH ×2 (07:44→17:55)
[2017-06-27] MEDS: FLUTICASONE/SALMETEROL 250/50 14 PUFF/17 GM INH INH SCH (08:04)
[2017-06-27] MEDS: TIOTROPIUM INHALER INH SCH (08:04)
[2017-06-27] MEDS: LEVALBUTEROL NEBS 1.25 MG/3 ML VIAL NEB SCH ×2 (08:04→16:04)
[2017-06-27] MEDS: ENOXAPARIN SODIUM 40 MG/0.4 ML SYG SUBCU SCH (09:52)
[2017-06-27] MEDS: BIFIDOBACTERIUM INFANTIS 4 MG CAP PO SCH ×3 (09:52→20:38)
[2017-06-27] MEDS: DONEPEZIL HCL 5 MG TAB PO SCH (09:52)
[2017-06-27] MEDS: DOXYCYCLINE HYCLATE CAP 100 MG CAP PO SCH ×2 (09:52→20:38)
[2017-06-27] MEDS ORDERED: FUROSEMIDE INJ 40 MG/4 ML VIAL IV ONE (12:14)
[2017-06-27] MEDS ORDERED: LINEZOLID IV 300 ML IVPB ONE (16:28)
--- NOTE | 2017-06-27 20:26 | PN ---
DATE: 06/27/17 SUPERVISING PHYSICIAN: Jonathan Cardona MD SUBJECTIVE: The patient this morning is a little bit more confused. She sounds fairly congested from previous days. She remains in good rate control in regards to atrial fibrillation and she remains afebrile. OBJECTIVE: VITAL SIGNS: Temperature 97.7, pulse 68, blood pressure 136/77, respirations 20, satting 88% on room air increasing to 97% on nasal cannula at 2 liters. I's and O's are not well documented as she is incontinent. She has had 2490 in. Weight is 57.6 kg which is up from admission initially from 52.3. CHEST: Notable rhonchi throughout even after clearing her secretions with some obvious mild distress this morning. HEART: Regular rate and rhythm. ABDOMEN: Soft, non-tender. Positive bowel sounds. EXTREMITIES: No clubbing, cyanosis or edema. NEUROLOGIC: She remains pleasantly confused and cooperative. No obvious neurological deficits are noted. LABORATORY: White count is down to 10,500 with hemoglobin 10, hematocrit 30.7, platelet count 258,000. Differential continues to show a left shift. Chemistries show normal electrolytes this morning with potassium 3.9, BUN 11, creatinine 0.64, calcium 10.8. BNP was 550. MICROBIOLOGY: Sputum culture final at 48 hours showed normal margarita. Urine culture final showed no growth at 48 hours. Blood cultures remain negative at 48 hours. RADIOLOGY: Repeat chest x-ray today per radiology interpretation shows interval increase in now moderate right and small left pleural effusion with persistent bibasilar opacities. ASSESSMENT: 1. Acute right lower lobe pneumonia requiring ongoing vigorous antibiotics due to the fact that she resides at a [facility] facility with a past history of multiple organisms resistant on urinary tract infection. 2. Acute exacerbation of chronic obstructive pulmonary disease requiring bronchodilators and antibiotic coverage as well as bronchial hygiene treatments. 3. Urinary tract infection having been started on multiple antibiotics due to her history of multiple drug resistant bugs awaiting with final culture results at this point showing no growth. 4. Acute atrial fibrillation with initial rapid ventricular response showing improvement with beta blockade with pressure being well controlled on antihypertensives with the patient having some pulmonary congestion with an elevated BNP with no mention of history of congestive heart failure likely related to ongoing fluids and previous atrial fibrillation onset with rapid ventricular response. 5. Chronic recurring urinary tract infection with Klebsiella pneumoniae and Escherichia coli with an extended spectrum beta lactonase presentation. 6. Hypokalemia, improved with replacement. 7. Hypercalcemia, persistent. 8. Mild dehydration initially showing an elevated BUN, improved now showing some mild fluid overload with an elevated BNP. 9. History of hypertension with a consistently low blood pressure related to her acute atrial fibrillation with rapid ventricular response with ongoing medication adjustments. 10. 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 11. General anxiety disorder. 12. Chronic tobacco abuse. PLAN: Given the changes in her x-ray today with the ongoing effusion and the fact that she sounds somewhat wet, I will go ahead and give her a dose of Lasix 40 mg a day. Will continue with the rest of the treatments for now to include Doxycycline p.o., Linezolid and Merrem with intent to deescalate medications starting tomorrow. She will continue on aggressive pulmonary hygiene. She remains on the beta rohan. We still need to make a decision on anticoagulation as the atrial fibrillation prior to discharge. Will plan to reevaluate in the morning with repeat x-ray and laboratory studies to include a BNP. Anticipate hopefully discharging later tomorrow back to [facility]. Until then, will continue to monitor and treat appropriately. Dr. Russell was available for consultation. [facility][id number] [facility]
[2017-06-27] MEDS: TEMAZEPAM 15 MG CAP PO PRN (20:38)
[2017-06-27] MEDS: KCL 20 MEQ/NS 1,000 ML IVS PRN (22:07)
[2017-06-28] MEDS: IV SET AND CAP CHANGE INJ INJ SCH (00:10)
[2017-06-28] MEDS ORDERED: LINEZOLID IV 300 ML IVPB ONE (00:20)
[2017-06-28] MEDS ORDERED: MEROPENEM 1 GM VIAL IVPB ONE (00:20)
[2017-06-28] MEDS ORDERED: SODIUM CHL 0.9% 50ML MIN-BAG+ 50 ML IVPB ONE (00:20)
[2017-06-28] MEDS: LEVALBUTEROL NEBS 1.25 MG/3 ML VIAL NEB SCH ×3 (00:50→16:20)
[2017-06-28] MEDS: LINEZOLID IV 600 MG in PREMIX BAG 1 BAG IVPB SCH (04:14)
[2017-06-28] MEDS: MEROPENEM 1 GM in SODIUM CHL 0.9% 50ML MIN-BAG+ 50 ML IVPB SCH (07:06)
[2017-06-28] MEDS: PANTOPRAZOLE SODIUM TAB 40 MG PO SCH ×2 (07:10→07:20)
--- NOTE | 2017-06-28 07:53 | RAD ---
EXAM DESCRIPTION: Chest, single view CLINICAL HISTORY: Pneumonia FINDINGS/ IMPRESSION: Comparison 06/27/2017 Cardiomegaly. Vascular congestion. Increased interstitial markings consistent with edema similar to previous study. Moderate right and small left pleural effusion. Opacity in the lung bases similar, compatible with atelectasis and/or infiltrate Electronically signed by: Mauricio Vaz MD 06/28/2017 7:52 AM INFORMATION SYSTEMS SECURITY MANAGER
[2017-06-28] MEDS: FLUTICASONE/SALMETEROL 250/50 14 PUFF/17 GM INH INH SCH (08:05)
[2017-06-28] MEDS: TIOTROPIUM INHALER INH SCH (08:05)
[2017-06-28] MEDS: METOPROLOL TARTRATE 25 MG TAB PO SCH ×2 (08:47→18:01)
[2017-06-28] MEDS: DOXYCYCLINE HYCLATE CAP 100 MG CAP PO SCH ×2 (08:48→20:49)
[2017-06-28] MEDS: DONEPEZIL HCL 5 MG TAB PO SCH (08:48)
[2017-06-28] MEDS: ENOXAPARIN SODIUM 40 MG/0.4 ML SYG SUBCU SCH (08:48)
[2017-06-28] MEDS: POTASSIUM CHLORIDE 10 MEQ TAB PO SCH ×2 (08:48→18:01)
[2017-06-28] MEDS: BIFIDOBACTERIUM INFANTIS 4 MG CAP PO SCH ×3 (08:48→20:49)
[2017-06-28] MEDS: LEVALBUTEROL NEBS 1.25 MG/3 ML VIAL NEB PRN (13:30)
[2017-06-28] MEDS ORDERED: cefTRIAXone SODIUM 2 GM in SODIUM CHL 0.9% 100ML MINI-BAG 100 ML IVPB SCH (14:00)
[2017-06-28] MEDS ORDERED: SODIUM CHL 0.9% 100ML MINI-BAG 100 ML IVPB ONE (14:26)
[2017-06-28] MEDS: FUROSEMIDE 40 MG TAB PO SCH (14:37)
--- NOTE | 2017-06-28 18:22 | PN ---
DATE: 06/28/17 SUPERVISING PHYSICIAN: Jonathan Cardona M.D. SUBJECTIVE: The patient this morning is resting comfortably. She continues to sound fairly congested, even though she got some Lasix yesterday. She remains in good control of her heart rate and has not had any nausea or vomiting, diarrhea or any chest pains. She remains afebrile. OBJECTIVE: VITAL SIGNS: T max 98, pulse 66, blood pressure 148/55, respirations 20, satting 94% on room air. I's and O's again are not well measured due to incontinence. She has had 1860 in. Weight is down to 55.1 kg from 57.6 kg on the . CHEST: Lung sounds continue with some rhonchi more so on the left than the right with no obvious wheezing. HEART: Regular rate and rhythm. ABDOMEN: Soft, non-tender. Positive bowel sounds. EXTREMITIES: No clubbing, cyanosis or edema. NEUROLOGIC: She is alert and oriented to herself but confused as to location, but remains very pleasant at times. She is without any obvious neurological deficits. LABORATORY: White count today is up to 12,000 with hemoglobin 12, hematocrit 37.2, platelet count is 334,000. Differential continues to show a left shift. Chemistries show normal electrolytes with potassium 4.3, BUN 10, creatinine 0.6 , glucose 109, calcium 10.7. MICROBIOLOGY: Sputum culture showed normal margarita at 48 hours. Urine culture showed no growth at 48 hours. Blood culture remained negative at 3 days. RADIOLOGY: Repeat chest x-ray single view chest per radiology interpretation today shows cardiomegaly with vascular congestion, increased interstitial markings consistent with edema in similar previous exams on 06/27/17 with a moderate right and small left pleural effusion. Of mention is opacity in the lung bases compatible with atelectasis and/or infiltrate. ASSESSMENT: 1. Acute right lower lobe pneumonia initially requiring vigorous antibiotics due to the fact that she resides at a long-term home with the patient showing multiple resistant organisms on urinary tract infection showing improvement after being on Doxycycline, Linezolid and Merrem. 2. Acute exacerbation of chronic obstructive pulmonary disease requiring initiation of initially of bronchial hygiene with bronchodilators and continued antibiotic coverage. 3. Urinary tract infection having been started on multiple antibiotics in the past due to her history of multiple drug resistant bugs with final culture on admission showing no growth. 4. Acute atrial fibrillation with initial rapid ventricular response showing improvement with beta rohan and continued to have controlled ventricular rate with the patient now having some pulmonary congestion and an elevated BNP with her having no mention of previous congestive heart failure more likely to be related to previous ongoing fluids and her new onset atrial fibrillation with rapid ventricular response initially showing some improvement with Lasix. 5. Chronic recurring urinary tract infections with Klebsiella pneumoniae and Escherichia coli showing an extended spectrum lactonase presentation. 6. Hypokalemia, resolved. 7. Hypercalcemia, persistent. 8. Mild dehydration initially with an elevated BNP, although showing some mild fluid overload with an elevated BNP at this point but showing good response with loop diuretics. 9. History of hypertension with a good blood pressure on Acute Care with the patient having a new onset of atrial fibrillation initially with rapid ventricular response responding to medication adjustments with beta blockers. 10. 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 11. General anxiety disorder. 12. Chronic tobacco abuse. PLAN: Given that she continues to have some edema on the x-ray and clinically remains with some rhonchi with her having good response to Lasix previously, will continue with Lasix at 40 mg IV today. Will continue Doxycycline but discontinue the Linezolid and change the Meropenem to Rocephin in efforts to deescalate her medications with close observation and monitor clinical response. Again, she continues with aggressive pulmonary hygiene. She is on a beta rohan. I did talk to Dr. Saunders today about anticoagulation given the new onset of atrial fibrillation and he was in agreement that Eliquis was appropriate low dose given her advanced age and body size. Hopefully be able to discharge back to [facility] either tomorrow or Sunday. Until that point , will continue to monitor and treat appropriately. Dr. Russell was available for consultation. #[id number] [facility]
[2017-06-28] MEDS: TEMAZEPAM 15 MG CAP PO PRN (21:01)
[2017-06-29] MEDS: LEVALBUTEROL NEBS 1.25 MG/3 ML VIAL NEB SCH ×3 (00:10→16:20)
[2017-06-29] MEDS: LEVALBUTEROL NEBS 1.25 MG/3 ML VIAL NEB PRN (04:22)
[2017-06-29] MEDS: PANTOPRAZOLE SODIUM TAB 40 MG PO SCH (06:12)
[2017-06-29] MEDS: FLUTICASONE/SALMETEROL 250/50 14 PUFF/17 GM INH INH SCH (07:18)
[2017-06-29] MEDS: TIOTROPIUM INHALER INH SCH (07:18)
[2017-06-29] MEDS: BIFIDOBACTERIUM INFANTIS 4 MG CAP PO SCH ×3 (08:13→20:28)
[2017-06-29] MEDS: DOXYCYCLINE HYCLATE CAP 100 MG CAP PO SCH ×2 (08:13→20:28)
[2017-06-29] MEDS: ENOXAPARIN SODIUM 40 MG/0.4 ML SYG SUBCU SCH (08:13)
[2017-06-29] MEDS: POTASSIUM CHLORIDE 10 MEQ TAB PO SCH ×2 (08:13→17:26)
[2017-06-29] MEDS: DONEPEZIL HCL 5 MG TAB PO SCH (08:13)
[2017-06-29] MEDS: METOPROLOL TARTRATE 25 MG TAB PO SCH ×2 (08:13→17:27)
[2017-06-29] MEDS: FUROSEMIDE 40 MG TAB PO SCH (08:13)
--- NOTE | 2017-06-29 09:04 | RAD ---
Study: Single Frontal View of the Chest. Indication:chf Comparison: June 28, 2017. Impression: Cardiomegaly. Thoracic aorta tortuous. Mild interstitial edema is improved compared to the prior with persistent prominence of left hilum. Continued follow-up recommended. Bibasilar consolidative changes are also slightly improved with small bilateral pleural effusions, right greater left. No pneumothorax. Osteopenia. If this is a new finding, DEXA scan recommended as well as evaluation for possible osteoporosis treatment. Electronically signed by: Sidney Wilson MD 06/29/2017 9:03 AM LENDING ACTIVITIES SUPERVISOR
--- NOTE | 2017-06-29 09:44 | PN ---
DATE: 06/29/17 SUPERVISING PHYSICIAN: Jonathan Cardona M.D. SUBJECTIVE: The patient this continues to have a significant wet cough and is unable to produce sputum with deep inspiratory effort and coughing. The lung sounds have failed to clear up. She has had good rate control with current medications. We switched her from Meropenem to Rocephin yesterday and her white count went back up and she continues to sound congested. There is a concern with her residing in the [facility] with the risk factors given her comorbidities and failure to respond after changing medications to Rocephin that she may have a Pseudomonas infection resulting in the pneumonia. Her vital signs remain stable and she has been afebrile. We did start her on some Lasix 48 hours previously and her x-ray fails to show any improvement as well as her lung sounds have failed to show any improvement as well. Again, there is concern that the origin of this may be a multidrug resistant organism or more likely a Pseudomonas species. OBJECTIVE: VITAL SIGNS: T max 98.7, pulse 62, blood pressure 130/68, respirations 20, saturation 98% on room air. I's and O's are not measured as she is incontinent. CHEST: Lung sounds remain coarse throughout, more so on the right than the left with some rhonchi but no wheezing. Breath sounds are diminished as well bilaterally. HEART: Regular rate and rhythm. ABDOMEN: Soft , non-tender. Positive bowel sounds. EXTREMITIES: No clubbing, cyanosis or edema. NEUROLOGIC: She remain alert and oriented to herself and location and continues to have some episodes of confusion but remains pleasant and is still without any neurological deficits. LABORATORY: White count today showed an increase in leukocytosis to 15,100 with a continued left shift. Hemoglobin and hematocrit are fairly stable being 11.4 and 35.9, platelet count to 312,000. Chemistries now show normal electrolytes with BUN 11, creatinine 0.64, serum osmolality 274, calcium elevated at 10.5, RADIOLOGY: Single view chest per radiology interpretation shows mild interstitial edema improved compared to previous exam with persistent prominence of the left hilum. There are bibasilar consolidative changes which are slightly improved with a small bilateral pleural effusion with right greater than left. ASSESSMENT: 1. Acute right lower lobe pneumonia requiring vigorous antibiotics due to the fact that she [facility] and has high risk factors for multiple resistant organisms as well as demonstrated on her previous urinary tract infection initially some improvement with Doxycycline, Linezolid and Merrem and now showing an increased leukocytosis and minimal clinical improvement after transitioning from Meropenem to Rocephin. Concerns are for Pseudomonas infection given that she does have a history of recent antibiotic usage and resides in a skilled unit and has shown increased leukocytosis after transitioning, again from Meropenem to Rocephin. 2. Acute exacerbation of chronic obstructive pulmonary disease requiring continuation of aggressive bronchial hygiene with bronchodilators with multiple antibiotic coverage .showing slow clinical improvement with concerns for a pseudomonal infection. 3. Urinary tract infection having previously been started on multiple antibiotics prior to admission showing multiple drug resistant organisms with culture on admission showing no growth. 4. New onset atrial fibrillation with initial rapid ventricular response showing improvement and good ventricular control with a beta rohan with the patient to be started on Eliquis at time of discharge. 5. Elevated BNP with no mention of history of congestive heart failure. Questionable sequelae of atrial fibrillation and new onset atrial fibrillation and rapid ventricular response showing minimal clinical improvement with initiation of Lasix. 6. Chronic recurring urinary tract infections noted to be with Klebsiella pneumoniae and Escherichia coli showing an extended spectrum lactonase presentation. 7. Hypokalemia, resolved with replacement. 8. Hypercalcemia, persistent, uncertain etiology. 9. Mild dehydration on admission but with an elevated BNP with concerns initially for some fluid overload but showing good response to loop diuretics but failure to show any significant improvement clinically.. 10. History of hypertension with normal blood pressures with patient having a new onset of atrial fibrillation currently on beta blockers.. 11. 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 12. General anxiety disorder. 13. Chronic tobacco abuse. PLAN: The patient in the last 24 hours has shown a worsening leukocytosis after being transitioned from Meropenem to Rocephin. Again, there is a concern that the origin of her pneumonia is likely a pseudomonal species given that she has had a history of multidrug resistant organisms and resides in a health care setting. Given those risk factors and the slow clinical response, will plan to change her back to Meropenem and reassess in the morning. She will need at least another 24 to 48 hours of hospitalization for continued parenteral antibiotics. Will continue with aggressive pulmonary hygiene and again encourage patient to produce her sputum show culture can be attempted. Once the patient is discharged, after talking to Dr. Saunders she will be started on Eliquis 2.5 mg daily given her age and body size. Again, hopefully to be able to discharge in the next 24 to 48 hours pending her clinical response and repeat laboratory studies. Until the, we will continue to monitor and treat appropriately. Dr. Russell is available for consultation. [facility][id number] [facility]
[2017-06-29] MEDS ORDERED: SODIUM CHL 0.9% 50ML MIN-BAG+ 50 ML IVPB ONE ×2 (09:46→19:55)
[2017-06-29] MEDS ORDERED: MEROPENEM 1 GM VIAL IVPB ONE ×2 (09:47→19:56)
[2017-06-29] MEDS: MEROPENEM 1 GM in SODIUM CHL 0.9% 50ML MIN-BAG+ 50 ML IVPB SCH ×2 (09:49→20:28)
[2017-06-29] MEDS: KCL 20 MEQ/NS 1,000 ML IVS PRN (19:36)
[2017-06-30] MEDS: LEVALBUTEROL NEBS 1.25 MG/3 ML VIAL NEB SCH ×3 (00:10→16:16)
[2017-06-30] MEDS: PANTOPRAZOLE SODIUM TAB 40 MG PO SCH (06:13)
--- NOTE | 2017-06-30 06:37 | RAD ---
Procedure: XR CHEST 1 VIEW Exam Date: 06/30/2017 Ordering Provider: Wesley Veliz NP Clinical Indication: pneumonia Comparison: 06/29/2017 Findings: Cardiomediastinal silhouette: Cardiomegaly Pulmonary vasculature : Unremarkable Aortic contour: Aortic calcification Focal lung consolidation: Bibasilar atelectasis and/or infiltrate. Pleural effusion: Small bilateral pleural effusions. Pneumothorax: None Bones and soft tissues: Stable Impression: 1. Bibasilar atelectasis and/or infiltrate with small bilateral pleural effusions. Electronically signed by: Gaston Worrell MD 06/30/2017 6:35 AM ACCOUNT MANAGEMENT ASSISTANT
[2017-06-30] MEDS: FLUTICASONE/SALMETEROL 250/50 14 PUFF/17 GM INH INH SCH (07:45)
[2017-06-30] MEDS: TIOTROPIUM INHALER INH SCH (07:45)
[2017-06-30] MEDS: POTASSIUM CHLORIDE 10 MEQ TAB PO SCH ×2 (08:25→18:19)
[2017-06-30] MEDS: METOPROLOL TARTRATE 25 MG TAB PO SCH ×2 (08:25→18:19)
[2017-06-30] MEDS ORDERED: SODIUM CHL 0.9% 50ML MIN-BAG+ 50 ML IVPB ONE ×2 (09:29→20:13)
[2017-06-30] MEDS ORDERED: MEROPENEM 1 GM VIAL IVPB ONE ×2 (09:30→20:13)
[2017-06-30] MEDS: MEROPENEM 1 GM in SODIUM CHL 0.9% 50ML MIN-BAG+ 50 ML IVPB SCH ×2 (09:47→20:40)
[2017-06-30] MEDS: DOXYCYCLINE HYCLATE CAP 100 MG CAP PO SCH ×2 (09:48→20:40)
[2017-06-30] MEDS: ENOXAPARIN SODIUM 40 MG/0.4 ML SYG SUBCU SCH (09:48)
[2017-06-30] MEDS: FUROSEMIDE 40 MG TAB PO SCH (09:48)
[2017-06-30] MEDS: DONEPEZIL HCL 5 MG TAB PO SCH (09:48)
[2017-06-30] MEDS: BIFIDOBACTERIUM INFANTIS 4 MG CAP PO SCH ×3 (09:48→20:40)
--- NOTE | 2017-06-30 12:49 | PN ---
DATE: 06/30/17 SUBJECTIVE: The patient is awake and alert, looking around and cooperative. Her appetite has also been improving. Still with a cough. Still has some difficulty with secretions and is encouraged to continue clearing them. OBJECTIVE: Afebrile, blood pressure 111/70, pulse oximetry 90% on room air. She is normally on oxygen at home. Weight is 51.3 kilos. Laboratory today shows white count up to 16,300 with 87% neutrophils, hemoglobin 11.1. Chemistries show some improvement in kidney function and electrolytes. Albumin is 2.1. Cultures showed no growth of blood, sputum and urine. Repeat chest x- ray was performed and shows some clearing of the significant right lower lobe infiltrate though still with some bibasilar atelectasis and small pleural effusions. ASSESSMENT: 1. Acute right lower lobe pneumonia requiring vigorous antibiotics due to the fact that she resides at a senior care home and has high risk factors for multiple resistant organisms as well as demonstrated on her previous urinary tract infection initially some improvement with Doxycycline, Linezolid and Merrem and now showing an increased leukocytosis and minimal clinical improvement after transitioning from Meropenem to Rocephin. Concerns are for Pseudomonas infection given that she does have a history of recent antibiotic usage and resides in a skilled unit and has shown increased leukocytosis after transitioning, again from Meropenem to Rocephin. 2. Acute exacerbation of chronic obstructive pulmonary disease requiring continuation of aggressive bronchial hygiene with bronchodilators with multiple antibiotic coverage .showing slow clinical improvement with concerns for a pseudomonal infection. 3. Urinary tract infection having previously been started on multiple antibiotics prior to admission showing multiple drug resistant organisms with culture on admission showing no growth. 4. New onset atrial fibrillation with initial rapid ventricular response showing improvement and good ventricular control with a beta rohan with the patient to be started on Eliquis at time of discharge. 5. Elevated BNP with no mention of history of congestive heart failure. Questionable sequelae of atrial fibrillation and new onset atrial fibrillation and rapid ventricular response showing minimal clinical improvement with initiation of Lasix. 6. Chronic recurring urinary tract infections noted to be with Klebsiella pneumoniae and Escherichia coli showing an extended spectrum lactonase presentation. 7. Hypokalemia, resolved with replacement. 8. Hypercalcemia, persistent, uncertain etiology. 9. Mild dehydration on admission but with an elevated BNP with concerns initially for some fluid overload but showing good response to loop diuretics but failure to show any significant improvement clinically.. 10. History of hypertension with normal blood pressures with patient having a new onset of atrial fibrillation currently on beta blockers.. 11. 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 12. General anxiety disorder. 13. Chronic tobacco abuse. PLAN: Today is the 6th day of hospital stay. After stopping the Rocephin and switching back to Merrem to help cover for additional health care facility exposures, the patient has shown some clinical improvement even though her white count has elevated a little bit. Anticipate transfer back to [facility] tomorrow. Will continue with antibiotic coverage for a few more days and start Eliquis for her continued prophylaxis with the recent onset of acute atrial fibrillation noted. Anticipate further intermediate care to continue and encouraged outpatient physical therapy at the intermediate to increase her ability to care for herself safely. [facility][id number] [facility]ITAL[facility]
[2017-06-30] MEDS: KCL 20 MEQ/NS 1,000 ML IVS PRN (19:57)
[2017-07-01] MEDS: IV SET AND CAP CHANGE INJ INJ SCH (00:08)
[2017-07-01] MEDS: LEVALBUTEROL NEBS 1.25 MG/3 ML VIAL NEB SCH ×3 (00:14→20:24)
[2017-07-01] MEDS: PANTOPRAZOLE SODIUM TAB 40 MG PO SCH (06:18)
[2017-07-01] MEDS ORDERED: SODIUM CHL 0.9% 50ML MIN-BAG+ 50 ML IVPB ONE (06:27)
[2017-07-01] MEDS ORDERED: MEROPENEM 1 GM VIAL IVPB ONE (06:28)
[2017-07-01] MEDS: POTASSIUM CHLORIDE 10 MEQ TAB PO SCH (07:37)
[2017-07-01] MEDS: METOPROLOL TARTRATE 25 MG TAB PO SCH (07:37)
[2017-07-01] MEDS: FLUTICASONE/SALMETEROL 250/50 14 PUFF/17 GM INH INH SCH (08:22)
[2017-07-01] MEDS: TIOTROPIUM INHALER INH SCH (08:22)
[2017-07-01] MEDS: ENOXAPARIN SODIUM 40 MG/0.4 ML SYG SUBCU SCH (08:25)
[2017-07-01] MEDS: BIFIDOBACTERIUM INFANTIS 4 MG CAP PO SCH ×2 (08:25→16:49)
[2017-07-01] MEDS: DONEPEZIL HCL 5 MG TAB PO SCH (08:25)
[2017-07-01] MEDS: FUROSEMIDE 40 MG TAB PO SCH (08:25)
[2017-07-01] MEDS: DOXYCYCLINE HYCLATE CAP 100 MG CAP PO SCH (08:25)
[2017-07-01] MEDS: MEROPENEM 1 GM in SODIUM CHL 0.9% 50ML MIN-BAG+ 50 ML IVPB SCH (08:28)
[2017-07-01 13:16] VITALS: O2SAT 95
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
[2017-07-01 16:00] VITALS: BP 112/73; TEMP 96.8
[2017-07-01] MEDS ORDERED: APIXABAN 2.5 MG TAB PO ONE ×2 (16:00→16:48)
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
== END 2017-07-01 17:05 | DRG 190 ==
LOC: ER 22:28 → MS 23:52 → OBSVTOIN 23:52
PROVIDERS: ADMIT Nurse Practitioner Family; ATTEND Emergency Medicine
DX: J44.1 Chronic obstructive pulmonary disease with (acute) exacerbation (principal); J18.9 Pneumonia, unspecified organism; N30.00 Acute cystitis without hematuria; J44.0 Chronic obstructive pulmonary disease with (acute) lower respiratory infection; Z16.24 Resistance to multiple antibiotics; E86.0 Dehydration; Z16.12 Extended spectrum beta lactamase (ESBL) resistance; B96.1 Klebsiella pneumoniae [K. pneumoniae] as the cause of diseases classified elsewhere; B95.2 Enterococcus as the cause of diseases classified elsewhere; J20.9 Acute bronchitis, unspecified; E87.6 Hypokalemia; E83.52 Hypercalcemia; G30.9 Alzheimer's disease, unspecified; F02.80 Dementia in other diseases classified elsewhere, unspecified severity, without behavioral disturbance, psychotic disturbance, mood disturbance, and anxiety; F41.1 Generalized anxiety disorder; F17.290 Nicotine dependence, other tobacco product, uncomplicated; I48.91 Unspecified atrial fibrillation; I11.0 Hypertensive heart disease with heart failure; I50.9 Heart failure, unspecified; J45.909 Unspecified asthma, uncomplicated; Z79.899 Other long term (current) drug therapy; Z79.891 Long term (current) use of opiate analgesic

== ENCOUNTER → 2017-09-27 | Outpatient (CLI) | payer MEDICARE | LOC: GMAL 17:22 | PROVIDERS: ATTEND Family Medicine | DX: I50.9 Heart failure, unspecified (principal) ==

== ENCOUNTER → 2017-10-02 | Outpatient (CLI) | payer MEDICARE, OTHER ==
--- NOTE | 2017-10-02 15:20 | CT ---
EXAM DESCRIPTION: Chest w/Contrast : Computed Tomography. CLINICAL HISTORY: PULMONARY NODULE COMPARISON: Ultrasound of the abdomen, CT scan of the abdomen, and CT scan of the head today. CTA of the chest 01/04/2017. TECHNIQUE: Spiral-axial scans at 5.0 mm intervals through the lungs and thorax with IV contrast. 2.5 mm lung algorithm axial reconstructions. Coronal and sagittal 2.0 Mm reconstructions. No adverse reactions. Total Exam DLP: 206.78 mGy-cm. This exam was performed according to our departmental dose-optimization program which includes automated exposure control, adjustment of the mA and/or kV according to patient size and/or use of iterative reconstruction technique; to reduce radiation dose to as low as reasonably achievable (ALARA). Technically difficult study due to patient breathing moving due to mental status changes. FINDINGS: A large partially enhancing inhomogeneous mass is involving the right hilar nodes, subcarinal nodes and posterior mediastinal nodes and extending into the right lower lobe encasing the right lower lobe pulmonary arteries. Compression of some of the arteries is noted especially the posterior aspect of the right pulmonary artery branch distal to the origin of the right upper lobe pulmonary artery (series 4, image 31). In addition, intraluminal pulmonary artery filling defects are noted in branches to the right upper lobe right lower lobe and right middle lobe, most likely thrombus. Cannot exclude direct invasion of the vessels with tamponade by the mass. 2 x 2 cm mass pretracheal inferior to the left innominate vein. Also a 2 cm x 1.5 cm mass in the azygos region. No adenopathy in the left hilum or AP nodes. The right hilar tumor is also exhibiting mass effect on the right side pulmonary veins. Atherosclerotic changes in the proximal brachiocephalic vessels and thoracic aorta. Ectasia versus aneurysm of the ascending aortic arch. Lobulated mass with somewhat spiculated borders measuring 1.7 x 1.7 x 1.5 cm in the right upper lobe, medially above the hilum. Atelectasis in the right lower lobe. Possible small centrilobular emphysematous lesions in the bilateral upper lobes. Also pleural thickening abutting the left upper lobe. Honeycombing and groundglass infiltrate in the left lower lobe. Posterior pleural thickening abutting the left lower lobe. No definite mass. Minimal depression of the superior T12 and L1 endplates. 25% compression of the T7 superior endplate in 50% compression of the T6 vertebral body. Also minimal depression of the T9 superior endplate. Questionable soft tissue mass abutting the right T7 vertebral body and medial right upper lobe pleura. No rib or vertebral body destruction. IMPRESSION: 1. Large mass involving the right middle mediastinum and right hilum with compression and displacement of right pulmonary arteries and displacement of the right pulmonary veins. Pulmonary emboli also seen in some of the distal branches in all 3 lobes. Cannot exclude pulmonary artery tumor invasion with tamponade. Enlarged lymph nodes in the pretracheal region and azygous space 2. 1.7 x 1.7 cm lobulated mass medial right upper lobe superior to the right hilum. Atelectasis right lower lobe. Infiltrate with groundglass process and honeycombing in the left lower lobe. Compression deformities and endplate changes in the thoracic spine are stable since the prior study. Right T7 paravertebral mass is new since the prior study, and could represent a metastasis. CRITICAL COMMUNICATION: The critical value was discussed directly by phone with Dr. Kiko Saunders at approximately 1510 hours, on 10/02/2017. Electronically signed by: Mahesh Frausto MD 10/02/2017 3:19 PM CDT
--- NOTE | 2017-10-02 15:33 | CT ---
EXAM DESCRIPTION: Head: Computed Tomography. CLINICAL HISTORY: PARIETAL SKULL SCALP MASS COMPARISON: CT scans of the chest abdomen and in pelvis today with IV contrast. Ultrasound of the umbilicus also today. TECHNIQUE: Non-helical axial scans through the skull and brain, at 2.5 mm intervals, non-contrast. Coronal and sagittal 2.0 mm reconstructions. Note: Scans had to be repeated due to patient motion. Total Exam DLP: 1504.95 mGy-cm. This exam was performed according to our departmental dose-optimization program which includes automated exposure control, adjustment of the mA and/or kV according to patient size and/or use of iterative reconstruction technique; to reduce radiation dose to as low as reasonably achievable (ALARA). FINDINGS: No hemorrhage, no mass-effect, and no midline shift. Low-density in the periventricular white matter parietal-occipital and frontal lobes more dense in the left frontal lobe periventricular white matter. Prior left temporal and left parietal craniectomy with attachment of plate to outer table of the skull. No abnormal radiodense material in the brain parenchyma. Vascular calcifications anterior and posterior circulations; physiologic calcifications in the pineal gland and choroid plexus. No effacement or displacement of the ventricles, CSF spaces, or subdural spaces. No extra axial fluid collection or hemorrhage. No gross abnormalities of the bony calvarium. In the upper left prior occipital scalp, there is a 1 x 2 cm soft tissue mass without calcifications. No bony changes. Included paranasal sinuses and mastoid air cells are well - aerated. IMPRESSION: 1. No hemorrhage, no mass effect, no midline shift. Periventricular white matter leukomalacia is most likely related to aging and cerebral microvascular disease. However asymmetric low-density in the left periventricular frontal lobe could represent more recent ischemia or a mass with white matter edema. Consider follow-up CT scan of the head with IV contrast if clinically indicated. 2. Soft tissue lesion in the scalp abutting the left parieto-occipital lobe near the vertex could represent a benign lesion or metastasis. Electronically signed by: aMhesh Frausto MD 10/02/2017 3:31 PM CDT
--- NOTE | 2017-10-02 16:34 | CT ---
EXAM DESCRIPTION: Abdomen/Pelvis w/wo Contrast: Computed Tomography. CLINICAL HISTORY: ABD PAIN. Lung mass. Periumbilical mass. COMPARISON: Ultrasound of the periumbilical soft tissues. CT scan of the head without contrast. CT scan of the chest with IV contrast. TECHNIQUE: Spiral-axial scans at 5.0 - mm intervals from the lung bases through the pubic symphysis, scans repeated through the same levels after nonionic IV contrast. Coronal and sagittal 2.0 - mm reconstructions. Delayed helical axial 5.0 - mm scans, same levels. Repeat coronal and sagittal reconstructions. No adverse reactions. Total Exam DLP: 987.4 mGy-cm. This exam was performed according to our departmental CT dose-optimization program which includes automated exposure control, adjustment of the mA and/or kV according to patient size and/or use of iterative reconstruction technique; to reduce radiation dose to as low as reasonably achievable (ALARA). FINDINGS: Liver, Spleen, Stomach, Adrenal glands: Large low-density mass with rim enhancement in the inferior right lobe of the liver measuring 6.5 x 4.7 cm. Similar appearing mass smaller at the junction of the medial lateral segments of the left lobe measuring 2.1 cm. At least 4 other masses with similar imaging correct characteristics in the right lobe. Smaller lesion more inferiorly in the left lobe near the avery hepatis. Dilated intrahepatic ducts, and common hepatic duct. 1 cm partially enhancing mass abutting the inferior lateral spleen and the colon just distal to the splenic flexure. Enlarged left adrenal gland with inhomogeneous enhancement measuring 2.6 x 1.8 x 3.0 cm. Pancreas/Gallbladder/Ducts: 2.7 x 1.8 x 1.1 cm poorly enhancing mass in the junction of the head and body of the pancreas. Minimal pancreatic duct dilation. 3.1 x 2.7 x 2.6 cm poorly enhancing mass within or abutting the tail of the pancreas. 1 cm lymph node abutting the tail of the pancreas. 1.5 cm lymph node posterior to the body of the pancreas and inferior to the body of the pancreas and abutting the distal duodenum and junction with the jejunum. Gallbladder with thickened dove and sludge inferiorly as well as dilation. Marked distention of the proximal and mid common bile duct minimal distention distally. Kidneys and Ureters: Atherosclerotic calcifications with no hydronephrosis or perinephric fluid. 1.5 cm cyst posterior left kidney. Subcentimeter daughter cyst or mass posterior to the same kidney.. Mesentery: Stranding in the periportal region, avery hepatis, peripancreatic region no free air. No ascites. Fascial thickening in the bilateral paracolic regions. 1.5 cm partially enhancing mass abutting the lateral abdominal wall in the left paracolic gutter. Aorta: 1.2 cm para-aortic node inferior to the left renal artery. Aorta is ectatic with moderate atherosclerotic calcifications and calcifications involving the ostia of the major branch vessels. This is extending into the bilateral common iliac vessels. Small Bowel: Contains gas mostly proximally and mostly fluid distally with some mildly distended loops above the pelvis. Terminal Ileum/Cecum: Normal caliber appendix is visualized. Colon: Minimal gas and fecal material mostly recommended pattern distally. Gas in the transverse colon. Pelvic Organs: Rectum distended with fecal matter. 3 cm rim-enhancing lymph node right iliac chain anterior to the inferior right SI joint. Irregular enhancement and a mass involving the anterior and right aspect of the bladder with calcifications low-density and small air pockets in the mass which measures approximately 3.7 x 5.7 x 2.4 cm. Fatty stranding on the superior right lateral and anterior aspect of the bladder. Contrast can be seen in the inferior left lateral aspect of the bladder. Spine and Bony Pelvis: Spondylosis at multiple levels of the lumbar spine with levoscoliosis of the lower lumbar spine. Depression of the L1 superior endplate also seen on prior studies. No destructive lesions. Fragmentation of old left femoral fracture with displacement of the fragments at the junction of the trochanter and base of the left femoral neck. Varus orientation of the femoral neck and femoral shaft. Effusion and soft tissue edema around the fracture fragments. Previous hardware has been removed. No femoral head dislocation from the acetabulum. Arthrosis in the SI joints and pubic symphysis and minimal arthrosis right hip joint. Abdominal Wall/Back Soft Tissues: Subcutaneous periumbilical mass displacing the skin with minimal enhancement measuring 3.1 x 3.0 x 2.5 cm. Enhancing 1 cm nodule surrounded by edema in the superior left gluteal region almost at the level of the upper iliac crest. Slightly smaller nodule slightly more superior. Enhancing subcutaneous tissue lateral and just superior to the left greater trochanteric fragments. Subcentimeter nodules bilaterally posterior to the superior femoral shafts. Minimally enhancing nodules lower right lateral chest wall approximately 1 cm diameter and just inferior and lateral to the inferior right breast. IMPRESSION: 1. Multiple hepatic masses in both lobes with the largest measuring 6.5 cm in the right lobe. Multiple pancreatic masses at the junction of the body and head and also in the tail. Periportal avery hepatis and peripancreatic nodes. Dilated gallbladder with wall thickening and sludge. Dilated common bile duct and pancreatic duct. These hepatic and pancreatic masses could indicate pancreatic cancer and spread to the peripancreatic nodes and liver or synchronous lung and pancreatic malignancies, or lung metastasis to the abdomen. Also multiple masses in the mesentery, chest wall, and abdominal wall representing metastatic lesions. At least one abnormal lymph node in the pelvic cavity with free fluid. 2. Fragmented old nonhealed fracture at the junction of the left femoral neck and trochanteric region and varus deformity. Hardware has been removed. Soft tissue swelling and effusion. 3. Mass in the superior right aspect of the urinary bladder could represent a primary or metastatic malignancy or inflammatory process. Air bubbles indicating necrosis. 4. Significant atherosclerotic involvement of the aorta and proximal common iliac arteries and the ostia of the major branch vessels from the aorta. CRITICAL COMMUNICATION: The critical value was discussed directly by phone with Dr. Kiko Saunders at approximately 1510 hours, on October 02, 2017. Electronically signed by: Mahesh Frausto MD 10/02/2017 4:32 PM CDT
--- NOTE | 2017-10-02 17:14 | US ---
EXAM DESCRIPTION: Soft Tissue,Abdomen: ULTRASOUND. CLINICAL HISTORY: ABDOMEN PAIN. Paraumbilical soft tissue mass has grown rapidly in recent weeks. COMPARISON: CT scan of the head without contrast and CT scan of the chest and abdomen and pelvis with IV contrast today. TECHNIQUE: Transcutaneous scanning: Two-dimensional and Doppler modes. FINDINGS: Irregular lobulated margin mass protruding from the abdomen covered by skin abutting the umbilicus. Dimensions are 3.1 x 2.6 cm. Mixed posterior acoustic shadowing and enhancement. The inferior aspect of the mass demonstrates vascularity. No cystic component. No communication with abdominal cavity.. IMPRESSION: 3.1 cm hypoechoic vascular mass in the subcutaneous tissues abutting the umbilicus. Appearance suggests a benign or malignant tumor. Consider tissue sampling. Electronically signed by: Mahesh Frausto MD 10/02/2017 5:12 PM CDT
== END | disposition home or self-care (01) ==
LOC: US 08:18
PROVIDERS: ATTEND Family Medicine
DX: R91.1 Solitary pulmonary nodule (principal); R10.9 Unspecified abdominal pain